=== PATIENT | male | born 1945 | race Caucasian/White ===

== ENCOUNTER 2017-04-01 17:06 | Inpatient (IN) | payer MEDICARE, OTHER ==
[~2017-04-01] VITALS: Ht 177.8 cm; Wt 83.9 kg
[2017-04-01] MEDS ORDERED: DIPHENOXYLATE/ATROPINE 2.5MG/0.025MG (LOMOTIL) TAB PO PRN (20:45)
[2017-04-01] MEDS ORDERED: FUROSEMIDE 20 MG (LASIX) TAB PO PRN (20:45)
[2017-04-01] MEDS ORDERED: PANTOPRAZOLE 20 MG TABLET (PROTONIX) PO ONE (21:00)
[2017-04-01] MEDS ORDERED: inSUlin DETERMIR 1 UNIT/0.01 ML (LEVEMIR) CHARGE PER UNIT SQ SCH (21:00)
[2017-04-01] MEDS: CARVEDILOL 12.5 MG (COREG) TABLET PO SCH (21:50)
[2017-04-01] MEDS: SIMvastatin 10 MG (ZOCOR) TAB PO SCH (21:50)
[2017-04-01] MEDS: GABAPENTIN 300 MG (NEURONTIN) CAP PO SCH (21:50)
[2017-04-01] MEDS: COLESTIPOL 1 GM (COLESTID) TAB PO SCH (21:52)
[2017-04-02 05:00] VITALS: BP 134/73
[2017-04-02] MEDS: CHLORTHALIDONE 25 MG (HYGROTON) TABLET PO SCH ×2 (05:47→17:05)
[2017-04-02 06:02] LABS: BASOPHILS % (AUTO) 0 % (0-10); EOSINOPHILS % (AUTO) 0 % (0-10); LYMPHOCYTES # (AUTO) 0.5 X 10^3 (1.0-4.0); LYMPHOCYTES % (AUTO) 8 % (12-44); MEAN CORPUSCULAR HEMOGLOBIN 29 PG (25-34); MEAN CORPUSCULAR HGB CONC 34 G/DL (32-36); MEAN CORPUSCULAR VOLUME 85 FL (80-99); MEAN PLATELET VOLUME 11.6 FL (7.4-10.4); MONOCYTES # (AUTO) 0.5 X 10^3 (0.0-1.0); MONOCYTES % (AUTO) 8 % (0-12); NEUTROPHILS # (AUTO) 5.2 X 10^3 (1.8-7.8); NEUTROPHILS % (AUTO) 84 % (42-75); PLATELET COUNT 188 10^3/uL (130-400); RED BLOOD COUNT 3.62 10^6/uL (4.35-5.85); RED CELL DISTRIBUTION WIDTH 14.5 % (10.0-14.5); WHITE BLOOD COUNT 6.2 10^3/uL (4.3-11.0)
[2017-04-02 06:20] LABS: ALBUMIN 3.6 GM/DL (3.2-4.5); BILIRUBIN,TOTAL 0.5 MG/DL (0.1-1.0); CALCIUM 10.2 MG/DL (8.5-10.1); CREATININE SERUM 2.42 MG/DL (0.60-1.30); POTASSIUM 4.3 MMOL/L (3.6-5.0); TOTAL PROTEIN 7.7 GM/DL (6.4-8.2)
[2017-04-02] MEDS ORDERED: inSUlin ASPART (NovoLOG) 1 UNIT/0.01 ML (CHARGE PER UNIT) SC SCH ×2 (07:00→12:00)
[2017-04-02] MEDS: amLODIPine 5 MG (NORVASC) TAB PO SCH (07:57)
[2017-04-02] MEDS: ASPIRIN E.C. 81 MG (ECOTRIN) TAB PO SCH (07:58)
[2017-04-02] MEDS: VITAMIN D3 1,000 UNITS (CHOLECALCIFEROL) TABLET PO SCH (07:58)
[2017-04-02] MEDS: CARVEDILOL 12.5 MG (COREG) TABLET PO SCH ×2 (07:58→20:16)
[2017-04-02] MEDS: COLESTIPOL 1 GM (COLESTID) TAB PO SCH (07:58)
[2017-04-02] MEDS: doxAzosin 4 MG (CARDURA) TAB PO SCH (08:20)
[2017-04-02] MEDS ORDERED: inSUlin (REGULAR) HUMAN 1 UNIT/0.01 ML (CHARGE PER UNIT) SC SCH (11:00)
--- NOTE | 2017-04-02 11:12 | Occupational Therapy Eval ---
OT Evaluation-General/PLF Medical Diagnosis Admission Date Apr 01, 2017 at 20:01 Medical Diagnosis: L3-4 Dec and fusion L5-S1 lami and benita foraminotamy/ diskectomy Onset Date: Mar 29, 2017 Therapy Diagnosis Therapy Diagnosis: Decreased ADL skills Height/Weight Height (Feet): 5 Height (Inches): 10.00 Weight (Pounds): 188 Weight (Ounces): 8.0 Precautions Precautions/Isolations: Fall Prevention, Standard Precautions Safety Interventions: None Weight Bear Status Weight Bearing Restriction: Weight Bearing/Tolerated Back precautions. No brace given to him from surgery. However, does have brace at home that he may have someone bring in for comfort. Referral Physician: Dr. pacheco Referral Reason: Activity Tolerance, Self Care, Evaluation/Treatment, Strengthening/ROM Medical History Pertinent Medical History: DM, GERD, HTN Additional Medical History Hyperlipidemia, Diabetic polyneuropathy, cancer, neuro stimulator placed 07-27-16 Current History Pt. states that he has had multiple surgeries and has learned how to compensate over the years. Had neuro stimulator placed in Jul this year. States that it has helped with the pain. Reviewed History: Yes Social History Home: Single Level Current Living Status: Children Entry Into Home: Stairs With Railing Steps Into Home: 3 Lives with son but son is on dialysis and can't help very much. ADL-Prior Level of Function ADL PLOF Comments Pt. was independent with basic self care needs. States that he cooked, cleaned , and did laundry. States that he can likely have someone assist with those things if needed. DME/Equipment: Tub/Shower DME/Equipment Comments Pt. has a cane and a walker. 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 Appearance Pt. is dressed and sitting up in chair. Agrees to work with OT. 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 This does limit full UE ROM. ADL-Treatment Functional [place] Measure 0=Not Assessed/NA 4=Minimal Assistance 1=Total Assistance 5=Supervision or Setup 2=Maximal Assistance 6=Modified [place] 3=Moderate Assistance 7=Complete IndependenceIRFPAI Quality Coding Scale 6 Independent with activity with or without an assistive device 5 Patient requires set up or clean up by helper. Patient completes activity by themselves 4 Supervision or touching assist (CGA). [place] provide cues , steadying assist 3 The helper provides less than half the effort to complete the activity 2 The helper provides more than half the effort to complete the activity 1 Dependent. The helper does all the effort to complete an activity 7 Patient refused to complete or attempt activity 9 The patient did not perform the activity before the current illness or injury 88 Not attempted due to Medical conditions or safety concerns Eating (FIM): 6 Eating (QC): 6 Grooming (FIM): 6 Bathing (FIM): 5 (SBA in shower.) Shower/Bathe Self (QC): 4 Upper Body Dressing (FIM): 5 Upper Body Dressing (QC): 4 Lower Body Dressing (FIM): 5 Lower Body Dressing (QC): 4 On/Off Footwear (QC): 4 Transfers (B, C, W/C) (FIM): 5 (SBA with walker.) Shower Transfer (FIM): 5 Other Treatments Pt. able to complete ADL transfers with SBA using walker. Able to doff clothing , don clothing, and shower with SBA for safety. Pt. states that he knows to take his time. No adaptive equipment needed. Pt. educated on back safety and back precautions. Education OT Patient Education: Correct positioning, Modified ADL techniques, Progress toward Goal/Update tx plan, Purpose of tx/functional activities, Reviewed precautions, Rehab process, Safety issues, Transfer techniques Teaching Recipient: Patient Teaching Methods: Demonstration, Discussion Response to Teaching: Verbalize Understanding, Return Demonstration OT Short Term Goals Short Term Goals 1=Demonstrate adherence to instructed precautions during ADL tasks. 2=Patient will verbalize/demonstrate understanding of assistive devices/ modifications for ADL. 3=Patient will improve strength/tolerance for activity to enable patient to perform ADL's. OT Travel Coordinator Goals Travel Coordinator Goals Time Frame: Apr 16, 2017 Eating (FIM): 6 Eating (QC): 6 Groomin Oral Hygiene (QC): 6 Bathing(FIM): 6 Shower/Bathe Self (QC): 6 Upper Body Dressing(FIM): 6 Upper Body Dressing (QC): 6 Lower Body Dressing(FIM): 6 Lower Body Dressing (QC): 6 On/Off Footwear (QC): 6 Toileting(FIM): 6 Toileting Hygiene (QC): 6 Transfers (B,C,W/C) (FIM): 6 Toilet/Commode Transfer(FIM): 6 Toilet/Commode Transfer (QC): 6 Shower Transfer(FIM): 6 Additional Goals: 1-Demonstrate ADL Tasks, 2-Verbalize Understanding, 3- ImproveStrength/Cristal 1=Demonstrate adherence to instructed precautions during ADL tasks. 2=Patient will verbalize/demonstrate understanding of assistive devices/ modifications for ADL. 3=Patient will improve strength/tolerance for activity to enable patient to perform ADL's. OT Education/Plan Problem List/Assessment Assessment: Decreased Activ Tolerance, Impaired I ADL's, Impaired Self-Care Skills Discharge Recommendations Plan/Recommendations: Continue POC Therapy D/C Recommendations: Home Independently Equpiment Recommendations-D/C: Extended Bath Bench Target Placement Home independently Patient/Family Goals Pt. states that he would like to be more flexible in his legs, and would like to have more endurance, walk further. Treatment Plan/Plan of Care Treatment,Training & Education: Yes Patient would benefit from OT for education, treatment and training to promote independence in ADL's, mobility, safety and/or upper extremity function for ADL' s. Plan of Care: ADL Retraining, Functional Mobility, UE Funct Exercise/Act Treatment Duration: Apr 16, 2017 Frequency: At least 5 of 7 days/Wk (IRF) Estimated Hrs Per Day: 1.5 hours per day Agreement: Yes Rehab Potential: Good Time/GCodes Start Time: 09:10 Stop Time: 11:10 Total Time Billed (hr/min): 90 Billed Treatment Time [id number] 1, EVM x 15minutes, ADL x 25minutes [id number] 1, ADL x 45minutes DEVAUGHN GUTIERREZ OT Apr 02, 2017 11:12
[2017-04-02] MEDS ORDERED: inSUlin ASPART (NovoLOG) 1 UNIT/0.01 ML (CHARGE PER UNIT) SC ONE ×2 (11:45→12:00)
--- NOTE | 2017-04-02 13:20 | Consultation-Hospitalist ---
HPI History of Present Illness: HPI/Chief Complaint CC: Medical management in rehab following lumbar spine surgery HPI: This is a 72-year-old white male of primary care provider in [place], Dr. Henry Endocrinology, and Dr Petit Nephrology who presents to the inpatient rehabilitation for severe debility requiring short stay prior to discharge home with son who works most of the time. Blood sugar was 491 prompting urgent consultation with me of which I initiated sliding scale see and we her in the mist of changing back over to Lantus his home medication since Levemir does not adequately treat his diabetes and getting back on her home dose of 60 units at night. He has not had a bowel movement since Tuesday but he does not want aggressive laxatives so Colace was ordered as he has agreed to take that. He is moving around very well with walker and denies any significant problems. I checked his last labs in the hospital creatinine is 1.8 today is 2.4 so we'll monitor that closely. 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) Alcohol Use: Denies Use Recreational Drug Use: No Smoking Status: Former Smoker Former Smoker, Quit: Jun 13, 1966 Type Used: Cigarettes Physical Abuse Screen: No Sexual Abuse: No Recent Foreign Travel: No Contact w/other who traveled: No Recent Hopitalizations: Yes (back surgery) Recent Infectious Disease Expo: No Immunizations Up To Date Date of Pneumonia Vaccine: Jun 13, 2015 Date of Influenza Vaccine: Mar 10, 2017 Seasonal Allergies Seasonal Allergies: No Surgeries Yes Orthopedic Respiratory Yes Sleep Apnea Currently Using CPAP: No Currently Using BIPAP: No Cardiovascular Yes High Cholesterol, Hypertension Neurological Yes Neuropathy Genitourinary Yes Renal Failure Gastrointestinal Yes Gastroesophageal Reflux, Chronic Constipation Musculoskeletal Yes Arthritis, Back Injury, Chronic Back Pain, Spasms Endocrine History of Endocrine Disorders: Yes Endocrine Disorders: Diabetes, Insulin dep HEENT History of HEENT Disorders: No Cancer Yes Psychosocial History of Psychiatric Problem: No Integumentary History of Skin or Integumenta: No Blood Transfusions History of Blood Disorders: No Family Medical History Family Hx: Patient reports no known family medical history. Review of Systems Constitutional: see HPI EENTM: no symptoms reported Respiratory: no symptoms reported Cardiovascular: no symptoms reported Gastrointestinal: constipation Genitourinary: no symptoms reported Musculoskeletal: back pain Skin: no symptoms reported Psychiatric/Neurological: No Symptoms Reported All Other Systems Reviewed Negative Unless Noted: Yes Physical Exam Physical Exam Vital Signs Vital Sign - Last 12Hours 04/02/17 05:00 Temp 97.4 Pulse 69 Resp 24 B/P (MAP) 134/73 Pulse Ox 94 O2 Delivery Room Air Capillary Refill : General Appearance: No Apparent Distress, WD/WN, Chronically ill, Other ( kyphosis noted) Eyes: Bilateral Eye Normal Inspection, Bilateral Eye PERRL HEENT: PERRL/EOMI, Normal ENT Inspection, Pharynx Normal Neck: Full Range of Motion, Normal Inspection, Non Tender, Supple, Carotid Bruit Respiratory: Chest Non Tender, Lungs Clear, Normal Breath Sounds, No Accessory Muscle Use, No Respiratory Distress Cardiovascular: Regular Rate, Rhythm, No Edema, No Gallop, No JVD, No Murmur, Normal Peripheral Pulses Gastrointestinal: Normal Bowel Sounds, No Organomegaly, No Pulsatile Mass, Non Tender, Soft Back: Normal Inspection, No CVA Tenderness, No Vertebral Tenderness Extremity: Normal Capillary Refill, Normal Inspection, Normal Range of Motion, Non Tender, No Calf Tenderness, No Pedal Edema Neurologic/Psychiatric: Alert, Oriented x3, No Motor/Sensory Deficits, Normal Mood/Affect Skin: Normal Color, Warm/Dry Lymphatic: No Adenopathy Results Results/Procedures Lab Laboratory Tests 04/02/17 05:43 Assessment/Plan Admission Diagnosis Assessment: Diabetes mellitus adequate control due to steroid injection and insufficient insulin so resuming home medication including Lantus and do not substitute Levemir since that is inadequate per patient Postop constipation agrees to Colace but nothing more Chronic renal failure managed by nephrology usual creatinine is 1.8-2.2 Hypertension Hyperlipidemia Lumbar stenosis Kyphosis chronic Assessment and Plan Plan: Sliding scale NovoLog see Home Lantus supply of 60 units at night Colace for constipation Monitor creatinine closely Clinical Quality Measures DVT/VTE Risk/Contraindication: Risk Factor Score Per Nursin RFS Level Per Nursing on Admit: 4+=Very High GARRICK MCKEON 21, 2017 13:20
[2017-04-02] MEDS ORDERED: HYDROcodone/APAP 10 MG/325 MG (LORTAB) TAB PO PRN (13:30)
[2017-04-02] MEDS ORDERED: DOCUSATE SODIUM 100 MG (COLACE) CAP PO SCH (13:30)
--- NOTE | 2017-04-02 13:40 | Physical Therapy Evaluation ---
PT Evaluation-General Medical Diagnosis Admission Date Apr 01, 2017 at 20:01 Medical Diagnosis: L3-4 Dec and fusion L5-S1 lami and benita foraminotamy/ diskectomy Onset Date: Mar 29, 2017 Therapy Diagnosis Therapy Diagnosis: impaired mobility, strength, endurance Height/Weight Height (Feet): 5 Height (Inches): 10.00 Weight (Pounds): 188 Weight (Ounces): 8.0 Precautions Precautions/Isolations: Fall Prevention, Standard Precautions Referral Physician: Dr. pacheco Reason for Referral: Evaluation/Treatment Medical History Pertinent Medical History: DM, GERD, HTN, Neuropathy Additional Medical History hyperlipidemia, chronic diarrhea, anemia, morbid obesity, NOELLE, chronic low back pain, spinal cord stimulator Reviewed History: Yes Social History Home: Single Level Current Living Status: Children Entry Into Home: Stairs With Railing PT Steps Into Home: 3 Patient states his son lives with him but he is not in the best of health. Prior/Core FIM Prior Level of Function Functional [place] Measure 0=Not Assessed/NA 4=Minimal Assistance 1=Total Assistance 5=Supervision or Setup 2=Maximal Assistance 6=Modified [place] 3=Moderate Assistance 7=Complete [place] Bed Mobility: 6 Transfers (B,C,W/C) (FIM): 6 Gait: 6 Patient used a cane and sometimes 2 canes prior to his surgery. PT Evaluation-Current Subjective Patient in recliner pre tx, agrees to PT, has pain of 9/10 in low back, nurse notified and pain meds given. Patient does not have a back brace to wear. Patient states he had bad pain in his legs before the surgery and it has gotten much better. Worse pain in the left leg. Pt/Family Goals "to walk without pain" Objective Patient Orientation: Person, Place, Situation ROM/Strength ROM Lower Extremities WNL Strenght Lower Extremities right lower extremity (hip flexion 3+/5, knee flexion 4/5, knee extension 4/5, dorsiflexion 4/5), left lower extremity (hip flexion 3+/5, knee flexion 4/5, knee extension 4/5, dorsiflexion 4/5) Integumentary/Posture Bowel Incontinence: No Neuromuscular (Tone, Coordination, Reflexes) WNL Sensory Hearing: Functional Sensation Right Lower Extremit: Intact Sensation Left Lower Extremity: Intact Sensation Lower Extremities Intact light touch sensation bilaterally, tested in L4-5 and S1 dermatomes. Patient has no complaints of numbness or tingling. Transfers Functional [place] Measure 0=Not Assessed/NA 4=Minimal Assistance 1=Total Assistance 5=Supervision or Setup 2=Maximal Assistance 6=Modified [place] 3=Moderate Assistance 7=Complete IndependenceIRFPAI Quality Coding Scale 6 Independent with activity with or without an assistive device 5 Patient requires set up or clean up by helper. Patient completes activity by themselves 4 Supervision or touching assist (CGA). [place] provide cues , steadying assist 3 The helper provides less than half the effort to complete the activity 2 The helper provides more than half the effort to complete the activity 1 Dependent. The helper does all the effort to complete an activity 7 Patient refused to complete or attempt activity 9 The patient did not perform the activity before the current illness or injury 88 Not attempted due to Medical conditions or safety concerns Transfers (B, C, W/C) (FIM): 5 Scootin Rollin Roll Left to Right (QC): 4 Supine to/from Sit: 5 Sit to/from Stand: 5 Sit to Lying (QC): 4 Lying to Sitting/Side of Bed(Q: 4 Sit to Stand (QC): 4 Patient performs bed mobility and transfers with SBA. Good safety, appropriate use of hand placement, does a log roll well. Gait Does the Patient Walk?: Yes Mode of Locomotion: Walk Anticipated Mode of Locomotion: Walk Gait (FIM): 5 Walk 10 feet (QC): 4 Walk 50 ft with 2 Turns(QC): 4 Walk 150 ft (QC): 4 Walking 10ft/uneven surface-QC: 4 Distance: 150'x3 Gait Level of Assist: 5 Gait Persons Needed: 1 Gait Assistive Device: FWW Comments/Gait Description Patient can ambulate 150' with SBA using a rolling walker (including 50' with at least 2 turns of 90 degrees and 10' over an uneven surface). He has slow, steady, but antalgic ambulation. He tends to slump forward pretty far. Wheelchair Training Does the Pt Use a Wheelchair?: No Stairs Stairs (FIM): 2 #of Steps: 4 Level of Assist: 5 1 Step (curb) (QC): 4 4 Steps (QC): 4 12 Steps (QC): 88 Patient can go up and down 4 steps using 2 handrails with SBA. Balance Sitting Static: Normal Sitting Dynamic: Normal Standing Static: Good Standing Dynamic: Good Treatment NuStep 15' level 5, bed mobility (log roll) training, transfer training, ambulation Assessment/Needs Patient has impaired mobility, strength, and endurance post lumbar surgery. He has significant pain and poor posture. Rehab Potential: Fair PT Short Term Goals Short Term Goals Time Frame: Apr 09, 2017 Transfers (B,C,W/C) (FIM): 6 Gait (FIM): 6 Gait Distance Comment: 300' Gait Assistive Device: FWW Stairs (FIM): 2 # of Steps: 8 Stairs Level of Assist: 5 PT Assisted Goals Assisted Goals PT Assisted Goals Time Frame: Apr 23, 2017 Transfers (B,C,W/C) (FIM): 6 Sit to Lying (QC): 6 Lying-Sitting on Side/Bed(QC): 6 Sit to Stand (QC): 6 Rollin Roll Left to Right (QC): 6 Car Transfer (QC): 6 Gait (FIM): 6 Distance: 300' Walk 10 feet (QC): 6 Walk 10ft-Uneven Surface(QC): 6 Walk 50ft with 2 Turns (QC): 6 Walk 150 ft (QC): 6 Gait Assistive Device: Cane Single Point Stairs (FIM): 5 # of Steps: 12 1 Step (curb) (QC): 4 4 Steps (QC): 4 12 Steps (QC): 4 Stairs Level Of Assist: 5 Picking up an Object (QC): 4 PT Plan Problem List Problem List: Activity Tolerance, Functional Strength, Safety, Balance, Gait, Transfer, Bed Mobility, ROM Treatment/Plan Treatment Plan: Continue Plan of Care Treatment Plan: Bed Mobility, Education, Functional Activity Cristal, Functional Strength, Group Therapy, Gait, Safety, Therapeutic Exercise, Transfers Treatment Duration: Apr 23, 2017 Frequency: At least 5 of 7 days/Wk (IRF) Estimated Hrs Per Day: 1.5 hours per day Patient and/or Family Agrees t: Yes Safety Risks/Education Patient Education: Gait Training, Transfer Techniques, Steps, Correct Positioning, Disease Process, Safety Issues Teaching Recipient: Patient Teaching Methods: Demonstration, Discussion Response to Teaching: Reinforcement Needed Discharge Recommendations Plan Patient will perform bed mobility and transfer training, balance and endurance training, functional strengthening, stair training, gait training, and education , to improve functional mobility and independence at home. Therapy D/C Recommendations: Home w/ Family Support Time/GCodes Time In: 1215 Time Out: 1345 Total Billed Treatment Time: 90 Total Billed Treatment 1 visit EVL 30' GT 30' EX 15' FA 15' DESIREE REZA PT Apr 02, 2017 13:40
[2017-04-02] MEDS: DOCUSATE SODIUM 100 MG (COLACE) CAP PO SCH ×2 (13:58→20:16)
[2017-04-02] MEDS: inSUlin ASPART (NovoLOG) 1 UNIT/0.01 ML (CHARGE PER UNIT) SC SCH ×2 (16:29→20:15)
[2017-04-02] MEDS ORDERED: CHLORTHALIDONE 25 MG (HYGROTON) TABLET PO SCH (17:00)
[2017-04-02 17:27] VITALS: BP 131/63
--- NOTE | 2017-04-02 18:04 | PM&R Post Admission Assessment ---
Post Admission Physician Asses The preadmission screen agrees with the post admission assessment that the patient is a good candidate for inpatient rehabilitation. The patient will have a comprehensive program of inpatient rehabilitation with a goal of maximizing level of functional independence prior to discharge home with [facility]. The patient will have PT/OT ninety minutes per day, each discipline , five days a week for 10 days for gait, strengthening, conditioning, balance, ADLs, any patient/family/caregiver training as necessary. Speech therapy to do cognitive assessment and treat as indicated. Rehabilitation nursing to assist with bowel, bladder, skin, wound care, medication administration, pain management. Musical Instrument Supervisor to assist with discharge planning, community reentry. SCD's for DVT prophylaxis. He appears to be well motivated to participate in three hours of therapy a day. He should be able to tolerate three hours of therapy a day from a medical and surgicalstandpoint. He should benefit from the three hours of therapy a day. He has a reasonable discharge plan, reasonable discharge rehabilitation goals and a supportive family. He has various comorbidities that need to be closely monitored with medications and treatments adjusted on a daily basis as needed. These include: POORLY CONTROLLED dm htn pOSTOPANEMIA] Barriers to discharge for this patient who had been independent prior to this are for him to be modified independent to supervision for ADLs and mobility skills prior to discharge home with , so as to lessen the burden of the caregivers.tHE PATIENT HAD BEEN mODIFIED iNDEPENDENT WITH A CANE PRIOR TO THIS Risks for this patient include: 1. Fall 2. Fracture 3. DVT 4. Pulmonary embolism 5. Wound infection 6. Skin breakdown 7. Contractures 8. Poorly controlled pain 9. Urinary retention 10. UTI 11. Respiratory infection 12. Aspiration 13 pOORLY CONTROLLED dm 14. pOORLY CONTROLLED htn 15. wORSENING cHRONIC kIDNEY d Estimated Length of Stay: 10]days Prognosis: Rehab prognosis appears good for goal of discharge home with [facility] modified independent to supervision for ADLs and mobility skills. YOBANY RIOJAS MD Apr 02, 2017 18:04
--- NOTE | 2017-04-02 19:10 | HISTORY AND PHYSICAL ---
DATE OF SERVICE: CHIEF COMPLAINT: Difficulty with walking. 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 The patient was assessed by spine surgery on an outpatient basis and the patient was admitted to outside hospital in [place], [place] for a lumbar laminectomy and fusion of L3-S1 and a L5-S1 discectomy for HNP associated with Lumbar spinal stenosis. The patient has had a neurostimulator placed in the past as well as other conservative treatments. It did not control his pain. He is now referred to inpatient rehabilitation unit for ongoing rehabilitation prior to discharge home alone. He lives in [place], [place]. Currently, he is min assist for dressing, modified independent for eating, set up for grooming, min assist for bathing and toileting. He is min assist for transfers, bed mobility and ambulation with a front wheel walker. He is utilizing hydrocodone/APAP for pain control. His blood sugar today was up to 491. He apparently has been a type 1 diabetic since a teenager and had been stable at home followed by endocrinology in [place]. He had a course of steroids while at outside hospital in [place] which apparently has decreased his control. Dr. Varghese has been consulted today on 04/02/2017. Appreciate, her consult and orders. PAST MEDICAL HISTORY: Type 1 diabetes mellitus and hypertension. PAST SURGICAL HISTORY: As per above. ALLERGIES: Penicillin. FAMILY HISTORY: Noncontributory. 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 REVIEW OF SYSTEMS: Ten point review of systems significant for constipation. He reports no BM for several days. He does have a history of chronic constipation, also back pain. MEDICATIONS: Hydrocodone/APAP 10 one tablet p.o. b.i.d. p.r.n. moderate pain, Lantus insulin 60 units subq bedtime. OxyIR 7.5 mg p.o. 4 hours p.r.n. severe pain. NovoLog insulin sliding scale insulin regimen C. Colace 200 mg p.o. b.i.d. Vitamin D3 2000 units p.o. daily. Amlodipine 10 mg p.o. daily. ASA 81 mg p.o. daily. Cardura 4 mg p.o. daily. Hydralazine 25 mg p.o. b.i.d. Coreg 25 mg p.o. b.i.d. Gabapentin 300 mg p.o. at bedtime. Simvastatin 10 mg p.o. at bedtime. Protonix 20 mg p.o. b.i.d. Flexeril 10 mg p.o. daily p.r.n. muscle spasm. PHYSICAL EXAMINATION: GENERAL: Significant for a male appearing stated age, alert and oriented, no acute distress. VITAL SIGNS: He is afebrile, pulse is 67, respirations 18, blood pressure 131/63, O2 sat 96% on room air. HEENT: Vision, speech hearing grossly intact. No oral lesions noted. NECK: Supple without mass. HEART: Regular rhythm. LUNGS: Clear. ABDOMEN: Soft, nontender. Bowel sounds present. EXTREMITIES: No leg edema. No calf tenderness. BACK: Incision site with a clean, dry dressing in place. MUSCULOSKELETAL: The patient has functional active range of motion of all four extremities. He has normal strength both upper extremities, strength of both lower extremities 3+, at the hip flexors 4/5, otherwise. NEUROLOGIC: Sensation is grossly intact to touch. Cognition grossly intact. IMPRESSION: 1. Ambulatory dysfunction secondary to lumbar spinal stenosis and HNP status post decompression,fusion and discectomy as per above done by Spine surgery, outside [place], [place]. 2. Chronic constipation exacerbated by postop constipation, meds adjusted today. 3. Kyphosis of the spine. 3. Poorly controlled diabetes mellitus type 1 at this time, medications adjusted by Dr. Varghese. 4. Hypertension, controlled with medication. 5. Mild postop anemia. 6. Chronic kidney disease related to hypertension and diabetes mellitus. PLAN: The patient will have a comprehensive program of inpatient rehabilitation, with goal of maximizing level of functional independence prior to discharge home with home health care. The patient will have PT, OT 90 minutes each discipline, five days a week for 10 days for gait strengthening and conditioning, balance, ADLs any patient family caregiver training necessary adaptive equipment and training necessary. Speech therapy to do cognitive assessment and treat as indicated. Rehabilitation nursing to assist with bowel, bladder skin care, medication administration and pain management. multimedia services manager to assist with discharge planning and community reentry. Follow up with Dr. Varghese as per her schedule. Monitor Accu-Cheks and adjust insulin regimen as appropriate, therapy with cardiac and fall precautions. ESTIMATED LENGTH OF STAY: 10 days. PROGNOSIS: Fair. Prognosis to good for goal of discharging home with home health care modified independent to supervision for ADLs and mobility skills. DIET: Carb consistent. CODE STATUS: Full code. Follow up with his spine surgeon and PCP upon discharge on an outpatient basis as well as his lunchroom operator and director of enterprise architecture ben Job ID: [id number] DocumentID: [id number] Dictated Date: 04/02/2017 18:16:14 Family Consultant Date: 04/02/2017 19:10:14 Dictated By: YOBANY RIOJAS MD MTDD
[2017-04-02] MEDS: LANTUS SOLOSTAR SQ SCH (20:15)
[2017-04-02] MEDS: GABAPENTIN 300 MG (NEURONTIN) CAP PO SCH (20:16)
[2017-04-02] MEDS: SIMvastatin 10 MG (ZOCOR) TAB PO SCH (20:16)
[2017-04-02] MEDS ORDERED: inSUlin DETERMIR 1 UNIT/0.01 ML (LEVEMIR) CHARGE PER UNIT SQ SCH (21:00)
[2017-04-03] MEDS: CHLORTHALIDONE 25 MG (HYGROTON) TABLET PO SCH ×2 (06:02→16:35)
[2017-04-03] MEDS: inSUlin ASPART (NovoLOG) 1 UNIT/0.01 ML (CHARGE PER UNIT) SC SCH ×4 (06:03→20:56)
[2017-04-03 06:09] VITALS: BP 113/54
[2017-04-03] MEDS: amLODIPine 5 MG (NORVASC) TAB PO SCH (08:54)
[2017-04-03] MEDS: VITAMIN D3 1,000 UNITS (CHOLECALCIFEROL) TABLET PO SCH (08:54)
[2017-04-03] MEDS: ASPIRIN E.C. 81 MG (ECOTRIN) TAB PO SCH (08:54)
[2017-04-03] MEDS: CARVEDILOL 12.5 MG (COREG) TABLET PO SCH ×2 (08:55→19:50)
[2017-04-03] MEDS: DOCUSATE SODIUM 100 MG (COLACE) CAP PO SCH ×2 (08:55→19:50)
[2017-04-03] MEDS: doxAzosin 4 MG (CARDURA) TAB PO SCH (08:55)
[2017-04-03] MEDS ORDERED: OMEP20CA12 PO (17:45)
[2017-04-03] MEDS ORDERED: CHOL20003 PO (17:45)
[2017-04-03] MEDS ORDERED: DIPH1TAB25 PO (17:45)
[2017-04-03] MEDS ORDERED: ACET325T49 PO (17:45)
[2017-04-03] MEDS ORDERED: LOVA10TA PO (17:45)
[2017-04-03] MEDS ORDERED: INSU100I14 SQ (17:45)
[2017-04-03] MEDS ORDERED: AMLO10TA2 PO (17:45)
[2017-04-03] MEDS ORDERED: ASPI-983 PO (17:45)
[2017-04-03] MEDS ORDERED: CARV25TA PO (17:45)
[2017-04-03] MEDS ORDERED: COLE1TAB PO (17:45)
[2017-04-03] MEDS ORDERED: GABA-488 PO (17:45)
[2017-04-03] MEDS ORDERED: INSU100I10 SQ (17:45)
[2017-04-03] MEDS ORDERED: DOXA2TAB PO (17:45)
[2017-04-03] MEDS ORDERED: FURO20TA4 PO (17:45)
[2017-04-03] MEDS ORDERED: CHLO25TA22 PO (17:45)
[2017-04-03] MEDS ORDERED: TRAM50TA2 PO (17:45)
[2017-04-03] MEDS ORDERED: OXYC15TA79 PO (18:19)
[2017-04-03] MEDS: SIMvastatin 10 MG (ZOCOR) TAB PO SCH (19:50)
[2017-04-03] MEDS: GABAPENTIN 300 MG (NEURONTIN) CAP PO SCH (19:50)
[2017-04-03] MEDS: LANTUS SOLOSTAR SQ SCH (19:51)
[2017-04-03 19:57] VITALS: BP 134/68
[2017-04-04 05:19] VITALS: BP 139/64
[2017-04-04] MEDS: inSUlin ASPART (NovoLOG) 1 UNIT/0.01 ML (CHARGE PER UNIT) SC SCH ×4 (06:56→20:44)
[2017-04-04] MEDS: CHLORTHALIDONE 25 MG (HYGROTON) TABLET PO SCH ×2 (06:56→16:27)
[2017-04-04] MEDS: amLODIPine 5 MG (NORVASC) TAB PO SCH (08:30)
[2017-04-04] MEDS: ASPIRIN E.C. 81 MG (ECOTRIN) TAB PO SCH (08:30)
[2017-04-04] MEDS: doxAzosin 4 MG (CARDURA) TAB PO SCH (08:31)
[2017-04-04] MEDS: VITAMIN D3 1,000 UNITS (CHOLECALCIFEROL) TABLET PO SCH (08:31)
[2017-04-04] MEDS: DOCUSATE SODIUM 100 MG (COLACE) CAP PO SCH ×2 (08:31→19:34)
[2017-04-04] MEDS: CARVEDILOL 12.5 MG (COREG) TABLET PO SCH ×2 (08:31→19:35)
[2017-04-04] MEDS ORDERED: CYCL10TA9 PO (10:43)
[2017-04-04] MEDS ORDERED: GABA-486 PO (10:43)
[2017-04-04] MEDS ORDERED: SODI650T PO (10:43)
[2017-04-04] MEDS ORDERED: HYDR-3820 PO (10:43)
--- NOTE | 2017-04-04 12:09 | Physical Therapy Daily Note ---
PT Daily Note-Current Subjective Patient is seated in his room upon PT entering. He reports that his back pain is a lot better since the surgery. He reports having some back pain around the incision of the surgery and some radiating nerve pain down the L LE. Pain Numeric Pain Scale: 5-Moderate Pain Location: Left Location Body Site: Back Comment: Radiating pain from back down L LE Appearance Patient appears in good health. Mental Status Patient Orientation: Normal For Age Transfers Functional [place] Measure 0=Not Assessed/NA 4=Minimal Assistance 1=Total Assistance 5=Supervision or Setup 2=Maximal Assistance 6=Modified [place] 3=Moderate Assistance 7=Complete IndependenceIRFPAI Quality Coding Scale 6 Independent with activity with or without an assistive device 5 Patient requires set up or clean up by helper. Patient completes activity by themselves 4 Supervision or touching assist (CGA). [place] provide cues , steadying assist 3 The helper provides less than half the effort to complete the activity 2 The helper provides more than half the effort to complete the activity 1 Dependent. The helper does all the effort to complete an activity 7 Patient refused to complete or attempt activity 9 The patient did not perform the activity before the current illness or injury 88 Not attempted due to Medical conditions or safety concerns Transfers (B, C, W/C) (FIM): 6 Scootin Rollin Roll Left to Right (QC): 5 Supine to/from Sit: 6 Sit to/from Stand: 6 Sit to Lying (QC): 5 Sit to Stand (QC): 5 Chair/Bdf-xf-[id number] Xfer(QC): 5 Bed to/from Chair: 6 Car Transfer (QC): 5 Patient can perform transfers modified independently. PT believes that transfers are performed in a safe manner that he can perform without supervision. Patient was able to toilet himself. Weight Bearing Right Lower Extremity: Right Weight Bearing/Tolerated Left Lower Extremity: Left Weight Bearing/Tolerated Gait Training Does the Patient Walk?: Yes Gait (FIM): 6 Distance: >300' Walk 10 feet (QC): 5 Walk 50 ft with 2 Turns(QC): 5 Walk 150 ft (QC): 5 Gait Level of Assist: 6 Gait Persons Needed: 1 Gait Assistive Device: FWW PT walks along side of patient, but patient ambulates in a safe enough manner that PT is there to assess progress. Stair Training Stair Training: Handrails/: 2 handrails Stairs (FIM): 5 #of Steps: 12 1 Step (curb) (QC): 4 4 Steps (QC): 4 12 Steps (QC): 4 Stairs: Pattern: Step to Level of Assist: 5 PT assesses patient ascending and descending the stairs. Patient received cues from the PT on correct step to stair training for more safety. Exercises Seated Therapy Exercises: Long arc quads (Nerve sliders. Patient instruction to lift head as leg is extended.), Kicking activity (Nerve tensioners. Patient remains in slouched position when extending leg.), Hamstring Curls (Hamstring Stretch 5 x 15" bilateral) Seated Reps: 10 NuStep Minutes: 15 (improve aerobic capacity, build muscular endurance though the LE) NuStep Workload: 5 Assessment Current Status: Good Progress Patient performs transfers and gait with a FWW modified independently. Patient is still receiving some cues for more safe techniques with ambulation, but from a PT standpoint, patient may be able to safely return to his home with family and community this week. PT Short Term Goals Short Term Goals Time Frame: Apr 09, 2017 Transfers (B,C,W/C) (FIM): 6 Gait (FIM): 6 Gait Distance Comment: 300' Gait Assistive Device: FWW Stairs (FIM): 2 # of Steps: 8 Stairs Level of Assist: 5 PT Usp Goals Usp Goals PT Manager Erp Goals Time Frame: Apr 23, 2017 Transfers (B,C,W/C) (FIM): 6 (met 04/04/17) Sit to Lying (QC): 6 Lying-Sitting on Side/Bed(QC): 6 Sit to Stand (QC): 6 Rollin (met 04/04/17) Roll Left to Right (QC): 6 Car Transfer (QC): 6 Gait (FIM): 6 (met 04/04/17) Distance: 300' Walk 10 feet (QC): 6 Walk 10ft-Uneven Surface(QC): 6 Walk 50ft with 2 Turns (QC): 6 Walk 150 ft (QC): 6 Gait Assistive Device: Cane Single Point Stairs (FIM): 5 (met 04/04/17) # of Steps: 12 (met 04/04/17) 1 Step (curb) (QC): 4 (met 04/04/17) 4 Steps (QC): 4 (met 04/04/17) 12 Steps (QC): 4 (met 04/04/17) Stairs Level Of Assist: 5 (met 04/04/17) Picking up an Object (QC): 4 PT Plan Problem List Problem List: Functional Strength, Safety, Balance, Gait Treatment/Plan Treatment Plan: Continue Plan of Care Treatment Plan: Bed Mobility, Education, Functional Activity Cristal, Functional Strength, Group Therapy, Gait, Safety, Therapeutic Exercise, Transfers Treatment Duration: Apr 23, 2017 Frequency: At least 5 of 7 days/Wk (IRF) Estimated Hrs Per Day: 1.5 hours per day Patient and/or Family Agrees t: Yes Discharge Recommendations Therapy D/C Recommendations: Home w/ Family Support, Physical Therapy Home Care Time/GCodes Time In: 1100 Time Out: 1200 Total Billed Treatment Time: 60 Total Billed Treatment 1 visit EX x 2 30 min GT 15 min FA 15 min JOHANN BHAKTA PT Apr 04, 2017 12:09
--- NOTE | 2017-04-04 13:50 | ST Cognitive Linguistic Eval ---
Speech Evaluation-General Medical Diagnosis L3-4 Dec and fusion L5-S1 lami and benita foraminotamy/diskectomy Onset Date: Mar 29, 2017 Therapy Diagnosis Therapy Diagnosis: Cognitive Linguistic Functions WNL Precautions Precautions/Isolations: Fall Prevention, Standard Precautions Referral Referring Physician: Dr. Car Morton Reason for Referral: Evaluation/Treatment Cognitive Evaluation Medical History Pertinent Medical History: DM, GERD, HTN, Neuropathy Reviewed History: Yes Social History Current Living Status: Children Speech PLF-Current Status Prior Level of Function The patient denied prior challenges with speech, language, or cognition. Subjective The patient was recently admitted to [facility] following a back procedure. The patient greeted the clinician appropriately and was agreeable to participation in the cognitive evaluation. Language Eval: Auditory Comprehends Simple Yes/No Ques: Functional Indent/Objects Multiple [place]: Functional Ident/Pics in Multiple [place]: Functional Follows 1-Step Commands: Functional Follows Complex Directions: Functional Follows General Conversations: Functional Language Eval: Verbal Language Completes Spontaneous Greeting: Functional Produces Auto, Serial Info: Functional Imitates Simple Words/Phrases: Functional Word Finding: Functional Requests Basic Needs: Functional States Basic Personal Info: Functional Expresses Complex Ideas: Functional Cognitive Patient Orientation The patient was independently oriented to month, year, day of week, and date. Objective Cognitive Domain Attention: WNL Memory: WNL Problem Solving: Functional Executive Functions: WNL Objective Impression The patient displayed cognitive linguistic skills within normal limits and appropriate for completion of ADL's. Communication/Social Cognition Comprehension: 6 Expression: 6 Social Interaction: 6 Problem Solvin Memory: 6 Speech Patient Assess Expression of Ideas/Wants: Expression (4) Understanding [place] Content: Understands (4) Brief Interview-Mental Status: Yes Repetition of Three Words: Three (3) Temporal Orientation: Year: Correct (3) Temporal Orientation: Month: Accurate within 5 days(2) Temporal Orientation: Day: Correct (1) Recall : Wear to say "Sock": Yes, no cue required (2) Recall : Color: Yes, no cue required (2) Recall : Bed: Yes, no cue required (2) Speech-Plan Treatment Plan Speech Therapy Treatment Plan: Discontinue ST (Evaluation, only.) Evaluation, only. Frequency: Modified Program (IRF) (Evaluation, only.) Estimated Hrs Per Day: Other (Evaluation, only.) Rehab Potential: Fair Safety Risks/Education Teaching Recipient: Patient Teaching Methods: Discussion Response to Teaching: Verbalize Understanding Time Speech Therapy Time In: 12:15 Speech Therapy Time Out: 12:30 Total Billed Time: 15 Billed Treatment Time 1, BARB DUNHAM Apr 04, 2017 13:50
--- NOTE | 2017-04-04 14:36 | Occupational Ther Daily Note ---
OT Current Status-Daily Note Subjective No pain reported. Appearance Pt. showered self last night with Mod I. Pt. is already dressed today. Mental Status/Objective Patient Orientation: Person, Place, Time Functional [place] Measure 0=Not Assessed/NA 4=Minimal Assistance 1=Total Assistance 5=Supervision or Setup 2=Maximal Assistance 6=Modified [place] 3=Moderate Assistance 7=Complete [place] ADL-Treatment Functional [place] Measure 0=Not Assessed/NA 4=Minimal Assistance 1=Total Assistance 5=Supervision or Setup 2=Maximal Assistance 6=Modified [place] 3=Moderate Assistance 7=Complete IndependenceIRFPAI Quality Coding Scale 6 Independent with activity with or without an assistive device 5 Patient requires set up or clean up by helper. Patient completes activity by themselves 4 Supervision or touching assist (CGA). [place] provide cues , steadying assist 3 The helper provides less than half the effort to complete the activity 2 The helper provides more than half the effort to complete the activity 1 Dependent. The helper does all the effort to complete an activity 7 Patient refused to complete or attempt activity 9 The patient did not perform the activity before the current illness or injury 88 Not attempted due to Medical conditions or safety concerns Transfers (B, C, W/C) (FIM): 6 (Pt. is able to fully transfer and ambulate with Mod I using walker.) Pt. is already up in chair and dressed when OT comes into room. OT explains to pt. back safety while performing laundry and kitchen tasks. Pt. states that he already practices good safety since he has "lived with this so long" but will practice them anyways. Pt. demonstrates ability to complete simple laundry and kitchen task using aitchbone breaker (uses bent cane at home) to retrieve laundry from dryer/washer, and cabinets. Pt. is educated about walker basket/tray, and shown pictures/information about them. States that this is a good idea and that he might get one. Pt. ambulates throughout gym with walker. Continually states that he is doing well, and that he has lived with this for so long. Pt. does not seem to understand need for OT, as he knows how to bathe/dress/ complete IADL tasks. Pt. ambulates to gym and completed 15 minutes on armbike at min resistance to increase overall strength and endurance. Pt. is educated that if he feels uncomfortable or feels that he needs to take a break, that he should take a break. Pt. verbalizes understanding. All needs met back in room. Education OT Patient Education: Correct positioning, Exercise program, Home exercise program, Modified ADL techniques, Progress toward Goal/Update tx plan, Purpose of tx/functional activities, Reviewed precautions, Rehab process, Transfer techniques, Use of adapted equipment Teaching Recipient: Patient Teaching Methods: Demonstration, Discussion Response to Teaching: Verbalize Understanding, Return Demonstration OT Short Term Goals Short Term Goals Transfers (B,C,W/C) (FIM): 6 1=Demonstrate adherence to instructed precautions during ADL tasks. 2=Patient will verbalize/demonstrate understanding of assistive devices/ modifications for ADL. 3=Patient will improve strength/tolerance for activity to enable patient to perform ADL's. OT Disaster Recovery Analyst Goals Detention Goals Time Frame: Apr 16, 2017 Eating (FIM): 6 Eating (QC): 6 Groomin Oral Hygiene (QC): 6 Bathing(FIM): 6 Shower/Bathe Self (QC): 6 Upper Body Dressing(FIM): 6 Upper Body Dressing (QC): 6 Lower Body Dressing(FIM): 6 Lower Body Dressing (QC): 6 On/Off Footwear (QC): 6 Toileting(FIM): 6 Toileting Hygiene (QC): 6 Transfers (B,C,W/C) (FIM): 6 Toilet/Commode Transfer(FIM): 6 Toilet/Commode Transfer (QC): 6 Shower Transfer(FIM): 6 Additional Goals: 1-Demonstrate ADL Tasks, 2-Verbalize Understanding, 3- ImproveStrength/Cristal 1=Demonstrate adherence to instructed precautions during ADL tasks. 2=Patient will verbalize/demonstrate understanding of assistive devices/ modifications for ADL. 3=Patient will improve strength/tolerance for activity to enable patient to perform ADL's. OT Education/Plan Problem List/Assessment Assessment: Decreased Activ Tolerance Discharge Recommendations Plan/Recommendations: Continue POC Therapy D/C Recommendations: Home Independently Equpiment Recommendations-D/C: Walker Bag or Basket Target Placement Home with support of son as needed. Treatment Plan/Plan of Care Treatment,Training & Education: Yes Patient would benefit from OT for education, treatment and training to promote independence in ADL's, mobility, safety and/or upper extremity function for ADL' s. Plan of Care: ADL Retraining, Functional Mobility, UE Funct Exercise/Act Treatment Duration: Apr 16, 2017 Frequency: At least 5 of 7 days/Wk (IRF) Estimated Hrs Per Day: 1.5 hours per day Agreement: Yes Rehab Potential: Good Time/GCodes Start Time: 10:00 Stop Time: 11:00 Total Time Billed (hr/min): 60 Billed Treatment Time 1, EX x 15minutes, ADL x 45minutes DEVAUGHN GUTIERREZ OT Apr 04, 2017 14:36
--- NOTE | 2017-04-04 14:49 | Therapy Group Daily Note ---
Therapy Daily Group Note Patient Education Topic Other List Below (posture, proper breathing, benefits of exercise) Exercises LE Seated Exercise, UE Exercise Other/Notes Other/Notes Pt was an active participant in OT/PT group. He introduced himself and shared the first thing he likes to do in the fall. He contributed to discussion/ education on posture and breathing, as well as the rehab process on ARU. He also did seated UE and LE exercises, modifying them as needed for his physical limitations. He was taken back to his room per w/c and transferred mod assist to recliner. Pt left up in recliner,lyon in hand, all needs met. Start Time: 13:00 Stop Time: 14:15 Total Billed Treatment Time: 75 Total Billed Treatment 1,GRP BENNY WONG INVOICING SPECIALIST Apr 04, 2017 14:49
[2017-04-04] MEDS ORDERED: SENNA W/DOCUSATE (SENOKOT S) TABLET PO PRN (17:15)
--- NOTE | 2017-04-04 17:19 | Progress Note-Hospitalist ---
Subjective HPI/CC On Admission Date Seen by Provider: Apr 04, 2017 Time Seen by Provider: 15:30 CC: Medical management in rehab following lumbar spine surgery HPI: This is a 72-year-old white male of primary care provider in [place], Dr. Henry Endocrinology, and Dr Petit Nephrology who presents to the inpatient rehabilitation for severe debility requiring short stay prior to discharge home with son who works most of the time. Blood sugar was 491 prompting urgent consultation with me of which I initiated sliding scale see and we her in the mist of changing back over to Lantus his home medication since Levemir does not adequately treat his diabetes and getting back on her home dose of 60 units at night. He has not had a bowel movement since Tuesday but he does not want aggressive laxatives so Colace was ordered as he has agreed to take that. He is moving around very well with walker and denies any significant problems. I checked his last labs in the hospital creatinine is 1.8 today is 2.4 so we'll monitor that closely. Subjective/Events-last exam Pt reports doing well. Only complaint is noBM for a few days. Colace not helping. Does not want to do an enema. Objective Exam Vital Signs Vital Sign - Last 12Hours 04/02/17 05:00 Temp 97.4 Pulse 69 Resp 24 B/P (MAP) 134/73 Pulse Ox 94 O2 Delivery Room Air Capillary Refill : General Appearance: No Apparent Distress, WD/WN Respiratory: Lungs Clear, No Respiratory Distress Cardiovascular: Regular Rate, Rhythm, No Murmur Gastrointestinal: Normal Bowel Sounds, Non Tender, Soft Neurologic/Psychiatric: Alert, Oriented x3 Assessment/Plan Assessment and Plan Assess & Plan/Chief Complaint s/p lumbar surgery Diagnosis/Problems Diagnosis/Problems (1) Insulin dependent diabetes mellitus Assessment & Plan: BS improving on Lantus 60 units SSI A (2) Essential (primary) hypertension Status: Chronic Assessment & Plan: Well controlled on amlodipine, coreg, chlorthalidone (3) Hyperlipidemia Status: Chronic Assessment & Plan: C ontinue simvastatin (4) Constipation Status: Acute Assessment & Plan: Continue colace added senna s and lactulose (5) CKD (chronic kidney disease) Status: Chronic Assessment & Plan: at baseline follows with nephrology as outpatient Qualifiers: Qualified Codes: N18.4 - Chronic kidney disease, stage 4 (severe) (6) Normocytic anemia Status: Chronic Assessment & Plan: Hgb 10.5 Trend,mild MIKE DONALDSON MD Apr 04, 2017 5:19 pm
--- NOTE | 2017-04-04 17:21 | PM & R (SOAP) Progress Note ---
Subjective Time Seen by Provider: 17:00 Subjective/Events-last exam Patient was seen in his room this AM Patient has made himself Modified Independent in the room with a walker.Accucheks much improved since admission Patient reports pain in low back with radiation down left leg but much improved since Lumbar spine surgery Review of Systems Musculoskeletal: back pain, leg pain Objective Exam Last Set of Vital Signs Vital Signs Date Time Temp Pulse Resp B/P (MAP) Pulse Ox O2 Delivery O2 Flow Rate FiO2 04/04/17 05:19 98.1 63 20 139/64 94 Room Air Capillary Refill : I&O Intake and Output 04/05/17 00:00 Intake Total 980 ml Balance 980 ml Intake Oral 980 ml # Voids 4 General: Alert, Oriented X3, Cooperative, No Acute Distress HEENT: Atraumatic, PERRLA, EOMI, Mucous Memb Moist/[place] Neck: Supple, No JVD Lungs: Clear to Auscultation Heart: Regular Rate Abdomen: Normal Bowel Sounds, Soft, No Tenderness Extremities: No Edema Skin: Other (incision covered with dressing with small amt of dried blood present) Neuro: Other (Mild weakness BLES left >rt) Psych/Mental Status: Mental Status NL Other physical findings + kyphosis Results Lab Laboratory Tests 04/02/17 05:43: White Blood Count 6.2, Red Blood Count 3.62L, Hemoglobin 10.5L, Hematocrit 31L, Mean Corpuscular Volume 85, Mean Corpuscular Hemoglobin 29, Mean Corpuscular Hemoglobin Concent 34, Red Cell Distribution Width 14.5, Platelet Count 188, Mean Platelet Volume 11.6H, Neutrophils (%) (Auto) 84H, Lymphocytes (%) (Auto) 8L, Monocytes (%) (Auto) 8, Eosinophils (%) (Auto) 0, Basophils (%) (Auto) 0, Neutrophils # (Auto) 5.2, Lymphocytes # (Auto) 0.5L, Monocytes # (Auto) 0.5, Eosinophils # (Auto) 0.0, Basophils # (Auto) 0.0, Sodium Level 135, Potassium Level 4.3, Chloride Level 102, Carbon Dioxide Level 21, Anion Gap 12, Blood Urea Nitrogen 37H, Creatinine 2.42H, Estimat Glomerular Filtration Rate 27, BUN/ Creatinine Ratio 15, Glucose Level 371H, Hemoglobin A1c 6.5H, Calcium Level 10.2H, Total Bilirubin 0.5, Aspartate Amino Transf (AST/SGOT) 16, Alanine Aminotransferase (ALT/SGPT) 12, Alkaline Phosphatase 58, Total Protein 7.7, Albumin 3.6 04/02/17 05:45: Glucometer 357H 04/02/17 11:33: Glucometer 491*H 04/02/17 13:45: Glucometer 346H 04/02/17 16:25: Glucometer 258H 04/02/17 20:12: Glucometer 281H 04/03/17 05:55: Glucometer 284H 04/03/17 11:01: Glucometer 378H 04/03/17 16:14: Glucometer 287H 04/03/17 20:43: Glucometer 220H 04/04/17 05:05: Glucometer 163H 04/04/17 10:58: Glucometer 147H Assessment/Plan Assessment S/P L5-S1 laminectomy and L5-S1 discectomy for Lumbar Spinal stenosis With herniated disc L5-S1 with associated Back pain and Radiculopathy left leg s/p L3 -S1 fusion Kyphosis Type 1 DM HTN Plan Continue PT/OT/Pain Management Team Conference 04-06-17 Adjust Insulin as needed for better control of DM YOBANY RIOJAS MD Apr 04, 2017 17:21
[2017-04-04 19:32] VITALS: BP 142/68
[2017-04-04] MEDS: SIMvastatin 10 MG (ZOCOR) TAB PO SCH (19:35)
[2017-04-04] MEDS: GABAPENTIN 300 MG (NEURONTIN) CAP PO SCH (19:35)
[2017-04-04] MEDS: LANTUS SOLOSTAR SQ SCH (19:36)
[2017-04-04] MEDS: LACTULOSE SYRUP 10GM/15ML (ENULOSE) 30ML UDC PO SCH (19:37)
[2017-04-05] MEDS: inSUlin ASPART (NovoLOG) 1 UNIT/0.01 ML (CHARGE PER UNIT) SC SCH ×4 (05:22→20:39)
[2017-04-05] MEDS: CHLORTHALIDONE 25 MG (HYGROTON) TABLET PO SCH ×2 (05:59→17:11)
[2017-04-05 06:43] VITALS: BP 126/61
[2017-04-05] MEDS: LACTULOSE SYRUP 10GM/15ML (ENULOSE) 30ML UDC PO SCH ×2 (07:34→20:30)
[2017-04-05] MEDS: doxAzosin 4 MG (CARDURA) TAB PO SCH (07:34)
[2017-04-05] MEDS: VITAMIN D3 1,000 UNITS (CHOLECALCIFEROL) TABLET PO SCH (07:34)
[2017-04-05] MEDS: ASPIRIN E.C. 81 MG (ECOTRIN) TAB PO SCH (07:35)
[2017-04-05] MEDS: CARVEDILOL 12.5 MG (COREG) TABLET PO SCH ×2 (07:35→20:30)
[2017-04-05] MEDS: amLODIPine 5 MG (NORVASC) TAB PO SCH (07:35)
[2017-04-05] MEDS: DOCUSATE SODIUM 100 MG (COLACE) CAP PO SCH ×2 (07:35→20:30)
--- NOTE | 2017-04-05 08:59 | Physical Therapy Daily Note ---
PT Daily Note-Current Subjective Patient reports that he is "pretty sore" on this date compared to yesterday. He states he received a pain pill only about 15 minutes before PT entered the room. Patient received a back brace from PT to help with pain and posture correction. Pain Numeric Pain Scale: 7 Location: Left Location Body Site: Back Pain Description: Ache Comment: Pain down L LE radiating from the back. Appearance Patient appears in good health. Mental Status Patient Orientation: Normal For Age Transfers Functional [place] Measure 0=Not Assessed/NA 4=Minimal Assistance 1=Total Assistance 5=Supervision or Setup 2=Maximal Assistance 6=Modified [place] 3=Moderate Assistance 7=Complete IndependenceIRFPAI Quality Coding Scale 6 Independent with activity with or without an assistive device 5 Patient requires set up or clean up by helper. Patient completes activity by themselves 4 Supervision or touching assist (CGA). [place] provide cues , steadying assist 3 The helper provides less than half the effort to complete the activity 2 The helper provides more than half the effort to complete the activity 1 Dependent. The helper does all the effort to complete an activity 7 Patient refused to complete or attempt activity 9 The patient did not perform the activity before the current illness or injury 88 Not attempted due to Medical conditions or safety concerns Transfers (B, C, W/C) (FIM): 6 Scootin Sit to/from Stand: 6 Sit to Stand (QC): 6 Car Transfer (QC): 6 Patient performs sit to stand transfers under his own power. Patient demonstrates the ability to toilet himself. Weight Bearing Right Lower Extremity: Right Weight Bearing/Tolerated Left Lower Extremity: Left Weight Bearing/Tolerated Gait Training Does the Patient Walk?: Yes Gait (FIM): 6 Distance: >300' Walk 10 feet (QC): 6 Walk 50 ft with 2 Turns(QC): 6 Walk 150 ft (QC): 6 Gait Level of Assist: 6 Gait Persons Needed: 1 Gait Assistive Device: FWW Patient is being instructed to walk with a more upright posture, but he is able to ambulate safely by himself. Wheelchair Training Does the Pt Use a Wheelchair?: No Exercises Seated Therapy Exercises: Hip flexion (Piriformis Stretch 5 x 15" bilateral), Hamstring Curls (Hamstring Stretch 5 x 15" bilateral) Standin way Ex=Flex, Abd, Ext (all directions bilateral), Step-ups (4" box bilateral) Standing Reps: 15 NuStep Minutes: 15 NuStep Workload: 2 Assessment Current Status: Good Progress Patient is dealing with typical soreness on a post operative back. PT will adapt and progress plan of care with the patient as pain tolerates. PT Short Term Goals Short Term Goals Time Frame: Apr 09, 2017 Transfers (B,C,W/C) (FIM): 6 Gait (FIM): 6 Gait Distance Comment: 300' Gait Assistive Device: FWW Stairs (FIM): 2 # of Steps: 8 Stairs Level of Assist: 5 PT Detention Goals Detention Goals PT Radio Script Writer Goals Time Frame: Apr 23, 2017 Transfers (B,C,W/C) (FIM): 6 (met 04/04/17) Sit to Lying (QC): 6 Lying-Sitting on Side/Bed(QC): 6 Sit to Stand (QC): 6 Rollin (met 04/04/17) Roll Left to Right (QC): 6 Car Transfer (QC): 6 Gait (FIM): 6 (met 04/04/17) Distance: 300' Walk 10 feet (QC): 6 Walk 10ft-Uneven Surface(QC): 6 Walk 50ft with 2 Turns (QC): 6 Walk 150 ft (QC): 6 Gait Assistive Device: Cane Single Point Stairs (FIM): 5 (met 04/04/17) # of Steps: 12 (met 04/04/17) 1 Step (curb) (QC): 4 (met 04/04/17) 4 Steps (QC): 4 (met 04/04/17) 12 Steps (QC): 4 (met 04/04/17) Stairs Level Of Assist: 5 (met 04/04/17) Picking up an Object (QC): 4 PT Plan Problem List Problem List: Activity Tolerance, Functional Strength, Safety, Gait Treatment/Plan Treatment Plan: Continue Plan of Care Treatment Plan: Bed Mobility, Education, Functional Activity Cristal, Functional Strength, Group Therapy, Gait, Safety, Therapeutic Exercise, Transfers Treatment Duration: Apr 23, 2017 Frequency: At least 5 of 7 days/Wk (IRF) Estimated Hrs Per Day: 1.5 hours per day Patient and/or Family Agrees t: Yes Time/GCodes Time In: 750 Time Out: 850 Total Billed Treatment Time: 60 Total Billed Treatment 1 visit EX x 4 60 min JOHANN BHAKTA PT Apr 05, 2017 08:59
--- NOTE | 2017-04-05 11:55 | Occupational Ther Daily Note ---
OT Current Status-Daily Note Subjective Pt. does not report pain level, but does state that he is "very sore" today. States that he has already had his pain medication. Has already showered and dressed on his own with Mod I. Agrees to work with OT. Appearance Pt. up in chair. States that as long as he takes his time and "takes it easy" he will be fine. Mental Status/Objective Patient Orientation: Person, Place, Time, Situation Functional [place] Measure 0=Not Assessed/NA 4=Minimal Assistance 1=Total Assistance 5=Supervision or Setup 2=Maximal Assistance 6=Modified [place] 3=Moderate Assistance 7=Complete [place] ADL-Treatment Functional [place] Measure 0=Not Assessed/NA 4=Minimal Assistance 1=Total Assistance 5=Supervision or Setup 2=Maximal Assistance 6=Modified [place] 3=Moderate Assistance 7=Complete IndependenceIRFPAI Quality Coding Scale 6 Independent with activity with or without an assistive device 5 Patient requires set up or clean up by helper. Patient completes activity by themselves 4 Supervision or touching assist (CGA). [place] provide cues , steadying assist 3 The helper provides less than half the effort to complete the activity 2 The helper provides more than half the effort to complete the activity 1 Dependent. The helper does all the effort to complete an activity 7 Patient refused to complete or attempt activity 9 The patient did not perform the activity before the current illness or injury 88 Not attempted due to Medical conditions or safety concerns Transfers (B, C, W/C) (FIM): 6 (Pt. completes all transfers with Mod I using walker.) Pt. ambulated to therapy gym. Tolerated 15 minutes on armbike at min resistance to increase overall endurance. Pt. has a back brace now and pillow behind back in chair. States that this helps. States that he feels he may have done too much yesterday, and that he just needs to go easy today. Took multiple rest breaks. Completed arm activities with arm arc, nut/bolt activity , to work on overall endurance while up. Pt. states, "I can really feel that." Ambulated back to room with increased time needed. All needs met in room. Education OT Patient Education: Correct positioning, Exercise program, Modified ADL techniques, Progress toward Goal/Update tx plan, Purpose of tx/functional activities, Reviewed precautions, Rehab process, Transfer techniques Teaching Recipient: Patient Teaching Methods: Demonstration, Discussion Response to Teaching: Verbalize Understanding, Return Demonstration OT Short Term Goals Short Term Goals Transfers (B,C,W/C) (FIM): 6 1=Demonstrate adherence to instructed precautions during ADL tasks. 2=Patient will verbalize/demonstrate understanding of assistive devices/ modifications for ADL. 3=Patient will improve strength/tolerance for activity to enable patient to perform ADL's. OT Replanting Machine Operator Goals Replanting Machine Operator Goals Time Frame: Apr 16, 2017 Eating (FIM): 6 Eating (QC): 6 Groomin Oral Hygiene (QC): 6 Bathing(FIM): 6 Shower/Bathe Self (QC): 6 Upper Body Dressing(FIM): 6 Upper Body Dressing (QC): 6 Lower Body Dressing(FIM): 6 Lower Body Dressing (QC): 6 On/Off Footwear (QC): 6 Toileting(FIM): 6 Toileting Hygiene (QC): 6 Transfers (B,C,W/C) (FIM): 6 Toilet/Commode Transfer(FIM): 6 Toilet/Commode Transfer (QC): 6 Shower Transfer(FIM): 6 Additional Goals: 1-Demonstrate ADL Tasks, 2-Verbalize Understanding, 3- ImproveStrength/Cristal 1=Demonstrate adherence to instructed precautions during ADL tasks. 2=Patient will verbalize/demonstrate understanding of assistive devices/ modifications for ADL. 3=Patient will improve strength/tolerance for activity to enable patient to perform ADL's. OT Education/Plan Problem List/Assessment Assessment: Decreased Activ Tolerance, Decreased UE Strength Discharge Recommendations Plan/Recommendations: Continue POC Therapy D/C Recommendations: Home Independently Treatment Plan/Plan of Care Treatment,Training & Education: Yes Patient would benefit from OT for education, treatment and training to promote independence in ADL's, mobility, safety and/or upper extremity function for ADL' s. Plan of Care: ADL Retraining, Functional Mobility, UE Funct Exercise/Act Treatment Duration: Apr 16, 2017 Frequency: At least 5 of 7 days/Wk (IRF) Estimated Hrs Per Day: 1.5 hours per day Agreement: Yes Rehab Potential: Good Time/GCodes Start Time: 10:15 Stop Time: 11:15 Total Time Billed (hr/min): 60 Billed Treatment Time 1, EX x 30minutes, FA x 30minutes DEVAUGHN GUTIERREZ OT Apr 05, 2017 11:55
--- NOTE | 2017-04-05 14:03 | PM & R (SOAP) Progress Note ---
Subjective Time Seen by Provider: 11:40 Subjective/Events-last exam Patient was seen in his room this AM. 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 Review of Systems Musculoskeletal: back pain, leg pain Objective Exam Last Set of Vital Signs Vital Signs Date Time Temp Pulse Resp B/P (MAP) Pulse Ox O2 Delivery O2 Flow Rate FiO2 04/05/17 06:43 99.0 67 16 126/61 96 Room Air Capillary Refill : I&O Intake and Output 04/06/17 00:00 Intake Total 800 ml Balance 800 ml Intake Oral 800 ml # Voids 3 General: Alert, Oriented X3, Cooperative, No Acute Distress HEENT: Atraumatic, PERRLA, EOMI, Mucous Memb Moist/[place] Neck: Supple, No JVD Lungs: Clear to Auscultation Heart: Regular Rate Abdomen: Normal Bowel Sounds, Soft, No Tenderness Extremities: No Edema Skin: Other (incision covered with dressing with small amt of dried blood present) Neuro: Other (Mild weakness BLES left >rt) Psych/Mental Status: Mental Status NL Results Lab Laboratory Tests 04/02/17 16:25: Glucometer 258H 04/02/17 20:12: Glucometer 281H 04/03/17 05:55: Glucometer 284H 04/03/17 11:01: Glucometer 378H 04/03/17 16:14: Glucometer 287H 04/03/17 20:43: Glucometer 220H 04/04/17 05:05: Glucometer 163H 04/04/17 10:58: Glucometer 147H 04/04/17 16:11: Glucometer 224H 04/04/17 20:14: Glucometer 235H 04/05/17 05:14: Glucometer 143H 04/05/17 10:49: Glucometer 136H Assessment/Plan Assessment S/P L5-S1 laminectomy and bilateral foraminotomy for nerve root compression as well as Let L5-S1 diskectomy and foraminotomy with removal of posterior instrumentation hardware from prior 2 lumbar spine surgeries L3-S1 fusion with Biomet pedicle srews and local bone graft and Bone Marrow aspirate using Jamshidi needle Kyphosis DM Insulin dependent-patient reports good control at home with HGBA1C in low sixes/ HTN CKD Plan Continue PT/OT/Pain Management Team Conference tomorrow 04-06-17 Adjust Insulin as needed for better control of DM Discussed case with Nursing staff YOBANY RIOJAS MD Apr 05, 2017 14:03
--- NOTE | 2017-04-05 14:08 | Physical Therapy Daily Note ---
PT Daily Note-Current Subjective Patient reports that he is as sore as he was this a.m. and questions if his pain medications are working. He states that he may want to change medications. Pain Numeric Pain Scale: 5-Moderate Pain Location: Left Location Body Site: Back Pain Description: Ache Comment: Pain radiates down L LE from the back. Appearance Patient appears alert and healthy. Mental Status Patient Orientation: Normal For Age Transfers Functional [place] Measure 0=Not Assessed/NA 4=Minimal Assistance 1=Total Assistance 5=Supervision or Setup 2=Maximal Assistance 6=Modified [place] 3=Moderate Assistance 7=Complete IndependenceIRFPAI Quality Coding Scale 6 Independent with activity with or without an assistive device 5 Patient requires set up or clean up by helper. Patient completes activity by themselves 4 Supervision or touching assist (CGA). [place] provide cues , steadying assist 3 The helper provides less than half the effort to complete the activity 2 The helper provides more than half the effort to complete the activity 1 Dependent. The helper does all the effort to complete an activity 7 Patient refused to complete or attempt activity 9 The patient did not perform the activity before the current illness or injury 88 Not attempted due to Medical conditions or safety concerns Transfers (B, C, W/C) (FIM): 6 Supine to/from Sit: 6 Sit to/from Stand: 6 Sit to Lying (QC): 6 Sit to Stand (QC): 6 Patient can perform all transfers in a safe manner. Patient toilets himself. Weight Bearing Right Lower Extremity: Right Weight Bearing/Tolerated Left Lower Extremity: Left Weight Bearing/Tolerated Gait Training Does the Patient Walk?: Yes Gait (FIM): 6 Distance: 300' Walk 10 feet (QC): 6 Walk 50 ft with 2 Turns(QC): 6 Walk 150 ft (QC): 6 Gait Level of Assist: 6 Gait Persons Needed: 1 Gait Assistive Device: FWW Patient ambulates in a safe manner. Patient is instructed to walk with more upright posture to improve gait pattern. Exercises Supine Ex: Lower trunk rotation (bilateral), Knee to chest (stretching 5 x 15" ; alt. march x 15 each) Supine Reps: 15 Assessment Current Status: Good Progress Patient still reports pain with activity, but ambulates well. PT will increase therapeutic exercise as tolerated. PT Short Term Goals Short Term Goals Time Frame: Apr 09, 2017 Transfers (B,C,W/C) (FIM): 6 Gait (FIM): 6 Gait Distance Comment: 300' Gait Assistive Device: FWW Stairs (FIM): 2 # of Steps: 8 Stairs Level of Assist: 5 PT Bench Chemist Goals Jail Goals PT Jail Goals Time Frame: Apr 23, 2017 Transfers (B,C,W/C) (FIM): 6 (met 04/04/17) Sit to Lying (QC): 6 Lying-Sitting on Side/Bed(QC): 6 Sit to Stand (QC): 6 Rollin (met 04/04/17) Roll Left to Right (QC): 6 Car Transfer (QC): 6 Gait (FIM): 6 (met 04/04/17) Distance: 300' Walk 10 feet (QC): 6 Walk 10ft-Uneven Surface(QC): 6 Walk 50ft with 2 Turns (QC): 6 Walk 150 ft (QC): 6 Gait Assistive Device: Cane Single Point Stairs (FIM): 5 (met 04/04/17) # of Steps: 12 (met 04/04/17) 1 Step (curb) (QC): 4 (met 04/04/17) 4 Steps (QC): 4 (met 04/04/17) 12 Steps (QC): 4 (met 04/04/17) Stairs Level Of Assist: 5 (met 04/04/17) Picking up an Object (QC): 4 PT Plan Problem List Problem List: Activity Tolerance, Functional Strength, Balance, Gait Treatment/Plan Treatment Plan: Continue Plan of Care Treatment Plan: Bed Mobility, Education, Functional Activity Cristal, Functional Strength, Group Therapy, Gait, Safety, Therapeutic Exercise, Transfers Treatment Duration: Apr 23, 2017 Frequency: At least 5 of 7 days/Wk (IRF) Estimated Hrs Per Day: 1.5 hours per day Patient and/or Family Agrees t: Yes Time/GCodes Time In: 1300 Time Out: 1330 Total Billed Treatment Time: 30 Total Billed Treatment 1 visit EX x 2 30 min JOHANN BHAKTA PT Apr 05, 2017 14:08
--- NOTE | 2017-04-05 14:11 | Individualized Plan of Care ---
Individualized Plan of Care Rehab Nursing IPOC Order Admission Date Apr 01, 2017 at 20:01 Current Orders Orders Cho 60g/M 1snack (16-2000 Jatinder) (04/01/17 Dinner) Speech Therapy Rehab Orders (04/01/17 18:15) Physical Therapy Rehab Orders (04/01/17 18:15) Occupational Therapy Rehab Ord (04/01/17 18:15) Rehab Nursing Orders-Ipoc (04/01/17 18:15) Consult Physician (04/01/17 18:15) Oracle Specialist-Inpt Rehab (04/01/17 18:15) Accucheck Achs ACHS (04/01/17 18:15) Cbc With Automated Diff (04/02/17 05:00) Comprehensive Metabolic Panel (04/02/17 05:00) Hemoglobin A1c (04/02/17 05:00) Oxycodone Immediate Rel Tablet (Oxyir Ta (04/01/17 20:45) Insulin Determir (Per Unit) (Levemir (Pe (04/01/17 21:00) Insulin Aspart (Novolog) (Novolog (Charg (04/02/17 07:00) Chlorthalidone Tablet (Hygroton Tablet) (04/02/17 07:00) Cholecalciferol Capsule/Tablet (Vitamin (04/02/17 09:00) Amlodipine Tablet (Norvasc Tablet) (04/02/17 09:00) Aspirin Enteric Coated Tablet (Ecotrin T (04/02/17 09:00) Carvedilol Tablet (Coreg Tablet) (04/01/17 21:00) Colestipol Tablet (Colestid Tablet) (04/01/17 21:00) Cyclobenzaprine Tablet (Flexeril Tablet) (04/01/17 20:45) Diphenoxylate/Atropine Tablet (Lomotil T (04/01/17 20:45) Doxazosin Tablet (Cardura Tablet) (04/02/17 09:00) Furosemide Tablet (Lasix Tablet) (04/01/17 20:45) Gabapentin Capsule/Tablet (Neurontin Cap (04/01/17 21:00) Simvastatin Tablet (Zocor Tablet) (04/01/17 21:00) Pantoprazole Tablet (Protonix Tablet) (04/01/17 21:00) Tramadol Tablet (Ultram Tablet) (04/01/17 20:45) Acetaminophen Tablet/Caplet (Tylenol T (04/01/17 20:45) Ambulate TID (04/01/17 21:20) Sequential Compression Device 08,20 (04/01/17 21:20) Dvt/Vte Risk - Notifiy Physici (04/01/17 21:20) Insulin Determir (Per Unit) (Levemir (Pe (04/02/17 21:00) Insulin (Regular) Human (Humulin R (Per (04/02/17 11:00) Pharmacy Consult/Message (04/02/17 10:12) Insulin Aspart (Novolog) (Novolog (Charg (04/02/17 11:45) Insulin Aspart (Novolog) (Novolog (Charg (04/02/17 16:00) Insulin Aspart (Novolog) (Novolog (Charg (04/02/17 12:00) Consult Physician (04/02/17 11:56) Nursing Communication (Patient (04/02/17 11:56) Docusate Sodium Capsule (Colace Capsule) (04/02/17 13:30) Docusate Sodium Capsule (Colace Capsule) (04/02/17 13:30) Hydrocodone/Apap 10/325 Tablet (Lortab 1 (04/02/17 13:30) Patient Visit (04/02/17 ) Pt Eval Low Complexity (04/02/17 ) Gait Training, Ea 15 Min (04/02/17 ) Functional Activities, Ea 15 (04/02/17 ) Exercise Therap, Ea 15 Min (04/02/17 ) Patient's Own Med(Rx Use Only) (Patient' (04/02/17 21:00) Pharmacy Consult/Message (04/02/17 17:02) Oxycodone Immediate Rel Tablet (Oxyir Ta (04/02/17 17:30) Sequential Compression Device 08,20 (04/02/17 17:54) Ambulate TID (04/02/17 17:54) Insulin Aspart (Novolog) (Novolog (Charg (04/03/17 11:00) Admission-Acute Rehab Unit (04/04/17 11:18) Patient Visit (04/04/17 ) Speech Sound Lang Comp (04/04/17 ) Patient Visit (04/04/17 ) Functional Activities, Ea 15 (04/04/17 ) Gait Training, Ea 15 Min (04/04/17 ) Exercise Therap, Ea 15 Min (04/04/17 ) Patient Visit (04/04/17 ) Therapeutic, Group (04/04/17 ) Senna S Tablet (Senokot S Tablet) (04/04/17 17:15) Lactulose Oral Solution (Enulose Oral So (04/04/17 21:00) Rehab Nursing Orders: Bladder Program, Bladder Scan, Bladder Training, Bowel Program, Bowel Training, Diseage Management, Edu in Press Rel Techn, Hydration Management, Nutrition Management, Pain Management, Wound Management Other Nursing Orders: Adjust meds for chronic constipation as needed /Monitor for urinary retenti Intensity of Therapy to be met Patient to be seen: Min.3h per day/5 of 7d PT IPOC Problem List: Activity Tolerance, Functional Strength, Safety, Gait Treatment Plan: Continue Plan of Care Bed Mobility, Education, Functional Activity Cristal, Functional Strength, Group Therapy, Gait, Safety, Therapeutic Exercise, Transfers Treatment Duration: Apr 23, 2017 Frequency: At least 5 of 7 days/Wk (IRF) Estimated Hrs Per Day: 1.5 hours per day OT IPOC Problems: Decreased Activ Tolerance, Decreased UE Strength OT Treatment, Training and Edu: Yes Plan of Care: ADL Retraining, Functional Mobility, UE Funct Exercise/Act Treatment Duration: Apr 16, 2017 Frequency: At least 5 of 7 days/Wk (IRF) Estimated Hrs Per Day: 1.[address] IPOC Speech Therapy Treatment Plan: Discontinue ST (Evaluation, only.) Treatment Duration: Apr 05, 2017 Frequency: Modified Program (IRF) (Evaluation, only.) Estimated Hrs Per Day: Other (Evaluation, only.) Oracle Specialist/Case Mgmt Oracle Specialist/Case Managemen: Discharge Planning, Patient/Family Counseling Physician IPOC Medical Issues being managed closely and that require the 24 hour availability of a physician:Insulin Dependent DM,HTN CKD,Postop anemia Kyphosis Medical Issues: Bowel/Bladder Function, DVT Prophylaxis, Falls Precautions, Fluid/Electrolyte/Nutrition Balance, Infection Protection, Pain Management, Wound Care, Other (List) Brief Synthesis of Preadmission Screen, Post-Admission Evaluation, and Therapy Evaluations:72 yo male who lives alone who has had progressive low back pain with radiation into left leg who had revision surgery as outlined in Progress note at [facility] with DR Elizabeth who had elevated Accucheks postop who is referredto IRU for ongoing therapies prior to discharge home with [facility] Has a daughter in [place] and had used cane prior to surgery Did have falls as well which most likely exacerbated his Pain Original surgery done in [place] 2010.Endo and Nephro in [place] follw his DM and CKD.PCP follows his HTN Medical Prognosis: good Anticipated Length of Stay: 04-09-17 Rehab Goals Modified Independent for adls and mobility skills with good control of DM Anticipated discharge destinat: Home with [facility] YOBANY RIOJAS MD Apr 05, 2017 14:11
--- NOTE | 2017-04-05 14:50 | Occupational Ther Daily Note ---
OT Current Status-Daily Note Subjective No pain reported. However, does report that he is sore in buttocks region. Appearance Pt. in room. Agrees to work with OT. Mental Status/Objective Functional [place] Measure 0=Not Assessed/NA 4=Minimal Assistance 1=Total Assistance 5=Supervision or Setup 2=Maximal Assistance 6=Modified [place] 3=Moderate Assistance 7=Complete [place] ADL-Treatment Functional [place] Measure 0=Not Assessed/NA 4=Minimal Assistance 1=Total Assistance 5=Supervision or Setup 2=Maximal Assistance 6=Modified [place] 3=Moderate Assistance 7=Complete IndependenceIRFPAI Quality Coding Scale 6 Independent with activity with or without an assistive device 5 Patient requires set up or clean up by helper. Patient completes activity by themselves 4 Supervision or touching assist (CGA). [place] provide cues , steadying assist 3 The helper provides less than half the effort to complete the activity 2 The helper provides more than half the effort to complete the activity 1 Dependent. The helper does all the effort to complete an activity 7 Patient refused to complete or attempt activity 9 The patient did not perform the activity before the current illness or injury 88 Not attempted due to Medical conditions or safety concerns Transfers (B, C, W/C) (FIM): 6 (Pt. ambulated to therapy gym with walker with Mod I.) Other Treatment Pt. demonstrates full ability to transfer with Mod I using walker. Ambulated to therapy gym and completed therapy peg task with bilateral UE reaching to increase overall endurance. Pt. states, "I just need to take it easy today." States, "I can feel this in my back." OT applies pillow behind back in chair. Pt. takes several rest breaks. After task, ambulated back to room with Mod I. All needs met in room. Education OT Patient Education: Correct positioning, Exercise program, Modified ADL techniques, Progress toward Goal/Update tx plan, Purpose of tx/functional activities, Reviewed precautions, Rehab process, Transfer techniques Teaching Recipient: Patient Teaching Methods: Demonstration, Discussion Response to Teaching: Verbalize Understanding, Return Demonstration OT Short Term Goals Short Term Goals Transfers (B,C,W/C) (FIM): 6 1=Demonstrate adherence to instructed precautions during ADL tasks. 2=Patient will verbalize/demonstrate understanding of assistive devices/ modifications for ADL. 3=Patient will improve strength/tolerance for activity to enable patient to perform ADL's. OT Bronze Chaser Goals Bronze Chaser Goals Time Frame: Apr 16, 2017 Eating (FIM): 6 Eating (QC): 6 Groomin Oral Hygiene (QC): 6 Bathing(FIM): 6 Shower/Bathe Self (QC): 6 Upper Body Dressing(FIM): 6 Upper Body Dressing (QC): 6 Lower Body Dressing(FIM): 6 Lower Body Dressing (QC): 6 On/Off Footwear (QC): 6 Toileting(FIM): 6 Toileting Hygiene (QC): 6 Transfers (B,C,W/C) (FIM): 6 Toilet/Commode Transfer(FIM): 6 Toilet/Commode Transfer (QC): 6 Shower Transfer(FIM): 6 Additional Goals: 1-Demonstrate ADL Tasks, 2-Verbalize Understanding, 3- ImproveStrength/Cristal 1=Demonstrate adherence to instructed precautions during ADL tasks. 2=Patient will verbalize/demonstrate understanding of assistive devices/ modifications for ADL. 3=Patient will improve strength/tolerance for activity to enable patient to perform ADL's. OT Education/Plan Problem List/Assessment Assessment: Decreased Activ Tolerance, Decreased UE Strength Discharge Recommendations Plan/Recommendations: Continue POC Therapy D/C Recommendations: Home w/ Family Support Treatment Plan/Plan of Care Treatment,Training & Education: Yes Patient would benefit from OT for education, treatment and training to promote independence in ADL's, mobility, safety and/or upper extremity function for ADL' s. Plan of Care: ADL Retraining, Functional Mobility, UE Funct Exercise/Act Treatment Duration: Apr 16, 2017 Frequency: At least 5 of 7 days/Wk (IRF) Estimated Hrs Per Day: 1.5 hours per day Agreement: Yes Rehab Potential: Good Time/GCodes Start Time: 13:30 Stop Time: 14:00 Total Time Billed (hr/min): 30 Billed Treatment Time 1, FA x 2 DEVAUGHN GUTIERREZ OT Apr 05, 2017 14:50
[2017-04-05] MEDS: CYCLOBENZAPRINE 10 MG (FLEXERIL) TAB PO PRN (15:20)
[2017-04-05 18:00] VITALS: BP 119/68
[2017-04-05] MEDS: GABAPENTIN 300 MG (NEURONTIN) CAP PO SCH (20:29)
[2017-04-05] MEDS: SIMvastatin 10 MG (ZOCOR) TAB PO SCH (20:29)
[2017-04-05] MEDS: LANTUS SOLOSTAR SQ SCH (20:34)
[2017-04-06] MEDS: inSUlin ASPART (NovoLOG) 1 UNIT/0.01 ML (CHARGE PER UNIT) SC SCH ×4 (05:48→19:52)
[2017-04-06 06:00] VITALS: BP 108/67
[2017-04-06] MEDS: CHLORTHALIDONE 25 MG (HYGROTON) TABLET PO SCH ×2 (06:13→16:51)
[2017-04-06] MEDS: ACETAMINOPHEN 325 MG TABLET/CAPLET (TYLENOL) PO PRN ×2 (07:51→18:24)
[2017-04-06] MEDS: doxAzosin 4 MG (CARDURA) TAB PO SCH (07:52)
[2017-04-06] MEDS: DOCUSATE SODIUM 100 MG (COLACE) CAP PO SCH ×2 (07:52→19:51)
[2017-04-06] MEDS: VITAMIN D3 1,000 UNITS (CHOLECALCIFEROL) TABLET PO SCH (07:52)
[2017-04-06] MEDS: amLODIPine 5 MG (NORVASC) TAB PO SCH (07:53)
[2017-04-06] MEDS: CARVEDILOL 12.5 MG (COREG) TABLET PO SCH ×2 (07:53→19:52)
[2017-04-06] MEDS: LACTULOSE SYRUP 10GM/15ML (ENULOSE) 30ML UDC PO SCH ×2 (07:53→19:52)
[2017-04-06] MEDS: ASPIRIN E.C. 81 MG (ECOTRIN) TAB PO SCH (07:53)
--- NOTE | 2017-04-06 08:00 | PM & R (SOAP) Progress Note ---
Subjective Time Seen by Provider: 07:20 Subjective/Events-last exam Patient was seen in his rrom this AM Patient Modified Independent in his room with extra time Patients asks about changing dressing Discussed with RN They will follow -up Objective Exam Last Set of Vital Signs Vital Signs Date Time Temp Pulse Resp B/P (MAP) Pulse Ox O2 Delivery O2 Flow Rate FiO2 04/06/17 06:00 99.5 72 22 108/67 96 Room Air Capillary Refill : I&O Intake and Output 04/07/17 00:00 Intake Total 200 ml Balance 200 ml Intake Oral 200 ml # Voids 3 General: Alert, Oriented X3, Cooperative, No Acute Distress HEENT: Atraumatic, PERRLA, EOMI, Mucous Memb Moist/[place] Neck: Supple, No JVD Lungs: Clear to Auscultation Heart: Regular Rate Abdomen: Normal Bowel Sounds, Soft, No Tenderness Extremities: No Edema Skin: Other (incision covered with dressing with small amt of dried blood present) Neuro: Other (Mild weakness BLES left >rt) Psych/Mental Status: Mental Status NL Results Lab Laboratory Tests 04/03/17 11:01: Glucometer 378H 04/03/17 16:14: Glucometer 287H 04/03/17 20:43: Glucometer 220H 04/04/17 05:05: Glucometer 163H 04/04/17 10:58: Glucometer 147H 04/04/17 16:11: Glucometer 224H 04/04/17 20:14: Glucometer 235H 04/05/17 05:14: Glucometer 143H 04/05/17 10:49: Glucometer 136H 04/05/17 16:35: Glucometer 177H 04/05/17 20:34: Glucometer 178H 04/06/17 05:43: Glucometer 65L 04/06/17 06:30: Glucometer 105 Assessment/Plan Assessment S/P L5-S1 laminectomy and bilateral foraminotomy for nerve root compression as well as Let L5-S1 diskectomy and foraminotomy with removal of posterior instrumentation hardware from prior 2 lumbar spine surgeries L3-S1 fusion with Biomet pedicle srews and local bone graft and Bone Marrow aspirate using Jamshidi needle Kyphosis DM Insulin dependent-patient reports good control at home with HGBA1C in low sixes/ HTN CKD Plan Continue PT/OT/Pain Management Team Conference later today-See report for full functional update and POC and ELOS Probable discharge soon but patient has limited family support at home as his Daughter lives out of state in [place] Adjust Insulin as needed for better control of DM Discussed case with Nursing staff YOBANY RIOJAS MD Apr 06, 2017 08:00
--- NOTE | 2017-04-06 11:05 | Physical Therapy Daily Note ---
PT Daily Note-Current Subjective Pt sitting in chair in Therapy Commons with OT upon arrival. Pt agrees to PT. Pain Numeric Pain Scale: 9 Location Body Site: Back Pain Description: Ache, Tightness Mental Status Patient Orientation: Person, Place, Time, Situation Attachments: Other-See Comments (Back Brace) Transfers Functional [place] Measure 0=Not Assessed/NA 4=Minimal Assistance 1=Total Assistance 5=Supervision or Setup 2=Maximal Assistance 6=Modified [place] 3=Moderate Assistance 7=Complete IndependenceIRFPAI Quality Coding Scale 6 Independent with activity with or without an assistive device 5 Patient requires set up or clean up by helper. Patient completes activity by themselves 4 Supervision or touching assist (CGA). [place] provide cues , steadying assist 3 The helper provides less than half the effort to complete the activity 2 The helper provides more than half the effort to complete the activity 1 Dependent. The helper does all the effort to complete an activity 7 Patient refused to complete or attempt activity 9 The patient did not perform the activity before the current illness or injury 88 Not attempted due to Medical conditions or safety concerns Scootin Sit to/from Stand: 6 Sit to Stand (QC): 6 Weight Bearing Right Lower Extremity: Right Weight Bearing/Tolerated Left Lower Extremity: Left Weight Bearing/Tolerated Gait Training Does the Patient Walk?: Yes Distance (FIM): 3=150 ft Distance: 350' Walk 10 feet (QC): 6 Walk 50 ft with 2 Turns(QC): 6 Walk 150 ft (QC): 6 Gait Level of Assist: 6 Gait Persons Needed: 1 Gait Assistive Device: FWW Pt walks with normalized gait and is steady, no LOB. Pt occasionally will let FWW get too far in front of pt but will self-correct. Wheelchair Training Does the Pt Use a Wheelchair?: No Exercises Seated Therapy Exercises: Ankle pumps, Long arc quads, Hip flexion, Kicking activity Seated Reps: 20 Treatments Pt completes Seated Ex in chair before transferring to standing using FWW. Pt ambulates in hallway using FWW before sitting in chair for quick rest. Pt stands again for another ambulation in hallway before returning to room to rest in recliner. Pt and PT discuss pt wanting to discharge home on Tuesday and if pt had any concerns or needed anything before he leaves. Pt has all needs met at end of tx. Assessment Current Status: Good Progress Pt has improved and is Mod I with all transfers and ambulation. Pt is aware of when he needs to rest both standing and sitting and is able to complete commons tasks he is given. PT Short Term Goals Short Term Goals Time Frame: Apr 09, 2017 Transfers (B,C,W/C) (FIM): 6 Gait (FIM): 6 Gait Distance Comment: 300' Gait Assistive Device: FWW Stairs (FIM): 2 # of Steps: 8 Stairs Level of Assist: 5 PT Mcfp Goals Mcfp Goals PT Orange Picker Goals Time Frame: Apr 23, 2017 Transfers (B,C,W/C) (FIM): 6 (met 04/04/17) Sit to Lying (QC): 6 Lying-Sitting on Side/Bed(QC): 6 Sit to Stand (QC): 6 Rollin (met 04/04/17) Roll Left to Right (QC): 6 Car Transfer (QC): 6 Gait (FIM): 6 (met 04/04/17) Distance: 300' Walk 10 feet (QC): 6 Walk 10ft-Uneven Surface(QC): 6 Walk 50ft with 2 Turns (QC): 6 Walk 150 ft (QC): 6 Gait Assistive Device: Cane Single Point Stairs (FIM): 5 (met 04/04/17) # of Steps: 12 (met 04/04/17) 1 Step (curb) (QC): 4 (met 04/04/17) 4 Steps (QC): 4 (met 04/04/17) 12 Steps (QC): 4 (met 04/04/17) Stairs Level Of Assist: 5 (met 04/04/17) Picking up an Object (QC): 4 PT Plan Problem List Problem List: Activity Tolerance Treatment/Plan Treatment Plan: Continue Plan of Care Treatment Plan: Bed Mobility, Education, Functional Activity Cristal, Functional Strength, Group Therapy, Gait, Safety, Therapeutic Exercise, Transfers Treatment Duration: Apr 23, 2017 Frequency: At least 5 of 7 days/Wk (IRF) Estimated Hrs Per Day: 1.5 hours per day Patient and/or Family Agrees t: Yes Safety Risks/Education Patient Education: Gait Training, Transfer Techniques, Reviewed Precautions, Correct Positioning, Safety Issues Teaching Recipient: Patient Teaching Methods: Discussion Response to Teaching: Verbalize Understanding Time/GCodes Time In: 935 Time Out: 1035 Total Billed Treatment Time: 60 Total Billed Treatment visit, GT x2 (30m), EX (20m) & FA (10m) GIBRAN CROWE EXTRUSION DIE COORDINATOR Apr 06, 2017 11:05
--- NOTE | 2017-04-06 11:25 | Occupational Ther Daily Note ---
OT Current Status-Daily Note Subjective No pain reported. Appearance Pt. up in chair. Has already bathed and dressed today. Mental Status/Objective Patient Orientation: Person, Place, Time, Situation Functional [place] Measure 0=Not Assessed/NA 4=Minimal Assistance 1=Total Assistance 5=Supervision or Setup 2=Maximal Assistance 6=Modified [place] 3=Moderate Assistance 7=Complete [place] ADL-Treatment Functional [place] Measure 0=Not Assessed/NA 4=Minimal Assistance 1=Total Assistance 5=Supervision or Setup 2=Maximal Assistance 6=Modified [place] 3=Moderate Assistance 7=Complete IndependenceIRFPAI Quality Coding Scale 6 Independent with activity with or without an assistive device 5 Patient requires set up or clean up by helper. Patient completes activity by themselves 4 Supervision or touching assist (CGA). [place] provide cues , steadying assist 3 The helper provides less than half the effort to complete the activity 2 The helper provides more than half the effort to complete the activity 1 Dependent. The helper does all the effort to complete an activity 7 Patient refused to complete or attempt activity 9 The patient did not perform the activity before the current illness or injury 88 Not attempted due to Medical conditions or safety concerns Other Treatment Pt. has already fully showered self and dressed self with Mod I. Ambulated to therapy gym with Mod I. Completed armbike x 15minutes to increase overall strength and endurance with daily tasks. Pt. also completed arm arc back and forth for increased endurance, as he states that he fatigues easily and he can "feel" this in his back. Pt. takes several rest breaks and also several walks with OT in which he ambulates around rehab unit with walker. Pt. states that he feels "about ready" to discharge home. States he would like to go home on Tuesday, as his son could take him that day. All needs met back in room. Pt. states that he feels he is getting stronger, and just needed these days to increase his strength after surgery before discharge home. Education OT Patient Education: Correct positioning, Exercise program, Home exercise program, Modified ADL techniques, Progress toward Goal/Update tx plan, Purpose of tx/functional activities, Reviewed precautions, Rehab process, Transfer techniques, Use of adapted equipment Teaching Recipient: Patient Teaching Methods: Demonstration, Discussion Response to Teaching: Verbalize Understanding, Return Demonstration OT Short Term Goals Short Term Goals Transfers (B,C,W/C) (FIM): 6 1=Demonstrate adherence to instructed precautions during ADL tasks. 2=Patient will verbalize/demonstrate understanding of assistive devices/ modifications for ADL. 3=Patient will improve strength/tolerance for activity to enable patient to perform ADL's. OT Campaign Marketing Manager Goals Campaign Marketing Manager Goals Time Frame: Apr 16, 2017 Eating (FIM): 6 Eating (QC): 6 Groomin Oral Hygiene (QC): 6 Bathing(FIM): 6 Shower/Bathe Self (QC): 6 Upper Body Dressing(FIM): 6 Upper Body Dressing (QC): 6 Lower Body Dressing(FIM): 6 Lower Body Dressing (QC): 6 On/Off Footwear (QC): 6 Toileting(FIM): 6 Toileting Hygiene (QC): 6 Transfers (B,C,W/C) (FIM): 6 Toilet/Commode Transfer(FIM): 6 Toilet/Commode Transfer (QC): 6 Shower Transfer(FIM): 6 Additional Goals: 1-Demonstrate ADL Tasks, 2-Verbalize Understanding, 3- ImproveStrength/Cristal 1=Demonstrate adherence to instructed precautions during ADL tasks. 2=Patient will verbalize/demonstrate understanding of assistive devices/ modifications for ADL. 3=Patient will improve strength/tolerance for activity to enable patient to perform ADL's. OT Education/Plan Problem List/Assessment Assessment: Decreased Activ Tolerance, Decreased UE Strength, Dependent Transfers, Impaired Bed Mobility, Impaired Funct Balance, Impaired I ADL's, Impaired Self-Care Skills, Restricted Funct UE ROM Discharge Recommendations Plan/Recommendations: Continue POC Therapy D/C Recommendations: Home Independently Treatment Plan/Plan of Care Treatment,Training & Education: Yes Patient would benefit from OT for education, treatment and training to promote independence in ADL's, mobility, safety and/or upper extremity function for ADL' s. Plan of Care: ADL Retraining, Functional Mobility, UE Funct Exercise/Act Treatment Duration: Apr 16, 2017 Frequency: At least 5 of 7 days/Wk (IRF) Estimated Hrs Per Day: 1.5 hours per day Agreement: Yes Rehab Potential: Good Time/GCodes Start Time: 08:30 Stop Time: 09:30 Total Time Billed (hr/min): 60 Billed Treatment Time 1, EX x 30minutes, FA x 30minutes DEVAUGHN GUTIERREZ OT Apr 06, 2017 11:25
--- NOTE | 2017-04-06 14:54 | Therapy Group Daily Note ---
Therapy Daily Group Note Patient Education Topic Home Safety, Other List Below Exercises LE Seated Exercise, UE Exercise Other/Notes Pt attended OT/PT group. Pt ambulated to/from group session using FWW for balance and wearing lumbar brace. Pt introduced self to group for socialization. Pt had appropriate participation in group discussion. Education was provided regarding home safety and potential hazards in the home. Safe transfers and techniques were demonstrated during group session to increase understanding of safe mobility. Pt participated in seated UE/LE exercises to increase strength for functional tasks. Pt returned to room after group session. Start Time: 13:00 Stop Time: 14:15 Total Billed Treatment Time: 75 Total Billed Treatment 1, GRP(75minutes) RAEGAN MCCULLOUGH OT Apr 06, 2017 14:54
--- NOTE | 2017-04-06 15:54 | Progress Note-Hospitalist ---
Subjective HPI/CC On Admission Date Seen by Provider: Apr 06, 2017 Time Seen by Provider: 15:15 CC: Medical management in rehab following lumbar spine surgery HPI: This is a 72-year-old white male of primary care provider in [place], Dr. Henry Endocrinology, and Dr Petit Nephrology who presents to the inpatient rehabilitation for severe debility requiring short stay prior to discharge home with son who works most of the time. Blood sugar was 491 prompting urgent consultation with me of which I initiated sliding scale see and we her in the mist of changing back over to Lantus his home medication since Levemir does not adequately treat his diabetes and getting back on her home dose of 60 units at night. He has not had a bowel movement since Tuesday but he does not want aggressive laxatives so Colace was ordered as he has agreed to take that. He is moving around very well with walker and denies any significant problems. I checked his last labs in the hospital creatinine is 1.8 today is 2.4 so we'll monitor that closely. Subjective/Events-last exam Pt reports doing well. Did have low blood sugar this AM but was asymptomatic. He reports he didn't each much for dinner last night and is eating better than he does at home. Objective Exam Vital Signs Vital Sign - Last 12Hours 04/02/ 05:00 Temp 97.4 Pulse 69 Resp 24 B/P (MAP) 134/73 Pulse Ox 94 O2 Delivery Room Air Capillary Refill : General Appearance: No Apparent Distress, WD/WN Respiratory: Lungs Clear, No Respiratory Distress Cardiovascular: No Murmur Neurologic/Psychiatric: Alert, Oriented x3, Normal Mood/Affect Assessment/Plan Assessment and Plan Assess & Plan/Chief Complaint s/p lumbar surgery Diagnosis/Problems Diagnosis/Problems (1) Insulin dependent diabetes mellitus Assessment & Plan: Hypoglycemic this AM though asymptomatic Discussed bedtime snack Discussed with RN who will give him options for healthy high protein snack at bedtime SSI A (2) Essential (primary) hypertension Status: Chronic Assessment & Plan: Well controlled on amlodipine, coreg, chlorthalidone May be able to DC chlorthalidone if remain in low 100s (3) Hyperlipidemia Status: Chronic Assessment & Plan: Continue simvastatin (4) Constipation Status: Acute Assessment & Plan: Continue colace added senna s and lactulose (5) CKD (chronic kidney disease) Status: Chronic Assessment & Plan: at baseline follows with nephrology as outpatient Qualifiers: Qualified Codes: N18.4 - Chronic kidney disease, stage 4 (severe) (6) Normocytic anemia Status: Chronic Assessment & Plan: Hgb 10.5 Trend,mild MIKE DONALDSON MD Apr 06, 2017 3:54 pm
[2017-04-06] MEDS ORDERED: INSU100I10 SQ (15:59)
[2017-04-06 18:00] VITALS: BP 125/71
[2017-04-06] MEDS: GABAPENTIN 300 MG (NEURONTIN) CAP PO SCH (19:51)
[2017-04-06] MEDS: SIMvastatin 10 MG (ZOCOR) TAB PO SCH (19:51)
[2017-04-06] MEDS: LANTUS SOLOSTAR SQ SCH (19:53)
[2017-04-07 05:05] VITALS: BP 128/65
[2017-04-07] MEDS: inSUlin ASPART (NovoLOG) 1 UNIT/0.01 ML (CHARGE PER UNIT) SC SCH ×4 (06:55→20:32)
[2017-04-07] MEDS: CHLORTHALIDONE 25 MG (HYGROTON) TABLET PO SCH ×2 (06:55→17:10)
[2017-04-07] MEDS: VITAMIN D3 1,000 UNITS (CHOLECALCIFEROL) TABLET PO SCH (09:18)
[2017-04-07] MEDS: ASPIRIN E.C. 81 MG (ECOTRIN) TAB PO SCH (09:18)
[2017-04-07] MEDS: LACTULOSE SYRUP 10GM/15ML (ENULOSE) 30ML UDC PO SCH ×2 (09:18→20:18)
[2017-04-07] MEDS: DOCUSATE SODIUM 100 MG (COLACE) CAP PO SCH ×2 (09:18→20:17)
[2017-04-07] MEDS: CARVEDILOL 12.5 MG (COREG) TABLET PO SCH ×2 (09:18→20:18)
[2017-04-07] MEDS: doxAzosin 4 MG (CARDURA) TAB PO SCH (09:18)
[2017-04-07] MEDS: amLODIPine 5 MG (NORVASC) TAB PO SCH (09:21)
[2017-04-07] MEDS: CYCLOBENZAPRINE 10 MG (FLEXERIL) TAB PO PRN ×2 (09:27→20:18)
--- NOTE | 2017-04-07 12:27 | Physical Therapy Daily Note ---
PT Daily Note-Current Subjective Pt sitting in recliner in room upon arrival. Pt agrees to PT. Pt is discharging Tuesday. Pain Numeric Pain Scale: 8 Location Body Site: Back Pain Description: Ache, Tightness Mental Status Patient Orientation: Person, Place, Time, Situation Attachments: Other-See Comments (Back Brace) Transfers Functional [place] Measure 0=Not Assessed/NA 4=Minimal Assistance 1=Total Assistance 5=Supervision or Setup 2=Maximal Assistance 6=Modified [place] 3=Moderate Assistance 7=Complete IndependenceIRFPAI Quality Coding Scale 6 Independent with activity with or without an assistive device 5 Patient requires set up or clean up by helper. Patient completes activity by themselves 4 Supervision or touching assist (CGA). [place] provide cues , steadying assist 3 The helper provides less than half the effort to complete the activity 2 The helper provides more than half the effort to complete the activity 1 Dependent. The helper does all the effort to complete an activity 7 Patient refused to complete or attempt activity 9 The patient did not perform the activity before the current illness or injury 88 Not attempted due to Medical conditions or safety concerns Scootin Sit to/from Stand: 6 Sit to Stand (QC): 6 Weight Bearing Right Lower Extremity: Right Weight Bearing/Tolerated Left Lower Extremity: Left Weight Bearing/Tolerated Gait Training Does the Patient Walk?: Yes Distance (FIM): 3=150 ft Distance: 350' Walk 10 feet (QC): 6 Walk 50 ft with 2 Turns(QC): 6 Walk 150 ft (QC): 6 Gait Level of Assist: 6 Gait Persons Needed: 1 Gait Assistive Device: FWW Pt walks with normalized gait and will self-correct if FWW gets too far in front of him. Pt takes rest breaks as needed to continue walking. Wheelchair Training Does the Pt Use a Wheelchair?: No Stair Training Stair Training: Handrails/: 1 handrail, uses cane #of Steps: 12 1 Step (curb) (QC): 5 4 Steps (QC): 5 12 Steps (QC): 5 Stairs: Pattern: Step to Level of Assist: 5 Exercises Seated Therapy Exercises: Ankle pumps, Long arc quads, Hip flexion, Kicking activity Seated Reps: 20 Treatments Pt transfers from recliner to standing using FWW ar Mod I. Pt ambulates in hallway using FWW at Mod I. Pt completes Seated Ex in chair in Therapy Gym before ambulating back to room to rest in recliner at end of tx with all needs met. Assessment Current Status: Good Progress Pt walks with normalized gait Mod I safely. PT Short Term Goals Short Term Goals Time Frame: Apr 09, 2017 Transfers (B,C,W/C) (FIM): 6 Gait (FIM): 6 Gait Distance Comment: 300' Gait Assistive Device: FWW Stairs (FIM): 2 # of Steps: 8 Stairs Level of Assist: 5 PT Residential Goals Residential Goals PT Agronomy Internship Goals Time Frame: Apr 23, 2017 Transfers (B,C,W/C) (FIM): 6 (met 04/04/17) Sit to Lying (QC): 6 Lying-Sitting on Side/Bed(QC): 6 Sit to Stand (QC): 6 Rollin (met 04/04/17) Roll Left to Right (QC): 6 Car Transfer (QC): 6 Gait (FIM): 6 (met 04/04/17) Distance: 300' Walk 10 feet (QC): 6 Walk 10ft-Uneven Surface(QC): 6 Walk 50ft with 2 Turns (QC): 6 Walk 150 ft (QC): 6 Gait Assistive Device: Cane Single Point Stairs (FIM): 5 (met 04/04/17) # of Steps: 12 (met 04/04/17) 1 Step (curb) (QC): 4 (met 04/04/17) 4 Steps (QC): 4 (met 04/04/17) 12 Steps (QC): 4 (met 04/04/17) Stairs Level Of Assist: 5 (met 04/04/17) Picking up an Object (QC): 4 PT Plan Problem List Problem List: Activity Tolerance, Gait Treatment/Plan Treatment Plan: Continue Plan of Care Treatment Plan: Bed Mobility, Education, Functional Activity Cristal, Functional Strength, Group Therapy, Gait, Safety, Therapeutic Exercise, Transfers Treatment Duration: Apr 23, 2017 Frequency: At least 5 of 7 days/Wk (IRF) Estimated Hrs Per Day: 1.5 hours per day Patient and/or Family Agrees t: Yes Safety Risks/Education Patient Education: Gait Training, Correct Positioning, Reviewed Don/Doff Brace , Safety Issues Teaching Recipient: Patient Teaching Methods: Discussion Response to Teaching: Verbalize Understanding Time/GCodes Time In: 1000 Time Out: 1045 Total Billed Treatment Time: 45 Total Billed Treatment visit, GT x2 (30m) & EX (15m) GIBRAN CROWE MASTER [place] Apr 07, 2017 12:27
[2017-04-07] MEDS: oxyCODONE/APAP 10/325MG (PERCOCET 10) TABLET PO PRN ×2 (13:52→21:01)
--- NOTE | 2017-04-07 16:29 | Occupational Ther Daily Note ---
OT Current Status-Daily Note Subjective No pain reported. Appearance Pt. up in room. Has already showered. Agrees to work with OT. Mental Status/Objective Patient Orientation: Person, Place, Time, Situation Functional [place] Measure 0=Not Assessed/NA 4=Minimal Assistance 1=Total Assistance 5=Supervision or Setup 2=Maximal Assistance 6=Modified [place] 3=Moderate Assistance 7=Complete [place] ADL-Treatment Functional [place] Measure 0=Not Assessed/NA 4=Minimal Assistance 1=Total Assistance 5=Supervision or Setup 2=Maximal Assistance 6=Modified [place] 3=Moderate Assistance 7=Complete IndependenceIRFPAI Quality Coding Scale 6 Independent with activity with or without an assistive device 5 Patient requires set up or clean up by helper. Patient completes activity by themselves 4 Supervision or touching assist (CGA). [place] provide cues , steadying assist 3 The helper provides less than half the effort to complete the activity 2 The helper provides more than half the effort to complete the activity 1 Dependent. The helper does all the effort to complete an activity 7 Patient refused to complete or attempt activity 9 The patient did not perform the activity before the current illness or injury 88 Not attempted due to Medical conditions or safety concerns Other Treatment Pt. has already showered and dressed self independently in room. Agrees to to ambulate to therapy gym with walker. Does this with Mod I. Completed 8 minutes on armbike to increase overall endurance and UE strength. Completed at min resistance. Pt. had questions regarding surgery. OT pulled up surgical report and read to pt. Explained to him procedure as far as area of surgical site, instrumentation, etc.... Pt. states that this makes him feel better, as he knows now not to get into too big of a chavira to get better. Ambulated back to room. All needs met. Education OT Patient Education: Correct positioning, Exercise program, Modified ADL techniques, Progress toward Goal/Update tx plan, Purpose of tx/functional activities, Reviewed precautions, Rehab process, Transfer techniques Teaching Recipient: Patient Teaching Methods: Demonstration, Discussion Response to Teaching: Verbalize Understanding, Return Demonstration OT Short Term Goals Short Term Goals Transfers (B,C,W/C) (FIM): 6 1=Demonstrate adherence to instructed precautions during ADL tasks. 2=Patient will verbalize/demonstrate understanding of assistive devices/ modifications for ADL. 3=Patient will improve strength/tolerance for activity to enable patient to perform ADL's. OT Fci Goals Fci Goals Time Frame: Apr 16, 2017 Eating (FIM): 6 Eating (QC): 6 Groomin Oral Hygiene (QC): 6 Bathing(FIM): 6 Shower/Bathe Self (QC): 6 Upper Body Dressing(FIM): 6 Upper Body Dressing (QC): 6 Lower Body Dressing(FIM): 6 Lower Body Dressing (QC): 6 On/Off Footwear (QC): 6 Toileting(FIM): 6 Toileting Hygiene (QC): 6 Transfers (B,C,W/C) (FIM): 6 Toilet/Commode Transfer(FIM): 6 Toilet/Commode Transfer (QC): 6 Shower Transfer(FIM): 6 Additional Goals: 1-Demonstrate ADL Tasks, 2-Verbalize Understanding, 3- ImproveStrength/Cristal 1=Demonstrate adherence to instructed precautions during ADL tasks. 2=Patient will verbalize/demonstrate understanding of assistive devices/ modifications for ADL. 3=Patient will improve strength/tolerance for activity to enable patient to perform ADL's. OT Education/Plan Problem List/Assessment Assessment: Decreased Activ Tolerance Discharge Recommendations Plan/Recommendations: Continue POC Therapy D/C Recommendations: Home w/ Family Support Treatment Plan/Plan of Care Treatment,Training & Education: Yes Patient would benefit from OT for education, treatment and training to promote independence in ADL's, mobility, safety and/or upper extremity function for ADL' s. Plan of Care: ADL Retraining, Functional Mobility, UE Funct Exercise/Act Treatment Duration: Apr 16, 2017 Frequency: At least 5 of 7 days/Wk (IRF) Estimated Hrs Per Day: 1.5 hours per day Agreement: Yes Rehab Potential: Good Time/GCodes Start Time: 11:30 Stop Time: 12:00 Total Time Billed (hr/min): 30 Billed Treatment Time 1, EX x 2 DEVAUGHN GUTIERREZ OT Apr 07, 2017 16:28
--- NOTE | 2017-04-07 16:32 | Occupational Ther Daily Note ---
OT Current Status-Daily Note Subjective No pain reported. Appearance Pt. up in chair. Agrees to work with OT. Mental Status/Objective Patient Orientation: Person, Place Functional [place] Measure 0=Not Assessed/NA 4=Minimal Assistance 1=Total Assistance 5=Supervision or Setup 2=Maximal Assistance 6=Modified [place] 3=Moderate Assistance 7=Complete [place] ADL-Treatment Functional [place] Measure 0=Not Assessed/NA 4=Minimal Assistance 1=Total Assistance 5=Supervision or Setup 2=Maximal Assistance 6=Modified [place] 3=Moderate Assistance 7=Complete IndependenceIRFPAI Quality Coding Scale 6 Independent with activity with or without an assistive device 5 Patient requires set up or clean up by helper. Patient completes activity by themselves 4 Supervision or touching assist (CGA). [place] provide cues , steadying assist 3 The helper provides less than half the effort to complete the activity 2 The helper provides more than half the effort to complete the activity 1 Dependent. The helper does all the effort to complete an activity 7 Patient refused to complete or attempt activity 9 The patient did not perform the activity before the current illness or injury 88 Not attempted due to Medical conditions or safety concerns Other Treatment Pt. ambulated with walker throughout hospital. Required several rest breaks. However, practiced getting on elevator using walker, going over thresholds, holding doors, and ambulating outside on concrete. Pt. states that the outside air feels good, and it has been awhile since he has been outside. After sufficient rest break, went back inside and to rehab gym. Completed 15 minutes on armbike at min resistance to increase overall strength and independence. Ambulated back to room with no needs. Education OT Patient Education: Correct positioning, Exercise program, Progress toward Goal/Update tx plan, Purpose of tx/functional activities, Reviewed precautions, Rehab process, Transfer techniques Teaching Recipient: Patient Teaching Methods: Demonstration, Discussion Response to Teaching: Verbalize Understanding, Return Demonstration OT Short Term Goals Short Term Goals Transfers (B,C,W/C) (FIM): 6 1=Demonstrate adherence to instructed precautions during ADL tasks. 2=Patient will verbalize/demonstrate understanding of assistive devices/ modifications for ADL. 3=Patient will improve strength/tolerance for activity to enable patient to perform ADL's. OT Traffic Assistant Goals Traffic Assistant Goals Time Frame: Apr 16, 2017 Eating (FIM): 6 Eating (QC): 6 Groomin Oral Hygiene (QC): 6 Bathing(FIM): 6 Shower/Bathe Self (QC): 6 Upper Body Dressing(FIM): 6 Upper Body Dressing (QC): 6 Lower Body Dressing(FIM): 6 Lower Body Dressing (QC): 6 On/Off Footwear (QC): 6 Toileting(FIM): 6 Toileting Hygiene (QC): 6 Transfers (B,C,W/C) (FIM): 6 Toilet/Commode Transfer(FIM): 6 Toilet/Commode Transfer (QC): 6 Shower Transfer(FIM): 6 Additional Goals: 1-Demonstrate ADL Tasks, 2-Verbalize Understanding, 3- ImproveStrength/Cristal 1=Demonstrate adherence to instructed precautions during ADL tasks. 2=Patient will verbalize/demonstrate understanding of assistive devices/ modifications for ADL. 3=Patient will improve strength/tolerance for activity to enable patient to perform ADL's. OT Education/Plan Problem List/Assessment Assessment: Decreased Activ Tolerance Discharge Recommendations Plan/Recommendations: Continue POC Therapy D/C Recommendations: Home w/ Family Support Treatment Plan/Plan of Care Treatment,Training & Education: Yes Patient would benefit from OT for education, treatment and training to promote independence in ADL's, mobility, safety and/or upper extremity function for ADL' s. Plan of Care: ADL Retraining, Functional Mobility, UE Funct Exercise/Act Treatment Duration: Apr 16, 2017 Frequency: At least 5 of 7 days/Wk (IRF) Estimated Hrs Per Day: 1.5 hours per day Agreement: Yes Rehab Potential: Good Time/GCodes Start Time: 13:00 Stop Time: 14:00 Total Time Billed (hr/min): 60 Billed Treatment Time 1, FA x 45minutes, EX x 15minutes DEVAUGHN GUTIERREZ OT Apr 07, 2017 16:31
[2017-04-07 17:11] VITALS: BP 118/63
--- NOTE | 2017-04-07 17:41 | Physical Therapy Daily Note ---
PT Daily Note-Current Subjective Pt sitting in recliner upon arrival. Pt agrees to PT. Pain Numeric Pain Scale: 8 Location Body Site: Back Pain Description: Ache, Tightness Mental Status Patient Orientation: Person, Place, Time, Situation Attachments: Other-See Comments (Back Brace) Transfers Functional [place] Measure 0=Not Assessed/NA 4=Minimal Assistance 1=Total Assistance 5=Supervision or Setup 2=Maximal Assistance 6=Modified [place] 3=Moderate Assistance 7=Complete IndependenceIRFPAI Quality Coding Scale 6 Independent with activity with or without an assistive device 5 Patient requires set up or clean up by helper. Patient completes activity by themselves 4 Supervision or touching assist (CGA). [place] provide cues , steadying assist 3 The helper provides less than half the effort to complete the activity 2 The helper provides more than half the effort to complete the activity 1 Dependent. The helper does all the effort to complete an activity 7 Patient refused to complete or attempt activity 9 The patient did not perform the activity before the current illness or injury 88 Not attempted due to Medical conditions or safety concerns Scootin Sit to/from Stand: 6 Sit to Stand (QC): 6 Weight Bearing Right Lower Extremity: Right Weight Bearing/Tolerated Left Lower Extremity: Left Weight Bearing/Tolerated Gait Training Does the Patient Walk?: Yes Distance (FIM): 3=150 ft Distance: 250' Walk 10 feet (QC): 6 Walk 50 ft with 2 Turns(QC): 6 Walk 150 ft (QC): 6 Gait Level of Assist: 6 Gait Persons Needed: 1 Gait Assistive Device: FWW Pt walks with normalized gait. Wheelchair Training Does the Pt Use a Wheelchair?: No Exercises NuStep Minutes: 13 NuStep Workload: 6 Treatments Pt transfers from recliner to standing using FWW at Mod I. Pt ambulates in hallway using FWW at Mod I. Pt completes 13m on NuStep at Workload 6 before transferring to standing and ambulating back to room to rest in recliner at end of tx. Pt has all needs met. Assessment Current Status: Good Progress Pt continues to demonstrate safe and independent transfers and ambulation. PT Short Term Goals Short Term Goals Time Frame: Apr 09, 2017 Transfers (B,C,W/C) (FIM): 6 Gait (FIM): 6 Gait Distance Comment: 300' Gait Assistive Device: FWW Stairs (FIM): 2 # of Steps: 8 Stairs Level of Assist: 5 PT Correction Goals Supervisor Contact And Service Clerks Goals PT Correction Goals Time Frame: Apr 23, 2017 Transfers (B,C,W/C) (FIM): 6 (met 04/04/17) Sit to Lying (QC): 6 Lying-Sitting on Side/Bed(QC): 6 Sit to Stand (QC): 6 Rollin (met 04/04/17) Roll Left to Right (QC): 6 Car Transfer (QC): 6 Gait (FIM): 6 (met 04/04/17) Distance: 300' Walk 10 feet (QC): 6 Walk 10ft-Uneven Surface(QC): 6 Walk 50ft with 2 Turns (QC): 6 Walk 150 ft (QC): 6 Gait Assistive Device: Cane Single Point Stairs (FIM): 5 (met 04/04/17) # of Steps: 12 (met 04/04/17) 1 Step (curb) (QC): 4 (met 04/04/17) 4 Steps (QC): 4 (met 04/04/17) 12 Steps (QC): 4 (met 04/04/17) Stairs Level Of Assist: 5 (met 04/04/17) Picking up an Object (QC): 4 PT Plan Problem List Problem List: Activity Tolerance Treatment/Plan Treatment Plan: Continue Plan of Care Treatment Plan: Bed Mobility, Education, Functional Activity Cristal, Functional Strength, Group Therapy, Gait, Safety, Therapeutic Exercise, Transfers Treatment Duration: Apr 23, 2017 Frequency: At least 5 of 7 days/Wk (IRF) Estimated Hrs Per Day: 1.5 hours per day Patient and/or Family Agrees t: Yes Safety Risks/Education Patient Education: Gait Training, Correct Positioning, Safety Issues Teaching Recipient: Patient Teaching Methods: Discussion Response to Teaching: Verbalize Understanding Time/GCodes Time In: 1400 Time Out: 1445 Total Billed Treatment Time: 45 Total Billed Treatment visit, GT x2 (30m) & EX (15m) GIBRAN CROWE WAIST FITTER Apr 07, 2017 17:41
--- NOTE | 2017-04-07 20:05 | PM & R (SOAP) Progress Note ---
Subjective Time Seen by Provider: 19:30 Subjective/Events-last exam Patient was seen in his room this evening Patient Modified Independent for transfers Patient requests wilfrido in pain med as having poor pain controlearlier today Doing better with generic percocet.Patient indicates that he will have his son to help him at home and discharge is planned for Tuesday04-09-17 Objective Exam Last Set of Vital Signs Vital Signs Date Time Temp Pulse Resp B/P (MAP) Pulse Ox O2 Delivery O2 Flow Rate FiO2 04/07/17 17:11 99.4 64 16 118/63 94 Room Air Capillary Refill : I&O Intake and Output 04/08/17 00:00 Intake Total 2050 ml Balance 2050 ml Intake Oral 2050 ml # Voids 9 # Bowel Movements 1 General: Alert, Oriented X3, Cooperative, No Acute Distress HEENT: Atraumatic, PERRLA, EOMI, Mucous Memb Moist/[place] Neck: Supple, No JVD Lungs: Clear to Auscultation Heart: Regular Rate Abdomen: Normal Bowel Sounds, Soft, No Tenderness Extremities: No Edema Skin: Other (incision covered with dressing with small amt of dried blood present) Neuro: Other (Mild weakness BLES left >rt) Psych/Mental Status: Mental Status NL Results Lab Laboratory Tests 04/04/17 20:14: Glucometer 235H 04/05/17 05:14: Glucometer 143H 04/05/17 10:49: Glucometer 136H 04/05/17 16:35: Glucometer 177H 04/05/17 20:34: Glucometer 178H 04/06/17 05:43: Glucometer 65L 04/06/17 06:30: Glucometer 105 04/06/17 10:45: Glucometer 92 04/06/17 16:57: Glucometer 167H 04/06/17 19:46: Glucometer 135H 04/07/17 04:56: Glucometer 161H 04/07/17 11:43: Glucometer 123H 04/07/17 17:06: Glucometer 145H Assessment/Plan Assessment S/P L5-S1 laminectomy and bilateral foraminotomy for nerve root compression as well as Let L5-S1 diskectomy and foraminotomy with removal of posterior instrumentation hardware from prior 2 lumbar spine surgeries L3-S1 fusion with Biomet pedicle srews and local bone graft and Bone Marrow aspirate using Jamshidi needle Kyphosis DM Insulin dependent-patient reports good control at home with HGBA1C in low sixes/ HTN CKD Plan Continue PT/OT/Pain Management Team Conference hed yesterday-See report for full functional update and POC and ELOS Adjust Insulin as needed for better control of DM Discussed case with Nursing staff Discharge set foe Tuesday04-09-17 to home with [facility] and his son YOBANY RIOJAS MD Apr 07, 2017 20:05
[2017-04-07] MEDS: LANTUS SOLOSTAR SQ SCH (20:19)
[2017-04-07] MEDS: GABAPENTIN 300 MG (NEURONTIN) CAP PO SCH (20:32)
[2017-04-07] MEDS: SIMvastatin 10 MG (ZOCOR) TAB PO SCH (20:32)
[2017-04-08 05:00] VITALS: BP 119/61
[2017-04-08] MEDS: inSUlin ASPART (NovoLOG) 1 UNIT/0.01 ML (CHARGE PER UNIT) SC SCH ×4 (05:46→20:21)
[2017-04-08] MEDS: oxyCODONE/APAP 10/325MG (PERCOCET 10) TABLET PO PRN ×3 (06:47→20:29)
[2017-04-08] MEDS: CHLORTHALIDONE 25 MG (HYGROTON) TABLET PO SCH ×2 (06:47→16:46)
[2017-04-08] MEDS: ASPIRIN E.C. 81 MG (ECOTRIN) TAB PO SCH (08:24)
[2017-04-08] MEDS: LACTULOSE SYRUP 10GM/15ML (ENULOSE) 30ML UDC PO SCH ×2 (08:24→20:20)
[2017-04-08] MEDS: CARVEDILOL 12.5 MG (COREG) TABLET PO SCH ×2 (08:24→20:20)
[2017-04-08] MEDS: VITAMIN D3 1,000 UNITS (CHOLECALCIFEROL) TABLET PO SCH (08:24)
[2017-04-08] MEDS: doxAzosin 4 MG (CARDURA) TAB PO SCH (08:24)
[2017-04-08] MEDS: amLODIPine 5 MG (NORVASC) TAB PO SCH (08:24)
[2017-04-08] MEDS: DOCUSATE SODIUM 100 MG (COLACE) CAP PO SCH ×2 (08:25→20:20)
--- NOTE | 2017-04-08 09:00 | PM & R (SOAP) Progress Note ---
Subjective Time Seen by Provider: 07:50 Subjective/Events-last exam Patient was seen in his room this AM Pain control much better with current regimen Patient Modified Independent in room with extra time Patients son will assist him at home along with HHC with discharge planning for tomorrow Objective Exam Last Set of Vital Signs Vital Signs Date Time Temp Pulse Resp B/P (MAP) Pulse Ox O2 Delivery O2 Flow Rate FiO2 04/08/17 05:00 98.9 66 20 119/61 94 Room Air Capillary Refill : I&O Intake and Output 04/09/17 00:00 Intake Total 250 ml Balance 250 ml Intake Oral 250 ml # Voids 4 General: Alert, Oriented X3, Cooperative, No Acute Distress HEENT: Atraumatic, PERRLA, EOMI, Mucous Memb Moist/[place] Neck: Supple, No JVD Lungs: Clear to Auscultation Heart: Regular Rate Abdomen: Normal Bowel Sounds, Soft, No Tenderness Extremities: No Edema Skin: Other (incision covered with dressing with small amt of dried blood present) Neuro: Other (Mild weakness BLES left >rt) Psych/Mental Status: Mental Status NL Results Lab Laboratory Tests 04/05/17 10:49: Glucometer 136H 04/05/17 16:35: Glucometer 177H 04/05/17 20:34: Glucometer 178H 04/06/17 05:43: Glucometer 65L 04/06/17 06:30: Glucometer 105 04/06/17 10:45: Glucometer 92 04/06/17 16:57: Glucometer 167H 04/06/17 19:46: Glucometer 135H 04/07/17 04:56: Glucometer 161H 04/07/17 11:43: Glucometer 123H 04/07/17 17:06: Glucometer 145H 04/07/17 20:12: Glucometer 172H 04/08/17 05:43: Glucometer 123H Assessment/Plan Assessment S/P L5-S1 laminectomy and bilateral foraminotomy for nerve root compression as well as Let L5-S1 diskectomy and foraminotomy with removal of posterior instrumentation hardware from prior 2 lumbar spine surgeries L3-S1 fusion with Biomet pedicle srews and local bone graft and Bone Marrow aspirate using Jamshidi needle Kyphosis DM Insulin dependent-patient reports good control at home with HGBA1C in low sixes/ HTN CKD Plan Continue PT/OT/Pain Management Team Conference held 04-06-17-See report for full functional update and POC and ELOS Adjust Insulin as needed for better control of DM Discussed case with Nursing staff Discharge remains set for tomorrow Tuesday04-09-17 to home with [facility] and his son See orders. YOBANY RIOJAS MD Apr 08, 2017 09:00
--- NOTE | 2017-04-08 12:10 | Physical Therapy Daily Note ---
PT Daily Note-Current Subjective Pain in back and left leg "sciatica" at 8/10. States he feels comfortable being up ad jim Pain Numeric Pain Scale: 8 Location: Left Location Body Site: Thigh Pain Description: Ache Mental Status Patient Orientation: Normal For Age Attachments: Other-See Comments (back brace) needed min to mod assist to mary alice brace Transfers Functional [place] Measure 0=Not Assessed/NA 4=Minimal Assistance 1=Total Assistance 5=Supervision or Setup 2=Maximal Assistance 6=Modified [place] 3=Moderate Assistance 7=Complete IndependenceIRFPAI Quality Coding Scale 6 Independent with activity with or without an assistive device 5 Patient requires set up or clean up by helper. Patient completes activity by themselves 4 Supervision or touching assist (CGA). [place] provide cues , steadying assist 3 The helper provides less than half the effort to complete the activity 2 The helper provides more than half the effort to complete the activity 1 Dependent. The helper does all the effort to complete an activity 7 Patient refused to complete or attempt activity 9 The patient did not perform the activity before the current illness or injury 88 Not attempted due to Medical conditions or safety concerns Transfers (B, C, W/C) (FIM): 6 Scootin Rollin Roll Left to Right (QC): 6 Supine to/from Sit: 6 Sit to/from Stand: 6 Sit to Lying (QC): 6 Sit to Stand (QC): 6 Weight Bearing Right Lower Extremity: Right Weight Bearing/Tolerated Left Lower Extremity: Left Weight Bearing/Tolerated Gait Training Does the Patient Walk?: Yes Gait (FIM): 6 Distance (FIM): 3=150 ft (200x2) Walk 10 feet (QC): 6 Walk 50 ft with 2 Turns(QC): 6 Walk 150 ft (QC): 6 Walking 10ft/uneven surface-QC: 6 Gait Level of Assist: 6 Gait Persons Needed: 0 Gait Assistive Device: FWW very flexed and kyphotic, heavy wt bearing on FWW Stair Training Stair Training: Handrails/: 2 handrails Stairs (FIM): 6 #of Steps: 12 1 Step (curb) (QC): 6 4 Steps (QC): 6 12 Steps (QC): 6 Stairs: Pattern: Reciprocal Exercises Supine Ex: Ankle pumps, Quad Set, Rolling, Glut sets, Heel Slides, Short Arc Quads, Scooting, Hip abd/add Supine Reps: 15 NuStep Minutes: 10 NuStep Workload: 5 Assessment Current Status: Excellent Progress PT Short Term Goals Short Term Goals Time Frame: Apr 09, 2017 Transfers (B,C,W/C) (FIM): 6 Gait (FIM): 6 Gait Distance Comment: 300' Gait Assistive Device: FWW Stairs (FIM): 2 # of Steps: 8 Stairs Level of Assist: 5 PT Emergency Services Director Goals Intermediate Goals PT Intermediate Goals Time Frame: Apr 23, 2017 Transfers (B,C,W/C) (FIM): 6 (met 04/04/17) Sit to Lying (QC): 6 Lying-Sitting on Side/Bed(QC): 6 Sit to Stand (QC): 6 Rollin (met 04/04/17) Roll Left to Right (QC): 6 Car Transfer (QC): 6 Gait (FIM): 6 (met 04/04/17) Distance: 300' Walk 10 feet (QC): 6 Walk 10ft-Uneven Surface(QC): 6 Walk 50ft with 2 Turns (QC): 6 Walk 150 ft (QC): 6 Gait Assistive Device: Cane Single Point Stairs (FIM): 5 (met 04/04/17) # of Steps: 12 (met 04/04/17) 1 Step (curb) (QC): 4 (met 04/04/17) 4 Steps (QC): 4 (met 04/04/17) 12 Steps (QC): 4 (met 04/04/17) Stairs Level Of Assist: 5 (met 04/04/17) Picking up an Object (QC): 4 PT Plan Treatment/Plan Treatment Plan: Continue Plan of Care Treatment Plan: Bed Mobility, Education, Functional Activity Cristal, Functional Strength, Group Therapy, Gait, Safety, Therapeutic Exercise, Transfers Treatment Duration: Apr 23, 2017 Frequency: At least 5 of 7 days/Wk (IRF) Estimated Hrs Per Day: 1.5 hours per day Patient and/or Family Agrees t: Yes Safety Risks/Education Patient Education: Gait Training, Transfer Techniques, Steps, Issued Written HEP, Correct Positioning, Reviewed Don/Doff Brace, Safety Issues Teaching Recipient: Patient Teaching Methods: Demonstration, Discussion Response to Teaching: Verbalize Understanding, Return Demonstration, Reinforcement Needed Time/GCodes Time In: 1000 Time Out: 1100 Total Billed Treatment Time: 60 Total Billed Treatment 1,FA30m,EX15m,GT15m G Codes Necessary: BENNY Van MINIATURE MODEL MAKER Apr 08, 2017 12:10
--- NOTE | 2017-04-08 12:47 | Occupational Ther Daily Note ---
OT Current Status-Daily Note Subjective Pt sitting in chair, agrees to treatment. Pt reports 8.5/10 back pain. Mental Status/Objective Functional [place] Measure 0=Not Assessed/NA 4=Minimal Assistance 1=Total Assistance 5=Supervision or Setup 2=Maximal Assistance 6=Modified [place] 3=Moderate Assistance 7=Complete [place] ADL-Treatment Pt has already bathed, dressed, and groomed this morning. Pt states he completed all of these tasks without assistance. Functional [place] Measure 0=Not Assessed/NA 4=Minimal Assistance 1=Total Assistance 5=Supervision or Setup 2=Maximal Assistance 6=Modified [place] 3=Moderate Assistance 7=Complete IndependenceIRFPAI Quality Coding Scale 6 Independent with activity with or without an assistive device 5 Patient requires set up or clean up by helper. Patient completes activity by themselves 4 Supervision or touching assist (CGA). [place] provide cues , steadying assist 3 The helper provides less than half the effort to complete the activity 2 The helper provides more than half the effort to complete the activity 1 Dependent. The helper does all the effort to complete an activity 7 Patient refused to complete or attempt activity 9 The patient did not perform the activity before the current illness or injury 88 Not attempted due to Medical conditions or safety concerns Eating (FIM): 7 (Pt reports managing containers, cutting food, and managing containers without assistance.) Eating (QC): 6 Grooming (FIM): 7 (Pt reports completing all grooming tasks without assistance this morning) Oral Hygiene (QC): 6 Bathing (FIM): 6 (Pt reports bathing self this morning without assistance) Shower/Bathe Self (QC): 6 Upper Body (FIM): 6 (Pt reports dressing self without assistance this morning) Upper Body Dressing (QC): 6 Lower Body Dressing (FIM): 6 (Pt reports dressing self without assistance) Lower Body Dressing (QC): 6 On/Off Footwear (QC): 6 Toileting (FIM): 6 (Pt states he is getting up to restroom without assistance) Toileting Hygiene (QC): 6 Toilet/Commode Transfer (FIM): 6 (Pt reports getting up to restroom without assistance) Toilet Transfer (QC): 6 Shower Transfer(FIM): 6 (Pt reports transferring to shower without assistance this morning.) Other Treatment Pt sit to stand with modified independence. Gait to therapy gym with FWW, no LOB noted. Pt completed arm bike x15 minutes to increase overall strength and activity tolerance needed for functional task completion. Pt completed task with minimal resistance and slow pace. Two brief rest breaks taken during task. Arm arc activity completed with bilateral UE to increase endurance. Pt requires occasional rest breaks during activity, but tolerates well. Pt completed tabletop peg activity with bilateral UE to promote UE activity tolerance, strength, and coordination. Pt ambulated in hallway with FWW, takes occasional standing rest breaks. No LOB noted. Pt in room, sitting in chair with needs met after session. OT Short Term Goals Short Term Goals Transfers (B,C,W/C) (FIM): 6 1=Demonstrate adherence to instructed precautions during ADL tasks. 2=Patient will verbalize/demonstrate understanding of assistive devices/ modifications for ADL. 3=Patient will improve strength/tolerance for activity to enable patient to perform ADL's. OT Nitric Acid Plant Operator Goals Nitric Acid Plant Operator Goals Time Frame: Apr 16, 2017 Eating (FIM): 6 (met 04/08/17) Eating (QC): 6 (6-MET) Groomin (met 04/08/17) Oral Hygiene (QC): 6 (6-MET) Bathing(FIM): 6 (met 04/08/17) Shower/Bathe Self (QC): 6 (6-MET) Upper Body Dressing(FIM): 6 (met 04/08/17) Upper Body Dressing (QC): 6 (6-MET) Lower Body Dressing(FIM): 6 (met 04/08/17) Lower Body Dressing (QC): 6 (6-MET) On/Off Footwear (QC): 6 (6-MET) Toileting(FIM): 6 (met 04/08/17) Toileting Hygiene (QC): 6 (6-MET) Transfers (B,C,W/C) (FIM): 6 Toilet/Commode Transfer(FIM): 6 (met 04/08/17) Toilet/Commode Transfer (QC): 6 (6-MET) Shower Transfer(FIM): 6 (met 04/08/17) Additional Goals: 1-Demonstrate ADL Tasks, 2-Verbalize Understanding, 3- ImproveStrength/Cristal 1=Demonstrate adherence to instructed precautions during ADL tasks. 2=Patient will verbalize/demonstrate understanding of assistive devices/ modifications for ADL. 3=Patient will improve strength/tolerance for activity to enable patient to perform ADL's. OT Education/Plan Discharge Recommendations Plan/Recommendations: Continue POC Treatment Plan/Plan of Care Patient would benefit from OT for education, treatment and training to promote independence in ADL's, mobility, safety and/or upper extremity function for ADL' s. Plan of Care: ADL Retraining, Functional Mobility, UE Funct Exercise/Act Treatment Duration: Apr 16, 2017 Frequency: At least 5 of 7 days/Wk (IRF) Estimated Hrs Per Day: 1.5 hours per day Agreement: Yes Rehab Potential: Good Time/GCodes Start Time: 09:00 Stop Time: 10:00 Total Time Billed (hr/min): 60 Billed Treatment Time 1, visit, EXx2(30minutes), FAx2(30minutes) RAEGAN MCCULLOUGH OT Apr 08, 2017 12:47
--- NOTE | 2017-04-08 14:41 | Occupational Ther Daily Note ---
OT Current Status-Daily Note Subjective Pt sitting in chair, agrees to treatment. Pt reports 8/10 back pain. Mental Status/Objective Functional [place] Measure 0=Not Assessed/NA 4=Minimal Assistance 1=Total Assistance 5=Supervision or Setup 2=Maximal Assistance 6=Modified [place] 3=Moderate Assistance 7=Complete [place] ADL-Treatment Functional [place] Measure 0=Not Assessed/NA 4=Minimal Assistance 1=Total Assistance 5=Supervision or Setup 2=Maximal Assistance 6=Modified [place] 3=Moderate Assistance 7=Complete IndependenceIRFPAI Quality Coding Scale 6 Independent with activity with or without an assistive device 5 Patient requires set up or clean up by helper. Patient completes activity by themselves 4 Supervision or touching assist (CGA). [place] provide cues , steadying assist 3 The helper provides less than half the effort to complete the activity 2 The helper provides more than half the effort to complete the activity 1 Dependent. The helper does all the effort to complete an activity 7 Patient refused to complete or attempt activity 9 The patient did not perform the activity before the current illness or injury 88 Not attempted due to Medical conditions or safety concerns Other Treatment Sit to stand with modified independence. Pt donned lumbar brace without assistance. Gait to therapy gym with modified independence. Pt completed fine motor task with nuts and bolts to increase coordination and UE activity tolerance. Pt completed putty activity with bilateral hands to increase strength and manipulation skills. Pt able to remove small beads from putty with increased time. Pt ambulated through hallway with FWW, no LOB noted. PT takes occasional standing rest breaks to correct posture and rest. Pt returned to room , sitting in chair with needs met after session. Plan is for pt to d/c home tomorrow. Pt has no questions or concerns regarding ADLs or home safety. OT Short Term Goals Short Term Goals Transfers (B,C,W/C) (FIM): 6 1=Demonstrate adherence to instructed precautions during ADL tasks. 2=Patient will verbalize/demonstrate understanding of assistive devices/ modifications for ADL. 3=Patient will improve strength/tolerance for activity to enable patient to perform ADL's. OT Snf Goals Snf Goals Time Frame: Apr 16, 2017 Eating (FIM): 6 (met 04/08/17) Eating (QC): 6 (6-MET) Groomin (met 04/08/17) Oral Hygiene (QC): 6 (6-MET) Bathing(FIM): 6 (met 04/08/17) Shower/Bathe Self (QC): 6 (6-MET) Upper Body Dressing(FIM): 6 (met 04/08/17) Upper Body Dressing (QC): 6 (6-MET) Lower Body Dressing(FIM): 6 (met 04/08/17) Lower Body Dressing (QC): 6 (6-MET) On/Off Footwear (QC): 6 (6-MET) Toileting(FIM): 6 (met 04/08/17) Toileting Hygiene (QC): 6 (6-MET) Transfers (B,C,W/C) (FIM): 6 Toilet/Commode Transfer(FIM): 6 (met 04/08/17) Toilet/Commode Transfer (QC): 6 (6-MET) Shower Transfer(FIM): 6 (met 04/08/17) Additional Goals: 1-Demonstrate ADL Tasks, 2-Verbalize Understanding, 3- ImproveStrength/Cristal 1=Demonstrate adherence to instructed precautions during ADL tasks. 2=Patient will verbalize/demonstrate understanding of assistive devices/ modifications for ADL. 3=Patient will improve strength/tolerance for activity to enable patient to perform ADL's. OT Education/Plan Discharge Recommendations Plan/Recommendations: Continue POC Treatment Plan/Plan of Care Patient would benefit from OT for education, treatment and training to promote independence in ADL's, mobility, safety and/or upper extremity function for ADL' s. Plan of Care: ADL Retraining, Functional Mobility, UE Funct Exercise/Act Treatment Duration: Apr 16, 2017 Frequency: At least 5 of 7 days/Wk (IRF) Estimated Hrs Per Day: 1.5 hours per day Agreement: Yes Rehab Potential: Good Time/GCodes Start Time: 13:00 Stop Time: 13:30 Total Time Billed (hr/min): 30 Billed Treatment Time 1 visit, FAx2(30minutes) RAEGAN MCCULLOUGH OT Apr 08, 2017 14:41
--- NOTE | 2017-04-08 14:43 | Physical Therapy Daily Note ---
PT Daily Note-Current Subjective Expresses many times that he has had great care here and is very pleased with his care. Pain Numeric Pain Scale: 8 Location: Left Location Body Site: Thigh Pain Description: Throbbing Mental Status Patient Orientation: Normal For Age Transfers Functional [place] Measure 0=Not Assessed/NA 4=Minimal Assistance 1=Total Assistance 5=Supervision or Setup 2=Maximal Assistance 6=Modified [place] 3=Moderate Assistance 7=Complete IndependenceIRFPAI Quality Coding Scale 6 Independent with activity with or without an assistive device 5 Patient requires set up or clean up by helper. Patient completes activity by themselves 4 Supervision or touching assist (CGA). [place] provide cues , steadying assist 3 The helper provides less than half the effort to complete the activity 2 The helper provides more than half the effort to complete the activity 1 Dependent. The helper does all the effort to complete an activity 7 Patient refused to complete or attempt activity 9 The patient did not perform the activity before the current illness or injury 88 Not attempted due to Medical conditions or safety concerns all Mod I Weight Bearing Right Lower Extremity: Right Weight Bearing/Tolerated Left Lower Extremity: Left Weight Bearing/Tolerated Gait Training Gait Assistive Device: FWW up ad jim no LOB Exercises Seated Therapy Exercises: Ankle pumps, Sit to stand, Long arc quads, Hip flexion Seated Reps: 12 Standing: Hip Abduction, Hamstring curls, Heel/toe raises, Marching, Mini squats, Sit to Stand Standing Reps: 15 Treatments donns brace indep Assessment Current Status: Good Progress PT Short Term Goals Short Term Goals Time Frame: Apr 09, 2017 Transfers (B,C,W/C) (FIM): 6 Gait (FIM): 6 Gait Distance Comment: 300' Gait Assistive Device: FWW Stairs (FIM): 2 # of Steps: 8 Stairs Level of Assist: 5 PT Senior Living Goals Auctioneer Tobacco Goals PT Senior Living Goals Time Frame: Apr 23, 2017 Transfers (B,C,W/C) (FIM): 6 (met 04/04/17) Sit to Lying (QC): 6 Lying-Sitting on Side/Bed(QC): 6 Sit to Stand (QC): 6 Rollin Roll Left to Right (QC): 6 Car Transfer (QC): 6 Gait (FIM): 6 (met 04/04/17) Distance: 300' Walk 10 feet (QC): 6 Walk 10ft-Uneven Surface(QC): 6 Walk 50ft with 2 Turns (QC): 6 Walk 150 ft (QC): 6 Gait Assistive Device: Cane Single Point Stairs (FIM): 5 (met 04/04/17) # of Steps: 12 (met 04/04/17) 1 Step (curb) (QC): 4 (met 04/04/17) 4 Steps (QC): 4 (met 04/04/17) 12 Steps (QC): 4 (met 04/04/17) Stairs Level Of Assist: 5 (met 04/04/17) Picking up an Object (QC): 4 PT Plan Treatment/Plan Treatment Plan: Continue Plan of Care Treatment Plan: Bed Mobility, Education, Functional Activity Cristal, Functional Strength, Group Therapy, Gait, Safety, Therapeutic Exercise, Transfers Treatment Duration: Apr 23, 2017 Frequency: At least 5 of 7 days/Wk (IRF) Estimated Hrs Per Day: 1.5 hours per day Patient and/or Family Agrees t: Yes Safety Risks/Education Patient Education: Gait Training, Issued Written HEP, Correct Positioning, Reviewed Don/Doff Brace, Safety Issues Teaching Recipient: Patient Teaching Methods: Demonstration, Discussion Response to Teaching: Verbalize Understanding, Return Demonstration, Reinforcement Needed Time/GCodes Time In: 1400 Time Out: 1430 Total Billed Treatment Time: 30 Total Billed Treatment 1,EX30m G Codes Necessary: BENNY Van FILTERS ASSEMBLER Apr 08, 2017 14:43
[2017-04-08 18:02] VITALS: BP 117/59
[2017-04-08] MEDS: GABAPENTIN 300 MG (NEURONTIN) CAP PO SCH (20:20)
[2017-04-08] MEDS: SIMvastatin 10 MG (ZOCOR) TAB PO SCH (20:20)
[2017-04-08] MEDS: LANTUS SOLOSTAR SQ SCH (20:21)
[2017-04-09 04:56] VITALS: BP 127/60
[2017-04-09] MEDS: inSUlin ASPART (NovoLOG) 1 UNIT/0.01 ML (CHARGE PER UNIT) SC SCH (06:07)
[2017-04-09] MEDS: CHLORTHALIDONE 25 MG (HYGROTON) TABLET PO SCH (06:07)
[2017-04-09] MEDS: oxyCODONE/APAP 10/325MG (PERCOCET 10) TABLET PO PRN (06:49)
[2017-04-09] MEDS: CARVEDILOL 12.5 MG (COREG) TABLET PO SCH (08:09)
[2017-04-09] MEDS: ASPIRIN E.C. 81 MG (ECOTRIN) TAB PO SCH (08:09)
[2017-04-09] MEDS: amLODIPine 5 MG (NORVASC) TAB PO SCH (08:09)
[2017-04-09] MEDS: LACTULOSE SYRUP 10GM/15ML (ENULOSE) 30ML UDC PO SCH (08:09)
[2017-04-09] MEDS: DOCUSATE SODIUM 100 MG (COLACE) CAP PO SCH (08:09)
[2017-04-09] MEDS: VITAMIN D3 1,000 UNITS (CHOLECALCIFEROL) TABLET PO SCH (08:09)
[2017-04-09] MEDS: doxAzosin 4 MG (CARDURA) TAB PO SCH (08:09)
[2017-04-09 12:50] VITALS: BP 127/60
--- NOTE | 2017-04-11 10:33 | Therapy Team Discharge Summary ---
Therapy Discharge Summary Discharge Recommendations Date of Discharge Apr 09, 2017 at 18:19 Therapy D/C Recommendations: Home w/ Family Support Physical Therapy This patient has been seen by skilled PT post back surgery for functional strength and mobility training to progress him to return home as he was before at a mod indep level. Upon admit, he was SBA with gait and transfers and min assist up/down 4 steps. At discharge, he was mod indep with gait, transfers and 12 steps. He has made excellent progress and is ready to discharge home. Pt has met all PT goals set at evaluation. Will DC PT at this time. Occupational Therapy Decreased Activ Tolerance PT Longterm Goals Longterm Goals PT Tank Truck Operator Goals Time Frame: Apr 23, 2017 Transfers (B,C,W/C) (FIM): 6 (met 04/04/17) Roll Left to Right (QC): 6 (met) Sit to Lying (QC): 6 (met) Lying-Sitting on Side/Bed(QC): 6 (met) Sit to Stand (QC): 6 (met) Car Transfer (QC): 6 Gait (FIM): 6 (met 04/04/17) Distance: 300' Walk 10 feet (QC): 6 (met) Walk 10ft-Uneven Surface(QC): 6 (met) Walk 50ft with 2 Turns (QC): 6 (mt) Walk 150 ft (QC): 6 (met) Gait Assistive Device: Cane Single Point Stairs (FIM): 5 (met 04/04/17) # of Steps: 12 (met 04/04/17) 1 Step (curb) (QC): 4 (met 04/04/17) 4 Steps (QC): 4 (met 04/04/17) 12 Steps (QC): 4 (met 04/04/17) Stairs Level Of Assist: 5 (met 04/04/17) Picking up an Object (QC): 4 OT Tank Truck Operator Goals Longterm Goals Time Frame: Apr 16, 2017 Eating (FIM): 6 (met 04/08/17) Eating (QC): 6 (6-MET) Oral Hygiene (QC): 6 (6-MET) Grooming(FIM): 6 (met 04/08/17) Bathing(FIM): 6 (met 04/08/17) Shower/Bathe Self (QC): 6 (6-MET) Upper Body Dressing(FIM): 6 (met 04/08/17) Upper Body Dressing (QC): 6 (6-MET) Lower Body Dressing(FIM): 6 (met 04/08/17) Lower Body Dressing (QC): 6 (6-MET) On/Off Footwear (QC): 6 (6-MET) Toileting(FIM): 6 (met 04/08/17) Toileting Hygiene (QC): 6 (6-MET) Transfers (B,C,W/C) (FIM): 6 Toilet/Commode Transfer(FIM): 6 (met 04/08/17) Toilet/Commode Transfer (QC): 6 (6-MET) Shower Transfer(FIM): 6 (met 04/08/17) Additional Goals: 1-Demonstrate ADL Tasks, 2-Verbalize Understanding, 3- ImproveStrength/Cristal 1=Demonstrate adherence to instructed precautions during ADL tasks. 2=Patient will verbalize/demonstrate understanding of assistive devices/ modifications for ADL. 3=Patient will improve strength/tolerance for activity to enable patient to perform ADL's. THOMAS SINGLETON PT Apr 11, 2017 10:33
--- NOTE | 2017-04-11 11:46 | Therapy Team Discharge Summary ---
Therapy Discharge Summary Discharge Recommendations Date of Discharge Apr 09, 2017 at 18:19 Therapy D/C Recommendations: Home w/ Family Support Occupational Therapy Pt. has been seen by occupational therapy to increase overall independence with daily skills. Pt. has met all goals. Pt. is able to bathe/dress with Mod I using walker and shower seat. Pt. would benefit from walker basket. Pt. to discharge home with son assist as needed. Otherwise, no further OT required at this time. No further equipment needs as well. Decreased Activ Tolerance PT Fdc Goals Derrick Operator Goals PT Fdc Goals Time Frame: Apr 23, 2017 Transfers (B,C,W/C) (FIM): 6 (met 04/04/17) Roll Left to Right (QC): 6 (met) Sit to Lying (QC): 6 (met) Lying-Sitting on Side/Bed(QC): 6 (met) Sit to Stand (QC): 6 (met) Car Transfer (QC): 6 Gait (FIM): 6 (met 04/04/17) Distance: 300' Walk 10 feet (QC): 6 (met) Walk 10ft-Uneven Surface(QC): 6 (met) Walk 50ft with 2 Turns (QC): 6 (mt) Walk 150 ft (QC): 6 (met) Gait Assistive Device: Cane Single Point Stairs (FIM): 5 (met 04/04/17) # of Steps: 12 (met 04/04/17) 1 Step (curb) (QC): 4 (met 04/04/17) 4 Steps (QC): 4 (met 04/04/17) 12 Steps (QC): 4 (met 04/04/17) Stairs Level Of Assist: 5 (met 04/04/17) Picking up an Object (QC): 4 OT Fdc Goals Derrick Operator Goals Time Frame: Apr 16, 2017 Eating (FIM): 6 (met 04/08/17) Eating (QC): 6 (6-MET) Oral Hygiene (QC): 6 (6-MET) Grooming(FIM): 6 (met 04/08/17) Bathing(FIM): 6 (met 04/08/17) Shower/Bathe Self (QC): 6 (6-MET) Upper Body Dressing(FIM): 6 (met 04/08/17) Upper Body Dressing (QC): 6 (6-MET) Lower Body Dressing(FIM): 6 (met 04/08/17) Lower Body Dressing (QC): 6 (6-MET) On/Off Footwear (QC): 6 (6-MET) Toileting(FIM): 6 (met 04/08/17) Toileting Hygiene (QC): 6 (6-MET) Transfers (B,C,W/C) (FIM): 6 Toilet/Commode Transfer(FIM): 6 (met 04/08/17) Toilet/Commode Transfer (QC): 6 (6-MET) Shower Transfer(FIM): 6 (met 04/08/17) Additional Goals: 1-Demonstrate ADL Tasks, 2-Verbalize Understanding, 3- ImproveStrength/Cristal 1=Demonstrate adherence to instructed precautions during ADL tasks. 2=Patient will verbalize/demonstrate understanding of assistive devices/ modifications for ADL. 3=Patient will improve strength/tolerance for activity to enable patient to perform ADL's. DEVAUGHN GUTIERREZ OT Apr 11, 2017 11:46
== END 2017-04-09 18:19 | disposition home or self-care (01) | DRG 561 ==
PROVIDERS: ADMIT Physical Medicine & Rehabilitation; ATTEND Physical Medicine & Rehabilitation
DX: Z47.89 Encounter for other orthopedic aftercare (principal); Z98.1 Arthrodesis status; M40.209 Unspecified kyphosis, site unspecified; E10.65 Type 1 diabetes mellitus with hyperglycemia; E10.22 Type 1 diabetes mellitus with diabetic chronic kidney disease; I12.9 Hypertensive chronic kidney disease with stage 1 through stage 4 chronic kidney disease, or unspecified chronic kidney disease; N18.9 Chronic kidney disease, unspecified; G47.30 Sleep apnea, unspecified; E78.5 Hyperlipidemia, unspecified; K21.9 Gastro-esophageal reflux disease without esophagitis; K59.00 Constipation, unspecified; D64.9 Anemia, unspecified; Z79.4 Long term (current) use of insulin
CPT/HCPCS: 36415; 80053; 82962; 83036; 85025

== ENCOUNTER 2018-01-11 15:00 | Inpatient (IN) | payer MEDICARE, OTHER ==
[~2018-01-11] VITALS: Ht 165.1 cm; Wt 90.7 kg
[~2018-01-11 15:00] MED LIST: ACET325T49 PO; AMLO10TA2 PO; ASPI-983 PO; CARV25TA PO; CHLO25TA22 PO; CHOL20003 PO; COLE1TAB PO; CYCL10TA9 PO; DIPH1TAB25 PO; DOXA2TAB PO; FURO20TA4 PO; GABA-486 PO; GABA-488 PO; HYDR-3820 PO; INSU100I10 SQ; INSU100I14 SQ; LOVA10TA PO; OMEP20CA12 PO; OXYC15TA79 PO; SODI650T PO; TRAM50TA2 PO
[2018-01-11] MEDS ORDERED: NS IV 1000 ML 1,000 ML IV SCH ×2 (15:37→19:52)
[2018-01-11] MEDS ORDERED: ACETAMINOPHEN 500 MG TAB (TYLENOL) PO PRN (15:45)
[2018-01-11] MEDS ORDERED: ONDANSETRON 4 MG/2 ML (SDV) Z0FRAN IVP PRN (15:45)
--- NOTE | 2018-01-11 17:11 | ED Addendum ---
Addendum Physician Addendum Progress 17:09 Patient had lumbar spine surgery per Dr Alcantara on Tuesday and was planning on arriving at [facility] but has suffered acute delirium with acute on chronic renal failure of creat 2.5 and required placement of catheter so he was admitted to 4th floor and workup will ensue and placed on gentle IVF. General Stated Complaint: ACUTE RENAL FAILURE DELERIUM History of Present Illness Date Seen by Provider: Jan 12, 2018 Time Seen by Provider: 10:00 Physical Exam Vital Signs Capillary Refill : Height, Weight, BMI Height: 5'10.00" Weight: 185lbs. 0.0oz. 83.861175xl; 27.1 BMI Method: General Appearance: No Apparent Distress, WD/WN, Chronically ill Respiratory: Lungs Clear, Normal Breath Sounds Cardiovascular: Regular Rate, Rhythm, No Edema Neurologic/Psychiatric: Disoriented Constitutional: other (not seen) Progress/Results/Core Measures Results/Orders My Orders Orders - GARRICK MCKEON DO Admission Order(Inpt,Obs,Sdc) (01/11/18 15:37) Iv/Invasive Line Insertion .on IV start (01/11/18 15:37) General/Regular (01/11/18 Dinner) Activity (01/11/18 ) Catheter(Urinary) Insert & Ass 03,15 (01/11/18 15:37) Cbc With Automated Diff (01/12/18 06:00) Comprehensive Metabolic Panel (01/12/18 06:00) Ns Iv 1000 Ml (Sodium Chloride 0.9%) (01/11/18 15:37) Sequential Compression Device 08,20 (01/11/18 15:37) Intake & Output 06,14,22 (01/11/18 15:37) Mat Initiate Protocol (01/11/18 15:37) Vital Signs: Every 4 Hours (Or (01/11/18 15:37) Cbc With Automated Diff (01/11/18 15:37) Comprehensive Metabolic Panel (01/11/18 15:37) Telemetry (01/11/18 15:37) Consult Cardiology (01/11/18 15:37) Vte Contraindication (01/11/18 15:37) Urinalysis (01/11/18 15:37) Haloperidol Injection (Haldol Injectio (01/11/18 18:00) Blood Culture (01/11/18 15:37) Arterial Blood Gas (01/11/18 15:37) Troponin I (01/11/18 15:37) BNP (01/11/18 15:37) Ekg Tracing (01/11/18 15:37) Fentanyl Injection (Sublimaze Injection (01/11/18 15:45) Acetaminophen Tablet (Tylenol Tablet) (01/11/18 15:45) Ondansetron Injection (Zofran Injectio (01/11/18 15:45) Docusate Sodium Capsule (Colace Capsule) (01/11/18 21:00) Polyethylene Glycol Powder Pkt (Miralax (01/11/18 21:00) Chest 1 View, Ap/Pa Only (01/11/18 15:37) Ct Head Wo (01/11/18 15:37) Code/Resuscitation (01/11/18 15:37) Initiate Admission Nursing Pro .admission (01/11/18 15:37) Telemetry Nursing Assessment ( (01/11/18 15:37) Lactic Acid Analyzer (01/11/18 15:37) Departure Impression Impression: Primary Impression: Acute delirium Decision to Admit/Discharge Decision to Admit/Dismiss Date: Jan 12, 2018 Disposition/Decision to Admit: 10:00 Departure Referrals: IGLESIA ZEPEDA DO (PCP/Family) Primary Care Physician GARRICK MCKEON DO Jan 11, 2018 17:11
[2018-01-11 17:15] VITALS: BP 158/73
[2018-01-11 17:49] LABS: BILIRUBIN,URINE NEGATIVE (NEGATIVE); CLARITY,URINE CLEAR; COLOR,URINE YELLOW; GLUCOSE, URINE (UA) NEGATIVE (NEGATIVE); KETONES,URINE NEGATIVE (NEGATIVE); LEUKOCYTE ESTERASE ,URINE NEGATIVE (NEGATIVE); NITRITE,URINE NEGATIVE (NEGATIVE); PH,URINE 5 (5-9); PROTEIN,URINE 3+ (NEGATIVE); UROBILINOGEN,URINE NORMAL (NORMAL)
[2018-01-11 17:55] LABS: BACTERIA,URINE TRACE /HPF
[2018-01-11] MEDS: fentaNYL INJECTION 100 MCG/2 ML AMP IVP PRN (18:11)
[2018-01-11] MEDS: HALOPERIDOL 5 MG/ML (HALDOL) AMP IM SCH (18:12)
--- NOTE | 2018-01-11 19:10 | Diagnostic Imaging Report ---
INDICATION: Uncooperative and combative. Confusion. EXAMINATION: Chest, 01/11/2018. COMPARISONS: None. FINDINGS: The heart is enlarged. The pulmonary vasculature appears congested. There are increased markings throughout both lungs consistent with edema. Bibasilar medial infiltrates seen in both lungs with peripheral infiltrate at the left lung base also possible. An adjacent small effusion is suspected. There is a hyperdensity overlying the thoracic spine, likely overlying the patient or due to a stimulator device, correlate clinically. IMPRESSION: 1. Pulmonary edema. 2. Scattered infiltrates and left effusion as described. Dictated by: Dictated on workstation # [id number]
[2018-01-11 19:21] VITALS: BP 158/73
[2018-01-11] MEDS ORDERED: RT-ALBUTEROL SULF 2.5 MG/3 ML PRE-MIX VIAL INH PRN (19:30)
[2018-01-11] MEDS ORDERED: LORazepam INJ 2 MG/ML (ATIVAN) VIAL ONE (19:38)
[2018-01-11] MEDS ORDERED: LORazepam INJ 2 MG/ML (ATIVAN) VIAL IVP ONE (19:45)
[2018-01-11] MEDS ORDERED: HALOPERIDOL 5 MG/ML (HALDOL) AMP IM ONE (19:45)
[2018-01-11] MEDS ORDERED: 1/2 NS IV SOLUTION 1,000 ML IV PRN (19:52)
[2018-01-11 20:00] VITALS: BP 164/74
[2018-01-11] MEDS ORDERED: LORazepam 1 MG (ATIVAN) TAB PO PRN (20:00)
[2018-01-11] MEDS ORDERED: LORazepam INJ 2 MG/ML (ATIVAN) VIAL IM/IV PRN (20:00)
[2018-01-11] MEDS ORDERED: LORazepam INJ 2 MG/ML (ATIVAN) VIAL IV PRN (20:00)
[2018-01-11] MEDS ORDERED: D5 1/2 NS 1000 ML IV SOLUTION 1,000 ML IV PRN (20:00)
[2018-01-11 20:25] LABS: ABG OXYGEN SATURATION 93 % (94-100); ABG PCO2 39 MMHG (35-45); ABG PO2 66 MMHG (79-93); ABG TCO2 20.7 MMOL/L (21.0-31.0)
[2018-01-11 20:28] LABS: ABG PH 7.33 (7.37-7.43); ALLENS TEST POSITIVE; INSPIRED O2 ROOM AIR; VENTILATOR NO
[2018-01-11 20:29] LABS: PATIENT TEMP 100.8
[2018-01-11 20:35] LABS: BASOPHILS % (AUTO) 0 % (0-10); EOSINOPHILS % (AUTO) 0 % (0-10); HEMATOCRIT 29 % (40-54); HEMOGLOBIN 9.7 G/DL (13.3-17.7); LYMPHOCYTES % (AUTO) 9 % (12-44); MEAN CORPUSCULAR HEMOGLOBIN 33 PG (25-34); MEAN CORPUSCULAR HGB CONC 34 G/DL (32-36); MEAN CORPUSCULAR VOLUME 98 FL (80-99); MEAN PLATELET VOLUME 11.3 FL (7.4-10.4); MONOCYTES # (AUTO) 1.1 X 10^3 (0.0-1.0); MONOCYTES % (AUTO) 10 % (0-12); NEUTROPHILS # (AUTO) 9.2 X 10^3 (1.8-7.8); NEUTROPHILS % (AUTO) 81 % (42-75); PLATELET COUNT 146 10^3/uL (130-400); RED BLOOD COUNT 2.94 10^6/uL (4.35-5.85); RED CELL DISTRIBUTION WIDTH 12.9 % (10.0-14.5); WHITE BLOOD COUNT 11.3 10^3/uL (4.3-11.0)
[2018-01-11 20:57] LABS: BUN/CREATININE RATIO 22; CARBON DIOXIDE 19 MMOL/L (21-32); CHLORIDE 112 MMOL/L (98-107); CREATININE SERUM 2.03 MG/DL (0.60-1.30); GFR ESTIMATED 33; POTASSIUM 3.8 MMOL/L (3.6-5.0); SODIUM 139 MMOL/L (135-145)
[2018-01-11 20:58] LABS: ALANINE AMINOTRANSFERASE 13 U/L (0-55); ALBUMIN 3.4 GM/DL (3.2-4.5); ALKALINE PHOSPHATASE 47 U/L (40-136); BILIRUBIN,TOTAL 0.7 MG/DL (0.1-1.0); CALCIUM 8.5 MG/DL (8.5-10.1); TOTAL PROTEIN 5.9 GM/DL (6.4-8.2)
[2018-01-11 21:01] LABS: GLUCOSE 58 MG/DL (70-105)
--- NOTE | 2018-01-11 21:01 | Diagnostic Imaging Report ---
EXAMINATION: CT of the brain without contrast dated 01/11/2018. TECHNIQUE: Multiple contiguous axial images were obtained through the brain without the use of intravenous contrast. INDICATION: Confusion, acute renal failure. FINDINGS: Axial imaging of the brain demonstrates no evidence for acute hemorrhage or infarct. There is no evidence for mass, mass effect, or midline shift. No hydrocephalus is seen. Diffuse atrophy noted. Examination is somewhat limited due to positioning of the patient. The osseous structures are intact with no acute abnormality appreciated. The mastoid air cells appear clear. Visualized sinuses demonstrate chronic findings with a retention polyp or cyst in the left maxillary sinus. Remaining sinuses are grossly unremarkable. IMPRESSION: Chronic change no acute abnormality. Dictated by: Dictated on workstation # [id number]
[2018-01-11] MEDS ORDERED: DEXTROSE 50% 50 ML (IMS) SYR ONE ×2 (21:02→21:03)
[2018-01-11] MEDS ORDERED: D5 NS 1000 ML IV SOLUTION 1,000 ML IV ONE (21:17)
[2018-01-11] MEDS: POLYETHYLENE GLYCOL 17 GM (MIRALAX) PACK PO SCH (21:22)
[2018-01-11] MEDS: inSUlin ASPART (NovoLOG) 1 UNIT/0.01 ML (CHARGE PER UNIT) SC SCH (21:22)
[2018-01-11] MEDS: DOCUSATE SODIUM 100 MG (COLACE) CAP PO SCH (21:22)
[2018-01-11] MEDS ORDERED: D5 NS 1000 ML IV SOLUTION 1,000 ML IV SCH (21:30)
[2018-01-11] MEDS ORDERED: DEXTROSE 50% 50 ML (IMS) SYR IV ONE (22:15)
[2018-01-11 23:52] VITALS: BP 150/67
[2018-01-12] MEDS: HALOPERIDOL 5 MG/ML (HALDOL) AMP IM SCH ×4 (00:53→18:15)
--- OUTSIDE RECORDS SUMMARY | 2018-01-12 01:08 | XMS REPORT ---
Author Author MARIZOL ROWELL Organization [facility] Address [address] [place] [address] Care Team Providers Care Stitcher Special Machine Name Role Phone LELIA MARIZOL Unavailable PROBLEMS Unknown Problems ALLERGIES Substance Reaction Event Type Date Status Penicillin V Potassium Unknown Drug Allergy Jan, Active ENCOUNTERS Encounter Location Date Diagnosis [facility] [address] [facility] [id number], [place] [id number] Jan, Encounter for dental examination Z01.20 IMMUNIZATIONS No Known Immunizations SOCIAL HISTORY Never Assessed REASON FOR VISIT prophy/barbara PLAN OF CARE Activity Details Follow Up First Available Reason:Restorative VITAL SIGNS Heart Rate 68 bpm 2017-02-08 Blood pressure systolic 119 mmHg 2017-02-08 Blood pressure diastolic 68 mmHg 2017-02-08 MEDICATIONS Medication Instructions Dosage Frequency Start Date End Date Duration Status NovoLog Active Lantus Active RESULTS No Results PROCEDURES Procedure Date Ordered Result Body Site COMP ORAL EVALUATION - NEW/EST PT Feb 08, 2017 INTRAORL-PERIAPICAL 1 FILM [id number] Feb 08, 2017 TOPICAL FLUORIDE VARNISH Feb 08, 2017 PROPHYLAXIS - ADULT Feb 08, 2017 INTRAORL-PERIAPICAL EA ADD FILM Feb 08, 2017 INTRAORL-PERIAPICAL EA ADD FILM Feb 08, 2017 PANORAMIC FILM SEE ALSO CODE [id number] Feb 08, 2017 BITEWINGS - FOUR FILMS Feb 08, 2017 INSTRUCTIONS MEDICATIONS ADMINISTERED No Known Medications MEDICAL (GENERAL) HISTORY Type Description Date Medical History High Blood pressure Medical History Diabetes type II Medical History 3/4/5/ fused/ stimulaotor in place Medical History Stage 3 kidney diease-pt reports stable Surgical History Back Surgery 2010 Hospitalization History Hospitalization for surgery only
[2018-01-12 03:57] VITALS: BP 163/74
[2018-01-12 05:10] LABS: BASOPHILS % (AUTO) 0 % (0-10); EOSINOPHILS # (AUTO) 0.1 10^3/uL (0.0-0.3); EOSINOPHILS % (AUTO) 1 % (0-10); HEMATOCRIT 29 % (40-54); HEMOGLOBIN 9.7 G/DL (13.3-17.7); LYMPHOCYTES # (AUTO) 1.1 X 10^3 (1.0-4.0); LYMPHOCYTES % (AUTO) 12 % (12-44); MEAN CORPUSCULAR HEMOGLOBIN 32 PG (25-34); MEAN CORPUSCULAR HGB CONC 33 G/DL (32-36); MEAN CORPUSCULAR VOLUME 98 FL (80-99); MEAN PLATELET VOLUME 10.8 FL (7.4-10.4); MONOCYTES % (AUTO) 11 % (0-12); NEUTROPHILS # (AUTO) 7.4 X 10^3 (1.8-7.8); NEUTROPHILS % (AUTO) 77 % (42-75); PLATELET COUNT 128 10^3/uL (130-400); RED CELL DISTRIBUTION WIDTH 13.1 % (10.0-14.5); WHITE BLOOD COUNT 9.7 10^3/uL (4.3-11.0)
[2018-01-12 05:36] LABS: ALBUMIN 3.2 GM/DL (3.2-4.5); BILIRUBIN,TOTAL 0.8 MG/DL (0.1-1.0); CALCIUM 8.7 MG/DL (8.5-10.1); CREATININE SERUM 1.92 MG/DL (0.60-1.30); POTASSIUM 3.7 MMOL/L (3.6-5.0); TOTAL PROTEIN 5.8 GM/DL (6.4-8.2)
[2018-01-12] MEDS: inSUlin ASPART (NovoLOG) 1 UNIT/0.01 ML (CHARGE PER UNIT) SC SCH ×4 (06:01→21:55)
[2018-01-12 07:47] VITALS: BP 189/86
[2018-01-12] MEDS: fentaNYL INJECTION 100 MCG/2 ML AMP IVP PRN (08:02)
[2018-01-12] MEDS: POLYETHYLENE GLYCOL 17 GM (MIRALAX) PACK PO SCH ×2 (08:03→21:53)
[2018-01-12] MEDS: DOCUSATE SODIUM 100 MG (COLACE) CAP PO SCH ×2 (08:03→21:52)
[2018-01-12] MEDS ORDERED: SENNA W/DOCUSATE (SENOKOT S) TABLET PO NR (08:45)
[2018-01-12] MEDS ORDERED: oxyCODONE/APAP 10/325MG (PERCOCET 10) TABLET PO PRN (08:45)
--- NOTE | 2018-01-12 08:47 | History & Physical-Hospitalist ---
History of Present Illness HPI/Chief Complaint CC: Delirium HPI: This is a 72-year-old white male of Dr. Ceron's in [place] who lives in [place], [place] who is known to me from [facility] when I was consulted on Tuesday following an uncomplicated lumbar spine surgery by Dr. Alcantara. He had done well after surgery but yesterday had urinary retention requiring Bernstein catheter insertion with 500 mL output along with significant confusion that required transfer to acute care [facility] to fully evaluate and rule out sepsis. He was originally planning on going to [facility] inpatient rehabilitation today but due to the severity of his delirium and the need for further testing he was felt in need of higher level care status transferred to room 405 the [facility] on my service to fully evaluate. Workup ensued revealing no evidence of sepsis and creatinine of 2.0 improved from baseline at 2.4 of which he sees [place] [facility]. There was a question whether or not he was a heavy alcohol drinker but I reviewed my note revealing no heavy regular use of alcohol that he was placed on alcohol withdrawal protocol just in case and was given a banana bag. At this current time patient is not the most cooperative that we did initiate a medication is requested of Percocet of 10 mg and taking 2 at a time every 4 hours which is the only thing that is helping with the pain. He is willing to cooperate and go to inpatient rehabilitation tomorrow although he told chest x-ray medical coding technician to come back later and physical therapy to come back later. [facility] rehabilitation equal opportunity director did speak with him and he is in agreement for transfer to inpatient rehabilitation tomorrow. No BM for the past 2 days so we will maintain bowel regimen in the meantime. His confusion has improved immensely he is now oriented 3 although frustrated due to the pain. Source: patient, RN/MD Exam Limitations: clinical condition Date Seen 01/12/18 Time Seen by Provider: 08:30 Attending Physician Celi Mckeon DO PCP Esau Ceron DO Referring Physician Date of Admission Jan 11, 2018 at 17:12 Home Medications & Allergies Home Medications Reviewed patient Home Medication Reconciliation performed by pharmacy medication reconciliations medical coding technician and/or nursing. Patients Allergies have been reviewed. 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) Alcohol Use: Denies Use Recreational Drug Use: No Smoking Status: Former Smoker Former Smoker, Quit: Jun 13, 1966 Type Used: Cigarettes Physical Abuse Screen: No Sexual Abuse: No Recent Foreign Travel: No (UNKNOWN ) Recent Hopitalizations: Yes (back surgery) Immunizations Up To Date Date of Pneumonia Vaccine: Jun 13, 2015 Date of Influenza Vaccine: Mar 10, 2017 Seasonal Allergies Seasonal Allergies: No Past Medical History Surgeries: Orthopedic Respiratory: Sleep Apnea Currently Using CPAP: No Currently Using BIPAP: No Cardiac: High Cholesterol, Hypertension Neurological: Neuropathy Genitourinary: Prostate Problems, Renal Failure Gastrointestinal: Gastroesophageal Reflux, Chronic Constipation Musculoskeletal: Arthritis, Back Injury, Chronic Back Pain, Spasms Endocrine: Diabetes, Insulin dep History of Blood Disorders: No Family History Patient reports no known family medical history. Diabetes Review of Systems Constitutional: see HPI, weakness EENTM: no symptoms reported Respiratory: no symptoms reported Cardiovascular: no symptoms reported Gastrointestinal: constipation Genitourinary: decreased output, frequency Musculoskeletal: back pain Skin: no symptoms reported Psychiatric/Neurological: No Symptoms Reported All Other Systems Reviewed Negative Unless Noted: Yes Physical Exam Physical Exam Vital Signs Vital Signs - First Documented 01/11/18 17:15 Temp 100.6 Pulse 80 Resp 18 B/P (MAP) 158/73 (101) Pulse Ox 96 O2 Delivery Room Air Capillary Refill : Height, Weight, BMI Height: 5'5.00" Weight: 200lbs. 0.0oz. [id number]; 33.3 BMI Method: General Appearance: No Apparent Distress, WD/WN, Chronically ill Eyes: Bilateral Eye Normal Inspection, Bilateral Eye PERRL HEENT: PERRL/EOMI, TMs Normal, Normal ENT Inspection, Pharynx Normal Neck: Full Range of Motion, Normal Inspection, Non Tender, Supple, Carotid Bruit Respiratory: Chest Non Tender, Lungs Clear, Normal Breath Sounds, No Accessory Muscle Use, No Respiratory Distress Cardiovascular: Regular Rate, Rhythm, No Edema, No Gallop, No JVD, No Murmur, Normal Peripheral Pulses Gastrointestinal: Normal Bowel Sounds, No Organomegaly, No Pulsatile Mass, Non Tender, Soft Back: Normal Inspection, No CVA Tenderness, No Vertebral Tenderness Extremity: Normal Capillary Refill, Normal Inspection, Normal Range of Motion, Non Tender, No Calf Tenderness, No Pedal Edema Neurologic/Psychiatric: Alert, Oriented x3, No Motor/Sensory Deficits, Normal Mood/Affect, Other (confusion has resolved) Skin: Normal Color, Warm/Dry Lymphatic: No Adenopathy Results Results/Procedures Labs Laboratory Tests 01/11/18 20:25 01/12/18 05:02 Patient resulted labs reviewed. Assessment/Plan Admission Diagnosis Delirium severe Acute on CRF Plan: HLIVF after Banana Bag completed Percocet pain meds BM regimen Maintain bernstein catheter Urinary retention meds in meantime Admission Status: Inpatient Order (span 2 midnights) Reason for Inpatient Admission: Severe delirium will require over 2 midnight to clear due to acute on chronic renal failure Diagnosis/Problems Diagnosis/Problems (1) Acute delirium Status: Resolved (2) Renal failure (ARF), acute on chronic Status: Acute Qualifiers: Chronic kidney disease stage: stage 4 (severe) (3) Fusion of lumbar spine Status: Acute Assessment & Plan: POD # 3 (4) CKD (chronic kidney disease) Status: Chronic Qualifiers: Chronic kidney disease stage: stage 4 (severe) Qualified Codes: N18.4 - Chronic kidney disease, stage 4 (severe) (5) Essential (primary) hypertension Status: Chronic (6) Normocytic anemia Status: Chronic (7) Hyperlipidemia Status: Chronic (8) Insulin dependent diabetes mellitus Status: Chronic (9) Constipation Status: Acute Qualifiers: Constipation type: drug induced constipation Qualified Codes: K59.03 - Drug induced constipation Clinical Quality Measures DVT/VTE Risk/Contraindication: Risk Factor Score Per Nursin RFS Level Per Nursing on Admit: 4+=Very High Contraindications-Pharm: Other *list below* Other: recent spine surgery CELI MCKEON DO Jan 12, 2018 08:47
[2018-01-12] MEDS ORDERED: THIAMINE INJECTION 100 MG, FOLIC ACID INJECTION 1 MG, VITAMIN MULTI INJECTION 10 ML, MA... IV SCH ×5 (09:00)
[2018-01-12] MEDS: SENNA W/DOCUSATE (SENOKOT S) TABLET PO SCH ×2 (09:13→21:52)
--- NOTE | 2018-01-12 09:13 | Consultation-Cardiology ---
HPI-Cardiology Cardiology Consultation: Date of Consultation 01/12/18 Date of Admission Attending Physician Celi Varghese DO Admitting Physician Esau Ceron DO Consulting Physician Ning CORTEZ MD HPI: Time Seen by Provider: 15:00 Chief Complaint: Altered mental status This is a 72-year-old gentleman who recently had hip surgery however altered mental status and acute renal failure was noted. He was transferred to [facility] for further management. He has history of hypertension. The patient denies any significant chest pain or shortness of breath. Review of Systems-Cardiology Review of Systems Constitutional: As described under HPI; No As described under HPI, No no symptoms reported, No chills, No fever, No lightheadedness Eyes: No As described under HPI, No no symptoms reported, No blindness, No blurred vision, No contact lenses, No drainage, No decreased acuity, No foreign body sensation, No pain, No vision change Ears/Nose/Throat: No As described under HPI, No no symptoms reported, No chronic hearing loss, No ear discharge, No ear pain, No nasal drainage, No ulcerations Respiratory: No no symptoms reported; As described under HPI; No As described under HPI, No cough, No orthopnea, No shortness of breath, No SOB with excertion Cardiovascular: No no symptoms reported; As described under HPI; No As described under HPI, No chest pain, No edema, No irregular heart rate, No lightheadedness, No palpitations Gastrointestinal: No no symptoms reported, No As described under HPI, No abdomen distended, No abdominal pain, No blood streaked bowels, No constipation , No diarrhea, No nausea, No vomiting, No stool coloration changes Genitourinary: No As described under HPI, No burning, No dysuria, No discharge , No frequency, No flank pain, No hematuria, No urgency Musculoskeletal: No no symptoms reported, No As describe under HPI, No back pain, No gout, No joint pain, No joint swelling, No muscle pain, No muscle stiffness, No neck pain, No other Skin: No no symptoms reported, No As described under HPI, No change in color, No change in hair/nails, No dryness, No lesions, No lumps, No rash, No other, No skin related problems, No ulcerations, No rash on exposed areas, No ulcerations on exposed areas Psychiatric/Neurological: No anxiety, No depression, No seizure, No focal weakness, No syncope Hematologic: No bleeding abnormalities BMT-Ebphsk-Wfsuld Hx Patient Social History Alcohol Use: Denies Use Recreational Drug Use: No Smoking Status: Former Smoker Type Used: Cigarettes Recent Foreign Travel: No (UNKNOWN ) Physical Abuse Screen: No Sexual Abuse: No Immunizations Up To Date Date of Pneumonia Vaccine: Jun 13, 2015 Date of Influenza Vaccine: Mar 10, 2017 Past Medical History PMH As described under Assessment. Family Medical History Family History: Patient reports no known family medical history. Allergies and Home Medications Allergies Coded Allergies: Penicillins (Verified Allergy, Unknown, 01/11/18) Home Medications Acetaminophen 325 Mg Tablet, 650 MG PO DAILY PRN for PAIN-MILD, (Reported) TAKES 2 (325 MG) TABLETS Allopurinol 300 Mg Tablet, 300 MG PO DAILY, (Reported) Amlodipine Besylate 10 Mg Tablet, 10 MG PO HS, (Reported) Aspirin 81 Mg Tablet.dr, 81 MG PO DAILY, (Reported) Calcitriol 0.25 Mcg Capsule, 0.25 MCG PO Q48H, (Reported) Carvedilol 25 Mg Tablet, 25 MG PO BID, (Reported) Chlorthalidone 25 Mg Tablet, 25 MG PO HS, (Reported) Cholecalciferol (Vitamin D3) 2,000 Unit Capsule, 2,000 UNIT PO DAILY, (Reported) Colestipol HCl 1 Gm Tablet, 2 GM PO BID PRN for DIARRHEA, (Reported) TAKES 2 (1 GM) TABLETS Diclofenac Sodium 100 Gm Gel..gram., TOP QID PRN for JOINT PAIN, (Reported) Diphenoxylate HCl/Atropine 1 Each Tablet, 1 TAB PO BID PRN for DIARRHEA, ( Reported) Doxazosin Mesylate 2 Mg Tablet, 2 MG PO BID, (Reported) Epinephrine 0.3 Mg/0.3 Ml Auto.injct, 0.3 MG INJ UD PRN for BEE STINGS, ( Reported) Finasteride 5 Mg Tablet, 5 MG PO DAILY, (Reported) Furosemide 20 Mg Tablet, 20 MG PO DAILY, (Reported) Gabapentin 300 Mg Capsule, 300 MG PO HS, (Reported) TAKES ALONG WITH 100MG CAPSULE FOR A TOTAL DOSE OF 400MG Gabapentin 100 Mg Capsule, 100 MG PO HS, (Reported) TAKES ALONG WITH 300MG CAPSULES FOR A TOTAL DOSE OF 400MG Glucagon,Human Recombinant 1 Mg/Kit Soln, INJ UD PRN for BS, (Reported) Hydrocodone/Acetaminophen 1 Each Tablet, 1 TAB PO BID PRN for PAIN-MODERATE, ( Reported) Insulin Aspart 300 Units/3 Ml Solution, 5-15 UNITS SC AC, (Reported) Insulin Degludec 200 Unit/1 Ml Insuln.pen, 54 UNITS SC HS, (Reported) Lisinopril 10 Mg Tablet, 10 MG PO DAILY, (Reported) Lovastatin 10 Mg Tablet, 10 MG PO HS, (Reported) Omeprazole 20 Mg Capsule.dr, 20 MG PO BID PRN for HEARTBURN, (Reported) Tamsulosin HCl 0.4 Mg Cap.er.24h, 0.4 MG PO 1730, (Reported) Tizanidine HCl 4 Mg Tablet, 4 MG PO TID PRN for MUSCLE SPASMS, (Reported) Tramadol HCl 50 Mg Tablet, 100 MG PO Q6H PRN for PAIN-MODERATE, (Reported) Patient Home Medication List Home Medication List Reviewed: Yes Physical Exam-Cardiology Physical Exam Vital Signs/I&O 01/12/18 01/12/18 01/12/18 01/12/18 11:49 14:45 15:28 19:11 Temp 98.5 97.5 98.2 Pulse 69 75 88 Resp 18 20 18 B/P (MAP) 159/70 (99) 140/63 (88) 115/56 (75) Pulse Ox 95 96 97 97 O2 Delivery Room Air Room Air Room Air Room Air 01/12/18 00:00 Intake Total 0 ml Output Total 675 ml Balance -675 ml Capillary Refill : Constitutional: appears stated age, AAO x 3; No apparent distress; well- developed, well-nourished HEENT: PERRL; No normal ENT inspection, No TMs normal, No pharynx normal, No scleral icterus (R), No scleral icterus (L), No pale conjunctivae (R), No pale conjunctivae (L), No photophobia, No TM abnormal (R), No TM abnormal (L), No pharyngeal erythema, No tonsillar exudate, No other, No discharge, No EOMI; hearing is well preserved; No hard of hearing; oral hygience is good; No ulceration, No xanthelasmas are seen Neck: No non-tender, No full range of motion, No supple, No normal inspection, No carotid bruit, No limited range of motion, No lymphadenopathy (R), No lymphadenopathy (L), No tender lateral, No tender midline, No thyromegaly, No other; carotid pulses are 2 + bilaterally; No with good upstrokes Respiratory: No accessory muscle use, No respiratory distress, No chest tender , No chest expansion is symmetric; chest is bilaterally symmetric; No lungs clear to percussion; lungs clear to auscultation; No crackles, No rhonchi, No rales, No stridor, No wheezing, No pleural rub, No other Cardiovascular: regular rate-rhythm; No irregularly irregular, No extra beats, No parasternal heave is noted, No JVD, No edema, No bradycardia, No tachycardia , No point of maximal impulse, No cardiac thrills are palpable; S1 and S2; No gallop/S3, No gallop/S4, No diastolic murmur, No systolic murmur, No friction rub, No click, No other Gastrointestinal: No tender, No soft, No round, No distended, No pulsatile mass , No organomegaly, No guarding, No rebound, No tenderness, No hernia, No mass, No audible bowel sounds, No abnormal bowel sounds, No abdominal bruits, No spleenomegaly, No other Rectal: deferred Extremities: No normal range of motion, No non-tender, No normal inspection, No pedal edema, No calf tenderness, No normal capillary refill, No pelvis stable , No calf tenderness, No inflammation, No pedal edema, No slow capillary refill , No swelling, No other, No abrasion, No clubbing, No cyanosis, No ecchymosis, No laceration, No no lower extremity edema bilateral, No significant edema, No tenderness, No wound Neurologic/Psychiatric: no motor/sensory deficits, alert, normal mood/affect, oriented x 3, power is 5/5 both on sides Skin: No normal color, No warm/dry, No cyanosis, No cool, No diaphoresis, No damp, No ecchymosis, No jaundice, No mottled, No pallor, No rash, No tattoos/ piercings, No ulcerations, No rash on exposed areas, No ulcerations on exposed areas, No other Data Review Labs Laboratory Tests 01/11/18 23:12: Glucometer 108 01/12/18 00:30: Glucometer 90 01/12/18 00:58: Glucometer 97 01/12/18 05:02: White Blood Count 9.7, Red Blood Count 3.00L, Hemoglobin 9.7L, Hematocrit 29L, Mean Corpuscular Volume 98, Mean Corpuscular Hemoglobin 32, Mean Corpuscular Hemoglobin Concent 33, Red Cell Distribution Width 13.1, Platelet Count 128L, Mean Platelet Volume 10.8H, Neutrophils (%) (Auto) 77H, Lymphocytes (%) (Auto) 12, Monocytes (%) (Auto) 11, Eosinophils (%) (Auto) 1, Basophils (%) (Auto) 0, Neutrophils # (Auto) 7.4, Lymphocytes # (Auto) 1.1, Monocytes # (Auto) 1.0, Eosinophils # (Auto) 0.1, Basophils # (Auto) 0.0, Sodium Level 140, Potassium Level 3.7, Chloride Level 112H, Carbon Dioxide Level 19L, Anion Gap 9, Blood Urea Nitrogen 39H, Creatinine 1.92H, Estimat Glomerular Filtration Rate 35, BUN/ Creatinine Ratio 20, Glucose Level 62L, Calcium Level 8.7, Total Bilirubin 0.8, Aspartate Amino Transf (AST/SGOT) 14, Alanine Aminotransferase (ALT/SGPT) 9, Alkaline Phosphatase 47, Troponin I < 0.30, B-Type Natriuretic Peptide 59.7, Total Protein 5.8L, Albumin 3.2 01/12/18 05:08: Glucometer 67L 01/12/18 06:40: Glucometer 87 01/12/18 10:31: Glucometer 88 01/12/18 15:33: Glucometer 201H Microbiology 01/11/18 Blood Culture - Preliminary, Resulted No growth ECG Impression ECG Initial ECG Rhythm: Normal Sinus Initial ECG Impression: Nonspecific Changes A/P-Cardiology Assessment/Admission Diagnosis Post hip surgery, Altered mental status, Acute renal failure, Hypertension. Plan Post hip surgery, no active issues. Altered mental status, likely secondary to pain medications. Much better during my examination. Acute renal failure, defer to Dr. Varghese. Hypertension. Continue antihypertensive therapy. Echocardiogram shows normal LV function with no wall motion abnormalities. No valvular heart disease. Thank you for your consultation. Please call me if you have any questions. Alva Cortez MD, FACP, FACC, FSCAI, FHRS, CCDS Interventional Cardiology Cardiac Electrophysiology Vascular Medicine and Endovascular Interventions Clinical Quality Measures DVT/VTE Risk/Contraindication: Risk Factor Score Per Nursin RFS Level Per Nursing on Admit: 4+=Very High Contraindications-Pharm: Other *list below* Other: recent spine surgery Ning CORTEZ MD Jan 12, 2018 09:13
[2018-01-12] MEDS: RT-ALBUTEROL SULF 2.5 MG/3 ML PRE-MIX VIAL INH SCH ×4 (09:17→18:51)
--- NOTE | 2018-01-12 09:43 | Physical Therapy Progress Note ---
Therapy Progress Note Chart reviewed and evaluation attempted. Patient refused due to pain. Nurse states he has already had pain meds. Will try again later this morning. DESIREE REZA PT Jan 12, 2018 09:43
--- NOTE | 2018-01-12 09:56 | Diagnostic Imaging Report ---
INDICATION: Pulmonary infiltrate followup. Portable chest 9:39 a.m. Heart size and pulmonary vascularity are within normal limits. Right lung is clear. There is some patchy infiltrate in left lung base which appears improved from the previous day. IMPRESSION: Improving left basilar infiltrate. Dictated by: Dictated on workstation # [id number]
[2018-01-12] MEDS ORDERED: GABA-486 PO (10:20)
[2018-01-12] MEDS ORDERED: FINA5TAB6 PO (10:20)
[2018-01-12] MEDS ORDERED: INSU100I14 SC (10:20)
[2018-01-12] MEDS ORDERED: LISI10TA2 PO (10:20)
[2018-01-12] MEDS ORDERED: DOXA2TAB2 PO (10:20)
[2018-01-12] MEDS ORDERED: ALLO300T2 PO (10:20)
[2018-01-12] MEDS ORDERED: TAMS0.4C2 PO (10:20)
[2018-01-12] MEDS ORDERED: CALC0.253 PO (10:20)
[2018-01-12] MEDS ORDERED: TIZA4TAB3 PO (10:20)
[2018-01-12] MEDS ORDERED: INSU200I4 SC (10:20)
[2018-01-12] MEDS ORDERED: DICL100G31 TOP (10:34)
[2018-01-12] MEDS ORDERED: EPIN0.3P18 INJ (10:34)
[2018-01-12] MEDS ORDERED: GLUC1KIT INJ (10:34)
[2018-01-12] MEDS ORDERED: PANTOPRAZOLE 20 MG TABLET (PROTONIX) PO PRN (11:06)
[2018-01-12 11:49] VITALS: BP 159/70
[2018-01-12] MEDS: BETHANECHOL 25 MG (URECHOLINE) TAB PO SCH ×3 (12:15→21:52)
--- NOTE | 2018-01-12 13:10 | Physical Therapy Evaluation ---
PT Evaluation-General Medical Diagnosis Admission Date Jan 11, 2018 at 17:12 Medical Diagnosis: lumbar spine surgery Onset Date: Jan 11, 2018 Therapy Diagnosis Therapy Diagnosis: impaired mobility, endurance Height/Weight Height (Feet): 5 Height (Inches): 5.00 Weight (Pounds): 200 Weight (Ounces): 0.0 Precautions Precautions/Isolations: Fall Prevention, Standard Precautions, Pressure Ulcer Referral Physician: Celi Varghsee DO Reason for Referral: Evaluation/Treatment Medical History Pertinent Medical History: DM, GERD, HTN, Neuropathy Additional Medical History Past Medical History Surgeries: Orthopedic Respiratory: Sleep Apnea Currently Using CPAP: No Currently Using BIPAP: No Cardiac: High Cholesterol, Hypertension Neurological: Neuropathy Genitourinary: Prostate Problems, Renal Failure Gastrointestinal: Gastroesophageal Reflux, Chronic Constipation Musculoskeletal: Arthritis, Back Injury, Chronic Back Pain, Spasms Endocrine: Diabetes, Insulin dep History of Blood Disorders: No Reviewed History: Yes Social History Home: Single Level Current Living Status: Other Family Entry Into Home: Stairs With Railing PT Steps Into Home: 3 Prior/Core FIM Prior Level of Function Functional Baxter Measure 0=Not Assessed/NA 4=Minimal Assistance 1=Total Assistance 5=Supervision or Setup 2=Maximal Assistance 6=Modified Baxter 3=Moderate Assistance 7=Complete Baxter Bed Mobility: 7 Transfers (B,C,W/C) (FIM): 7 Gait: 7 PT Evaluation-Current Subjective Patient in bed pre tx, agrees to PT, has 10/10 pain in low back. Patient is supposed to transfer to rehab tomorrow. Pt/Family Goals to be independent at home Objective Patient Orientation: Person, Place, Situation Attachments: IV TLSO ROM/Strength ROM Lower Extremities WNL Strength Lower Extremities 4+/5 gross bilateral lower extremities Neuromuscular (Tone, Coordination, Reflexes) NT Sensory Vision: Functional Hearing: Functional Sensation Right Lower Extremit: Intact Sensation Left Lower Extremity: Intact Sensation Lower Extremities Patient states he does have occasional numbness and tingling in his legs, worse on the left side Transfers Functional Baxter Measure 0=Not Assessed/NA 4=Minimal Assistance 1=Total Assistance 5=Supervision or Setup 2=Maximal Assistance 6=Modified Baxter 3=Moderate Assistance 7=Complete Baxter Transfers (B, C, W/C) (FIM): 4 Scootin Rollin Supine to/from Sit: 4 Sit to/from Stand: 4 bed t/f WC(FIM only if WC use): 4 Patient needs min assist for supine to sit, CGA for transfers. Gait Mode of Locomotion: Walk Anticipated Mode of Locomotion: Walk Gait (FIM): 4 Distance: 300' Gait Level of Assist: 4 Gait Persons Needed: 1 Gait Assistive Device: FWW Comments/Gait Description Patient ambulated 300' with a rolling walker with CGA. Slow,antalgic ambulation. Balance Sitting Static: Normal Sitting Dynamic: Normal Standing Static: Good Standing Dynamic: Good Treatment Patient in recliner post tx with nurse call, phone, tray, all needs met. Assessment/Needs Patient has impaired mobility, endurance post lumbar spine surgery Rehab Potential: Fair PT Short Term Goals Short Term Goals Time Frame: Jan 19, 2018 Transfers (B,C,W/C) (FIM): 5 Gait (FIM): 5 Gait Distance Comment: 300' Gait Level of Assist: 5 Gait Assistive Device: FWW PT Plan Problem List Problem List: Activity Tolerance, Functional Strength, Safety, Balance, Gait, Transfer, Bed Mobility, ROM Treatment/Plan Treatment Plan: Continue Plan of Care Treatment Plan: Bed Mobility, Education, Functional Activity Cristal, Functional Strength, Gait, Safety, Therapeutic Exercise, Transfers Treatment Duration: Jan 19, 2018 Frequency: 6 times per week Estimated Hrs Per Day: .25 hour per day (15-30') Patient and/or Family Agrees t: Yes Safety Risks/Education Patient Education: Gait Training, Transfer Techniques, Correct Positioning, Reviewed Don/Doff Brace, Safety Issues Teaching Recipient: Patient Teaching Methods: Demonstration, Discussion Response to Teaching: Reinforcement Needed Discharge Recommendations Plan Patient will perform bed mobility and transfer training, balance and endurance training, functional strengthening, stair training, gait training, and education , to improve functional mobility and independence at home. Therapy D/C Recommendations: Home w/ Family Support Time/GCodes Time In: 1140 Time Out: 1200 Total Billed Treatment Time: 20 Total Billed Treatment 1 visit JAMAAL 20' DESIREE REZA PT Jan 12, 2018 13:10
[2018-01-12] MEDS: oxyCODONE/APAP 10/325MG (PERCOCET 10) TABLET PO PRN ×2 (13:16→22:05)
[2018-01-12] MEDS ORDERED: PATIENT MAY USE OWN MED,SINGLE MED PO SCH (14:00)
--- NOTE | 2018-01-12 14:43 | Occupational Therapy Eval ---
OT Evaluation-General/PLF Medical Diagnosis Admission Date Jan 11, 2018 at 17:12 Medical Diagnosis: lumbar spine surgery Onset Date: Jan 11, 2018 Therapy Diagnosis Therapy Diagnosis: decr self care, weakness, decr funct mob, decr act tolerance Height/Weight Height (Feet): 5 Height (Inches): 5.00 Weight (Pounds): 200 Weight (Ounces): 0.0 Precautions Precautions/Isolations: Fall Prevention, Standard Precautions, Pressure Ulcer Safety Interventions: Bed Exit Alarm, Reorient-Attempt, Reorient-PRN Weight Bear Status TLSO on when up Referral Physician: Celi Varghese DO Medical History Pertinent Medical History: Arthritis, DM, GERD, HTN, Neuropathy, Renal Insufficiency Additional Medical History Sleep apnea. Prostate problems. Chronic constipation. Multiple back surgeries. Chronic back pain, spasms. Current History Lumbar surgery on 01-09-18. Admitted to acute are with acute renal failure delirium and urinary retention Reviewed History: Yes Social History Home: Single Level Current Living Status: Other Family Entry Into Home: Stairs With Railing Steps Into Home: 3 ADL-Prior Level of Function ADL PLOF Comments Pt reported that he has been able to manage his basic self care needs and tasks around the home. 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 Pt reported back pain but did not rate or describe it. Appearance Alert, cooperative Mental Status/Objective Patient Orientation: Person, Place, Time, Situation Current Glasses/Contacts: Yes Hearing Aids: No Dentures/Partials: No Upper Extremity ROM Grossly WFL bilat Upper Extremity Strength Grossly 4/5 bilat ADL-Treatment ADL-Current Pt reported that he has been able to feed himself without difficulty. He is concerned about not having had a BM since surgery. Transfers with PT were CGA and he walked 300' with FWW Functional [place] Measure 0=Not Assessed/NA 4=Minimal Assistance 1=Total Assistance 5=Supervision or Setup 2=Maximal Assistance 6=Modified [place] 3=Moderate Assistance 7=Complete IndependenceIRFPAI Quality Coding Scale 6 Independent with activity with or without an assistive device 5 Patient requires set up or clean up by helper. Patient completes activity by themselves 4 Supervision or touching assist (CGA). [place] provide cues , steadying assist 3 The helper provides less than half the effort to complete the activity 2 The helper provides more than half the effort to complete the activity 1 Dependent. The helper does all the effort to complete an activity 7 Patient refused to complete or attempt activity 9 The patient did not perform the activity before the current illness or injury 88 Not attempted due to Medical conditions or safety concerns Education OT Patient Education: Purpose of tx/functional activities, Rehab process Teaching Recipient: Patient Teaching Methods: Discussion Response to Teaching: Verbalize Understanding OT Butter Maker Goals Skilled Nursing Goals Time Frame: Jan 19, 2018 Eating (FIM): 7 Grooming(FIM): 6 Bathing(FIM): 6 Upper Body Dressing(FIM): 6 Lower Body Dressing(FIM): 6 Toileting(FIM): 6 Toilet/Commode Transfer(FIM): 6 Shower Transfer(FIM): 5 Additional Goals: 1-Demonstrate ADL Tasks, 2-Verbalize Understanding, 3- ImproveStrength/Cristal 1=Demonstrate adherence to instructed precautions during ADL tasks. 2=Patient will verbalize/demonstrate understanding of assistive devices/ modifications for ADL. 3=Patient will improve strength/tolerance for activity to enable patient to perform ADL's. OT Education/Plan Problem List/Assessment Assessment: Decreased Activ Tolerance, Decreased UE Strength, Dependent Transfers, Impaired Self-Care Skills Pt would benefit from skilled OT to increase his independence in basic self care to allow him to safely return home after back surgery Discharge Recommendations Plan/Recommendations: Continue POC Treatment Plan/Plan of Care Treatment,Training & Education: Yes Patient would benefit from OT for education, treatment and training to promote independence in ADL's, mobility, safety and/or upper extremity function for ADL' s. Plan of Care: ADL Retraining, Functional Mobility, UE Funct Exercise/Act, UE Neuromus Re-Ed/Coord Treatment Duration: Jan 19, 2018 Frequency: 5 times per week Estimated Hrs Per Day: .5 hour per day Agreement: Yes Rehab Potential: Fair Time/GCodes Start Time: 11:45 Stop Time: 12:00 Total Time Billed (hr/min): 15 Billed Treatment Time visit, evaluation moderate intensity 15 minutes SEAN GRANADOS OT Jan 12, 2018 14:43
[2018-01-12 15:28] VITALS: BP 140/63
[2018-01-12] MEDS ORDERED: TAMSULOSIN 0.4 MG (FLOMAX) CAP PO SCH (18:00)
[2018-01-12 19:11] VITALS: BP 115/56
[2018-01-12] MEDS ORDERED: SIMvastatin 10 MG (ZOCOR) TAB PO SCH (21:00)
[2018-01-12] MEDS ORDERED: amLODIPine 10 MG (NORVASC) TAB PO SCH (21:00)
[2018-01-12] MEDS: CARVEDILOL 12.5 MG (COREG) TABLET PO SCH (21:53)
[2018-01-13] VITALS: BP 121/59
[2018-01-13] MEDS: HALOPERIDOL 5 MG/ML (HALDOL) AMP IM SCH ×2 (00:58→07:03)
[2018-01-13 04:00] VITALS: BP 116/42
[2018-01-13] MEDS: oxyCODONE/APAP 10/325MG (PERCOCET 10) TABLET PO PRN ×2 (04:28→08:33)
[2018-01-13 05:43] LABS: BASOPHILS % (AUTO) 0 % (0-10); EOSINOPHILS # (AUTO) 0.2 10^3/uL (0.0-0.3); EOSINOPHILS % (AUTO) 3 % (0-10); HEMATOCRIT 28 % (40-54); HEMOGLOBIN 9.6 G/DL (13.3-17.7); LYMPHOCYTES # (AUTO) 1.4 X 10^3 (1.0-4.0); LYMPHOCYTES % (AUTO) 20 % (12-44); MEAN CORPUSCULAR HEMOGLOBIN 33 PG (25-34); MEAN CORPUSCULAR HGB CONC 34 G/DL (32-36); MEAN CORPUSCULAR VOLUME 97 FL (80-99); MEAN PLATELET VOLUME 11.3 FL (7.4-10.4); MONOCYTES # (AUTO) 0.7 X 10^3 (0.0-1.0); MONOCYTES % (AUTO) 10 % (0-12); NEUTROPHILS # (AUTO) 4.8 X 10^3 (1.8-7.8); NEUTROPHILS % (AUTO) 67 % (42-75); PLATELET COUNT 145 10^3/uL (130-400); RED BLOOD COUNT 2.89 10^6/uL (4.35-5.85); RED CELL DISTRIBUTION WIDTH 12.5 % (10.0-14.5); WHITE BLOOD COUNT 7.1 10^3/uL (4.3-11.0)
[2018-01-13 06:01] LABS: ALBUMIN 3.1 GM/DL (3.2-4.5); BILIRUBIN,TOTAL 0.7 MG/DL (0.1-1.0); CALCIUM 8.6 MG/DL (8.5-10.1); CREATININE SERUM 1.84 MG/DL (0.60-1.30); POTASSIUM 4.1 MMOL/L (3.6-5.0); TOTAL PROTEIN 5.7 GM/DL (6.4-8.2)
[2018-01-13] MEDS: inSUlin ASPART (NovoLOG) 1 UNIT/0.01 ML (CHARGE PER UNIT) SC SCH (06:36)
[2018-01-13] MEDS: BETHANECHOL 25 MG (URECHOLINE) TAB PO SCH (07:03)
[2018-01-13] MEDS: RT-ALBUTEROL SULF 2.5 MG/3 ML PRE-MIX VIAL INH SCH (07:42)
[2018-01-13 08:00] VITALS: BP 109/55
[2018-01-13] MEDS: CARVEDILOL 12.5 MG (COREG) TABLET PO SCH (08:33)
[2018-01-13] MEDS: POLYETHYLENE GLYCOL 17 GM (MIRALAX) PACK PO SCH (08:36)
[2018-01-13] MEDS: DOCUSATE SODIUM 100 MG (COLACE) CAP PO SCH (08:36)
[2018-01-13] MEDS: SENNA W/DOCUSATE (SENOKOT S) TABLET PO SCH (08:36)
[2018-01-13] MEDS ORDERED: FUROSEMIDE 20 MG (LASIX) TAB PO SCH (09:00)
[2018-01-13] MEDS ORDERED: CALCITRIOL 0.25 MCG (ROCALTROL) CAPSULE PO SCH (09:00)
[2018-01-13] MEDS ORDERED: lisINopril 10 MG (PRINIVIL) TABLET PO SCH (09:00)
[2018-01-13] MEDS ORDERED: ALLOPURINOL 300 MG (ZYLOPRIM) TAB PO SCH (09:00)
[2018-01-13] MEDS ORDERED: ASPIRIN E.C. 81 MG (ECOTRIN) TAB PO SCH (09:00)
[2018-01-13] MEDS ORDERED: FINASTERIDE (PROSCAR) 5 MG TAB PO SCH (09:00)
--- NOTE | 2018-01-13 10:47 | Discharge Summary-Hospitalist ---
Diagnosis/Chief Complaint Date of Admission Jan 11, 2018 at 17:12 Date of Discharge Discharge Date: Jan 13, 2018 Admission Diagnosis Delirium severe Acute on CRF Plan: HLIVF after Banana Bag completed Percocet pain meds BM regimen Maintain bernstein catheter Urinary retention meds in meantime Discharge Diagnosis (1) Acute delirium Status: Resolved (2) Renal failure (ARF), acute on chronic Status: Acute (3) Fusion of lumbar spine Status: Acute Assessment & Plan: POD # 3 (4) CKD (chronic kidney disease) Status: Chronic (5) Essential (primary) hypertension Status: Chronic (6) Normocytic anemia Status: Chronic (7) Hyperlipidemia Status: Chronic (8) Insulin dependent diabetes mellitus Status: Chronic (9) Constipation Status: Acute Discharge Summary Discharge Physical Exam Allergies: Coded Allergies: Penicillins (Verified Allergy, Unknown, 01/11/18) Vitals & I&Os Vital Signs Date Time Temp Pulse Resp B/P (MAP) Pulse Ox O2 Delivery O2 Flow Rate FiO2 01/13/18 10:52 01/13/18 08:00 98.2 67 16 95 Room Air General Appearance: Alert, Oriented X3, Cooperative Respiratory: Clear to Auscultation, Normal Air Movement Neuro: Normal Gait, Normal Speech, Strength at 5/5 X4 Ext Psych/Mental Status: Mental Status NL, Mood NL Hospital Course Hospital course: Patient had a very short but complex hospital course. He was directly admitted from [facility] [place] from [place] for acute delirium and acute on chronic renal insufficiency. He was ruled out for sepsis and alcohol withdraw and patient was given Haldol and Ativan as needed for agitation. Labs were monitored closely after IV fluid resuscitation and creatinine returned back to baseline actually improved at 1.9. Pain was controlled with Percocet and delirium resolved quickly. Labs (last 24 hrs) Laboratory Tests 01/13/18 05:15: White Blood Count 7.1, Red Blood Count 2.89L, Hemoglobin 9.6L, Hematocrit 28L, Mean Corpuscular Volume 97, Mean Corpuscular Hemoglobin 33, Mean Corpuscular Hemoglobin Concent 34, Red Cell Distribution Width 12.5, Platelet Count 145, Mean Platelet Volume 11.3H, Neutrophils (%) (Auto) 67, Lymphocytes (%) (Auto) 20 , Monocytes (%) (Auto) 10, Eosinophils (%) (Auto) 3, Basophils (%) (Auto) 0, Neutrophils # (Auto) 4.8, Lymphocytes # (Auto) 1.4, Monocytes # (Auto) 0.7, Eosinophils # (Auto) 0.2, Basophils # (Auto) 0.0, Sodium Level 139, Potassium Level 4.1, Chloride Level 110H, Carbon Dioxide Level 21, Anion Gap 8, Blood Urea Nitrogen 29H, Creatinine 1.84H, Estimat Glomerular Filtration Rate 36, BUN/ Creatinine Ratio 16, Glucose Level 135H, Calcium Level 8.6, Total Bilirubin 0.7 , Aspartate Amino Transf (AST/SGOT) 17, Alanine Aminotransferase (ALT/SGPT) 12, Alkaline Phosphatase 48, Total Protein 5.7L, Albumin 3.1L 01/13/18 05:16: Glucometer 132H 01/13/18 11:01: Glucometer 95 Microbiology 01/11/18 Blood Culture - Preliminary, Resulted No growth Patient resulted labs reviewed. Pending Labs Discussion & Recommendations Discharge Planning: <30 minutes discharge planning Discharge Home Medications: Active Scripts Active Reported Diclofenac Sodium 100 Gm Gel..gram. TOP QID PRN Epinephrine 0.3 Mg/0.3 Ml Auto.injct 0.3 Mg INJ UD PRN Glucagon Emergency Kit (Glucagon,Human Recombinant) 1 Mg/Kit Soln INJ UD PRN Tamsulosin HCl 0.4 Mg Cap.er.24h 0.4 Mg PO 1730 Gabapentin 100 Mg Capsule 100 Mg PO HS TAKES ALONG WITH 300MG CAPSULES FOR A TOTAL DOSE OF 400MG Doxazosin Mesylate 2 Mg Tablet 2 Mg PO BID Allopurinol 300 Mg Tablet 300 Mg PO DAILY Calcitriol 0.25 Mcg Capsule 0.25 Mcg PO Q48H Lisinopril 10 Mg Tablet 10 Mg PO DAILY Tizanidine HCl 4 Mg Tablet 4 Mg PO TID PRN Tresiba Flextouch U-200 (Insulin Degludec) 200 Unit/1 Ml Insuln.pen 54 Units SC HS Novolog Flexpen (Insulin Aspart) 300 Units/3 Ml Solution 5-15 Units SC AC Finasteride 5 Mg Tablet 5 Mg PO DAILY Hydrocodon-Acetaminophn 10-325 (Hydrocodone/Acetaminophen) 1 Each Tablet 1 Tab PO BID PRN Acetaminophen 325 Mg Tablet 650 Mg PO DAILY PRN TAKES 2 (325 MG) TABLETS Lovastatin 10 Mg Tablet 10 Mg PO HS Furosemide 20 Mg Tablet 20 Mg PO DAILY Colestipol HCl 1 Gm Tablet 2 Gm PO BID PRN TAKES 2 (1 GM) TABLETS Vitamin D3 (Cholecalciferol (Vitamin D3)) 2,000 Unit Capsule 2,000 Unit PO DAILY Carvedilol 25 Mg Tablet 25 Mg PO BID Aspirin EC (Aspirin) 81 Mg Tablet.dr 81 Mg PO DAILY Tramadol HCl 50 Mg Tablet 100 Mg PO Q6H PRN Omeprazole 20 Mg Capsule.dr 20 Mg PO BID PRN Gabapentin 300 Mg Capsule 300 Mg PO HS TAKES ALONG WITH 100MG CAPSULE FOR A TOTAL DOSE OF 400MG Diphenoxylate-Atrop 2.5-0.025 (Diphenoxylate HCl/Atropine) 1 Each Tablet 1 Tab PO BID PRN Amlodipine Besylate 10 Mg Tablet 10 Mg PO HS Chlorthalidone 25 Mg Tablet 25 Mg PO HS Instructions to patient/family Please see electronic discharge instructions given to patient. Clinical Quality Measures DVT/VTE Risk/Contraindication: Risk Factor Score Per Nursin RFS Level Per Nursing on Admit: 4+=Very High Contraindications-Pharm: Other *list below* Other: recent spine surgery Problem Qualifiers (1) Renal failure (ARF), acute on chronic: Chronic kidney disease stage: stage 4 (severe) (2) CKD (chronic kidney disease): Chronic kidney disease stage: stage 4 (severe) Qualified Codes: N18.4 - Chronic kidney disease, stage 4 (severe) (3) Constipation: Constipation type: drug induced constipation Qualified Codes: K59.03 - Drug induced constipation GARRICK MCKEON DO Jan 13, 2018 10:47
== END 2018-01-13 10:52 | DRG 684 ==
LOC: 4TH 17:12
PROVIDERS: ADMIT Internal Medicine; ATTEND Internal Medicine
DX: N17.9 Acute kidney failure, unspecified (principal); I12.9 Hypertensive chronic kidney disease with stage 1 through stage 4 chronic kidney disease, or unspecified chronic kidney disease; N18.4 Chronic kidney disease, stage 4 (severe); R41.0 Disorientation, unspecified; K59.03 Drug induced constipation; E11.9 Type 2 diabetes mellitus without complications; Z79.4 Long term (current) use of insulin; K21.9 Gastro-esophageal reflux disease without esophagitis; D64.9 Anemia, unspecified; E78.5 Hyperlipidemia, unspecified; Z98.1 Arthrodesis status; Z87.891 Personal history of nicotine dependence
CPT/HCPCS: 36415; 36600; 70450; 71045; 80053; 81000; 82805; 82962; 83605; 83880; 84484; 85025; 87040; 93005; 93306; 94640; 94760

== ENCOUNTER 2018-01-13 10:12 | Inpatient (IN) | payer MEDICARE, OTHER ==
[~2018-01-13] VITALS: Ht 175.3 cm; Wt 88.5 kg
[~2018-01-13 10:12] MED LIST changes: +ALLO300T2 PO; +CALC0.253 PO; +DICL100G31 TOP; +DOXA2TAB2 PO; +EPIN0.3P18 INJ; +FINA5TAB6 PO; +GLUC1KIT INJ; +INSU100I14 SC; +INSU200I4 SC; +LISI10TA2 PO; +TAMS0.4C2 PO; +TIZA4TAB3 PO
--- NOTE | 2018-01-13 11:41 | Physical Therapy Evaluation ---
PT Evaluation-General Medical Diagnosis Admission Date Jan 13, 2018 at 11:00 Medical Diagnosis: lumbar spine surgery Onset Date: Jan 11, 2018 Therapy Diagnosis Therapy Diagnosis: impaired mobility, strength, endurance Height/Weight Height (Feet): 5 Height (Inches): 5.00 Weight (Pounds): 200 Weight (Ounces): 0.0 Referral Physician: Praveen Reason for Referral: Evaluation/Treatment Medical History Pertinent Medical History: Arthritis, DM, GERD, HTN, Neuropathy, Renal Insufficiency Additional Medical History Past Medical History Surgeries: Orthopedic Respiratory: Sleep Apnea Currently Using CPAP: No Currently Using BIPAP: No Cardiac: High Cholesterol, Hypertension Neurological: Neuropathy Genitourinary: Prostate Problems, Renal Failure Gastrointestinal: Gastroesophageal Reflux, Chronic Constipation Musculoskeletal: Arthritis, Back Injury, Chronic Back Pain, Spasms Endocrine: Diabetes, Insulin dep Reviewed History: Yes Social History Home: Single Level Current Living Status: Other Family Entry Into Home: Stairs With Railing PT Steps Into Home: 3 Prior/Core FIM Prior Level of Function Functional [place] Measure 0=Not Assessed/NA 4=Minimal Assistance 1=Total Assistance 5=Supervision or Setup 2=Maximal Assistance 6=Modified [place] 3=Moderate Assistance 7=Complete [place] Bed Mobility: 7 Transfers (B,C,W/C) (FIM): 7 Gait: 7 PT Evaluation-Current Subjective Patient in bed pre tx, agrees to PT, has pain of 8/10 in low back. Patient is being transferred to rehab this morning. Pt/Family Goals to be independent at home Objective Patient Orientation: Person, Place, Situation TLSO - to be worn when out of bed ROM/Strength ROM Lower Extremities WNL Strenght Lower Extremities 4+/5 gross bilateral lower extremities Neuromuscular (Tone, Coordination, Reflexes) NT Sensory Vision: Functional Hearing: Functional Sensation Right Lower Extremit: Intact Sensation Left Lower Extremity: Intact Sensation Lower Extremities Patient states he does have occasional numbness and tingling in his legs, worse on the left side Transfers Functional [place] Measure 0=Not Assessed/NA 4=Minimal Assistance 1=Total Assistance 5=Supervision or Setup 2=Maximal Assistance 6=Modified [place] 3=Moderate Assistance 7=Complete IndependenceIRFPAI Quality Coding Scale 6 Independent with activity with or without an assistive device 5 Patient requires set up or clean up by helper. Patient completes activity by themselves 4 Supervision or touching assist (CGA). [place] provide cues , steadying assist 3 The helper provides less than half the effort to complete the activity 2 The helper provides more than half the effort to complete the activity 1 Dependent. The helper does all the effort to complete an activity 7 Patient refused to complete or attempt activity 9 The patient did not perform the activity before the current illness or injury 88 Not attempted due to Medical conditions or safety concerns Transfers (B, C, W/C) (FIM): 4 Scootin Rollin Roll Left to Right (QC): 4 Supine to/from Sit: 4 Sit to/from Stand: 4 bed t/f WC(FIM only if WC use): 4 Sit to Lying (QC): 3 Lying to Sitting/Side of Bed(Q: 3 Sit to Stand (QC): 4 Chair/Uzw-wt-Mysko Xfer(QC): 4 Car Transfer (QC): 4 Patient performs bed mobility with SBA, supine <-> sit min assist, stand pivot transfers CGA, car transfer CGA Gait Does the Patient Walk?: Yes Mode of Locomotion: Walk Anticipated Mode of Locomotion: Walk Gait (FIM): 4 Walk 10 feet (QC): 4 Walk 50 ft with 2 Turns(QC): 4 Walk 150 ft (QC): 4 Walking 10ft/uneven surface-QC: 4 Distance: 250' Gait Level of Assist: 4 Gait Persons Needed: 1 Gait Assistive Device: FWW Comments/Gait Description Patient can ambulate 250' with a rolling walker with CGA, including 50' with at least 2 turns of 90 degrees and 10' over an uneven surface. Patient ambulates antalgic and very slow but steady. Wheelchair Training Does the Pt Use a Wheelchair?: No Stairs Stairs (FIM): 2 #of Steps: 4 Level of Assist: 4 1 Step (curb) (QC): 4 4 Steps (QC): 4 Patient can go up and down 4 steps using 2 handrails with CGA, cues for safety and foot placement. Balance Sitting Static: Good Sitting Dynamic: Good Standing Static: Good Standing Dynamic: Good Treatment NuStep for 15 min level 5, seated AP and hip flexion x20, LAQ alternating for 5 min Assessment/Needs Patient has impaired mobility, strength, endurance post lumbar spine surgery. He has to wear a TLSO when out of bed. Rehab Potential: Fair PT Short Term Goals Short Term Goals Time Frame: Jan 20, 2018 Transfers (B,C,W/C) (FIM): 5 Gait (FIM): 5 Gait Distance Comment: 300' Gait Level of Assist: 5 Gait Assistive Device: FWW PT Shelter Goals Shelter Goals PT Shelter Goals Time Frame: Feb 03, 2018 Transfers (B,C,W/C) (FIM): 6 Sit to Lying (QC): 6 Lying-Sitting on Side/Bed(QC): 6 Sit to Stand (QC): 6 Rollin Roll Left to Right (QC): 6 Chair/Exj-xd-Xxqld Xfer(QC): 6 Car Transfer (QC): 6 Gait (FIM): 6 Distance: 400' Walk 10 feet (QC): 6 Walk 10ft-Uneven Surface(QC): 6 Walk 50ft with 2 Turns (QC): 6 Walk 150 ft (QC): 6 Gait Level of Assist: 6 Gait Assistive Device: FWW Stairs (FIM): 5 # of Steps: 12 1 Step (curb) (QC): 4 4 Steps (QC): 4 12 Steps (QC): 4 Stairs Level Of Assist: 5 PT Plan Problem List Problem List: Activity Tolerance, Functional Strength, Safety, Balance, Gait, Transfer, Bed Mobility Treatment/Plan Treatment Plan: Continue Plan of Care Treatment Plan: Bed Mobility, Education, Functional Activity Cristal, Functional Strength, Group Therapy, Gait, Safety, Therapeutic Exercise, Transfers Treatment Duration: Feb 03, 2018 Frequency: At least 5 of 7 days/Wk (IRF) Estimated Hrs Per Day: 1.5 hours per day Patient and/or Family Agrees t: Yes Safety Risks/Education Patient Education: Gait Training, Transfer Techniques, Steps, Correct Positioning, Safety Issues Teaching Recipient: Patient Teaching Methods: Demonstration, Discussion Response to Teaching: Reinforcement Needed Discharge Recommendations Plan Patient will perform bed mobility and transfer training, balance and endurance training, functional strengthening, stair training, gait training, and education , to improve functional mobility and independence at home. Therapy D/C Recommendations: Home w/ Family Support Time/GCodes Time In: 1045 Time Out: 1130 Total Billed Treatment Time: 45 Total Billed Treatment 1 visit EVM 15' GT 15' EX 15' DESIREE REZA PT Jan 13, 2018 11:41
[2018-01-13 12:00] VITALS: BP 103/65
[2018-01-13] MEDS ORDERED: ACETAMINOPHEN 500 MG TAB (TYLENOL) PO PRN (12:00)
[2018-01-13] MEDS ORDERED: PATIENT MAY USE OWN MED,SINGLE MED PO SCH ×2 (12:00→14:15)
[2018-01-13] MEDS ORDERED: PANTOPRAZOLE 20 MG TABLET (PROTONIX) PO PRN (12:00)
--- NOTE | 2018-01-13 12:16 | PM&R Post Admission Assessment ---
Post Admission Physician Asses Date seen by provider: Jan 13, 2018 Time seen by provider: 11:45 The preadmission screen agrees with the post admission assessment that the patient is a good candidate for inpatient rehabilitation. The patient will have a comprehensive program of inpatient rehabilitation with a goal of maximizing level of functional independence prior to discharge home with family. The patient will have PT/OT ninety minutes per day, each discipline, five days a week for 2 weeks for gait, strengthening, conditioning, balance, ADLs, any patient/family/caregiver training as necessary. Speech therapy to do cognitive assessment and treat as indicated. Rehabilitation nursing to assist with bowel, bladder, skin, wound care, medication administration, pain management. Cctv Technician to assist with discharge planning, community reentry. SCD's for DVT prophylaxis. He appears to be well motivated to participate in three hours of therapy a day. He should be able to tolerate three hours of therapy a day from a medical and surgical standpoint. He should benefit from the three hours of therapy a day. He has a reasonable discharge plan, reasonable discharge rehabilitation goals and a supportive family. He has various comorbidities that need to be closely monitored with medications and treatments adjusted on a daily basis as needed. These include: Postop nausea and emesis Postop urinary retention DM HTn GERD Chronic constipation Barriers to discharge for this patient who had been independent prior to this are for him to be modified independent to supervision for ADLs and mobility skills prior to discharge home with family, so as to lessen the burden of the caregivers. Risks for this patient include: 1. Fall 2. Fracture 3. DVT 4. Pulmonary embolism 5. Wound infection 6. Skin breakdown 7. Contractures 8. Poorly controlled pain 9. Urinary retention 10. UTI 11. Respiratory infection 12. Aspiration 13. Poorly controlled DM 14. Poorly controlled HTN Estimated Length of Stay: 10 days Prognosis: Rehab prognosis appears good for goal of discharge home with family modified independent to supervision for ADLs and mobility skills. General: Alert, Oriented X3, Cooperative, No Acute Distress HEENT: Atraumatic, PERRLA, EOMI, Mucous Memb Moist/[place] Neck: Supple, No JVD Lungs: Clear to Auscultation Heart: Regular Rate Abdomen: Normal Bowel Sounds, Soft, Other (mild tenderness Lumbar corset in place) Extremities: No Edema Neuro: Other (sensation intact Strength 4+/5) YOBANY RIOJAS MD Jan 13, 2018 12:16
--- NOTE | 2018-01-13 12:37 | HISTORY AND PHYSICAL ---
DATE OF SERVICE: 01/13/2018 CHIEF COMPLAINT: Difficulty with walking. 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 The patient postoperatively had urinary retention and confusion. The patient was transferred to [facility] by Dr. Varghese, hospitalist,and was seen in consultation by Cardiology. Medications were adjusted. The patient had catheter placed for urinary retention, is now voiding on medication. He remains with some nausea and emesis. Zofran is ordered. Currently, he is min assist for transfers and gait with walker. Reports decreased pain in the lumbar spine. Postoperatively, he is wearing a lumbar brace postoperatively. He is min assist for dressing, bathing and toileting. He lives in a single level home with family. PAST MEDICAL HISTORY: Original spine surgery done with Dr. Sanchez in [place], [place]. Then he had redo surgery at [facility] with Dr. Elizabeth about a year ago, then redo surgery for failed low back surgery on 01/09/2018. History of diabetes mellitus, GERD, hypertension, diabetic peripheral neuropathy. History of chronic back pain and chronic constipation. PAST SURGICAL HISTORY: As per above. ALLERGIES: PENICILLIN. FAMILY HISTORY: Noncontributory. 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 MEDICATIONS: 1. Allopurinol 300 mg p.o. daily. 2. ASA 81 mg p.o. every day. 3. Proscar 5 mg p.o. daily 4. Furosemide 20 mg p.o. daily 5. Lisinopril 10 mg p.o. daily. 6. Coreg 25 mg p.o. b.i.d. 7. Colace 100 mg p.o. b.i.d. 8. MiraLax 34 grams p.o. b.i.d. 9. Senokot-S 1 tablet p.o. b.i.d. 10. Simvastatin 5 mg p.o. at bedtime. 11. Norvasc 10 mg p.o. at bedtime 12. Gabapentin 400 mg p.o. at bedtime 13. Flomax 0.4 mg p.o. daily. 14. Bethanechol 25 mg p.o. q.i.d. a.c. and at bedtime 15. Insulin sliding scale regimen A. 16. Tylenol 500 mg p.o. q.4 hours p.r.n. mild pain 17. Protonix 20 mg p.o. b.i.d. p.r.n. heartburn. 18. Percocet generic 10/325 2 tablets p.o. q.4 hours p.r.n. moderate pain. 19. Zanaflex 4 mg p.o. t.i.d. p.r.n. muscle spasm. PHYSICAL EXAMINATION: GENERAL: Significant for a pleasant male sitting up in chair, alert and oriented with some nausea and recent emesis. VITAL SIGNS: Within normal limits. He is afebrile. HEENT: Vision, speech, hearing grossly intact. No oral lesion is noted. NECK: Supple without mass. HEART: Regular rhythm. CHEST: Clear. ABDOMEN: Soft only mild tenderness. Bowel sounds present. EXTREMITIES: No leg edema. No calf tenderness. MUSCULOSKELETAL: The patient has functional active range of motion in all 4 limbs. He has a lumbar brace in place. NEUROLOGIC: Cognition grossly intact. Sensation intact to light touch. Strength 4+/5 in all 4 limbs. IMPRESSION: 1. Failed low back syndrome, status post redo surgery, Dr. Alcantara on 01/09/2018 at [facility] in [place], [place]. 2. Chronic constipation. 3. Postop nausea and emesis, treat. 4. Chronic constipation, on meds. 5. Postoperative urinary retention, improved with meds. Monitor for urinary retention. 6. Diabetes mellitus, controlled with medication. 7. Hypertension, controlled with medication. 8. Gastroesophageal reflux disease, on medication. PLAN: The patient will have a comprehensive program of inpatient rehabilitation with goal of maximizing level of functional independence prior to discharge home with family. The patient will have PT and OT daily 5 days a week for 10 days. Please see post-admission physician evaluation, which is a separate document for details of plan of care. Speech therapy to assess cognition and treat as indicated. Rehabilitation nursing to assist with bowel, bladder, skin, wound care, medication administration, pain management and sr. social media & mobile manager with discharge planning, community reentry. Follow up with Dr. Varghese as per her schedule. Follow up with spine surgery as per their schedule. Treat nausea. Monitor for any further urinary retention, nausea, emesis or obstipation. Monitor Accu-Cheks and adjust medications as necessary.Continue with lumbar brace. ESTIMATED LENGTH OF STAY: 10 days. PROGNOSIS: Rehab prognosis appears good for goal of discharging home with family, modified independent to supervision for ADLs and mobility skills. DIET: Carb consistent. CODE STATUS: Full code. Job ID: [id number] DocumentID: [id number] Dictated Date: 01/13/2018 12:11:03 Concierge Date: 01/13/2018 12:36:55 Dictated By: YOBANY RIOJAS MD MTDD
--- NOTE | 2018-01-13 13:48 | Occupational Therapy Eval ---
OT Evaluation-General/PLF Medical Diagnosis Admission Date Jan 13, 2018 at 11:00 Medical Diagnosis: lumbar spine surgery Onset Date: Jan 11, 2018 Therapy Diagnosis Therapy Diagnosis: Weakness Height/Weight Height (Feet): 5 Height (Inches): 5.00 Weight (Pounds): 200 Weight (Ounces): 0.0 Weight Bear Status Weight Bearing Restriction: Weight Bearing/Tolerated Back precautions/lumbar brace. Referral Physician: Praveen Referral Reason: Activity Tolerance, Self Care, Evaluation/Treatment, Strengthening/ROM Medical History Pertinent Medical History: Arthritis, DM, GERD, HTN, Neuropathy, Renal Insufficiency Additional Medical History Pt. has had multiple back surgeries and pain stimulator. Current History Pt. had third back surgery for Lower spine. Reviewed History: Yes Social History Home: Single Level Current Living Status: Alone Entry Into Home: Stairs With Railing Steps Into Home: 3 ADL-Prior Level of Function ADL PLOF Comments Pt. was independent until he started to have increased back pain after last surgery, approximately one year ago. Began to use his cane again, as he had not been using any assistive device. Was independent with daily tasks such as bathing and dressing. DME/Equipment: Tub/Shower DME/Equipment Comments Pt. has a walker at home but no other equipment. 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 does not report pain, but becomes nauseated and vomits in room in bucket. Nursing notified. Appearance Pt. up in chair in gym. Agrees to ambulate back to room. Mental Status/Objective Patient Orientation: Person, Place, Time, Situation Current Glasses/Contacts: Yes Upper Extremity ROM WFL ADL-Treatment Functional [place] Measure 0=Not Assessed/NA 4=Minimal Assistance 1=Total Assistance 5=Supervision or Setup 2=Maximal Assistance 6=Modified [place] 3=Moderate Assistance 7=Complete IndependenceIRFPAI Quality Coding Scale 6 Independent with activity with or without an assistive device 5 Patient requires set up or clean up by helper. Patient completes activity by themselves 4 Supervision or touching assist (CGA). [place] provide cues , steadying assist 3 The helper provides less than half the effort to complete the activity 2 The helper provides more than half the effort to complete the activity 1 Dependent. The helper does all the effort to complete an activity 7 Patient refused to complete or attempt activity 9 The patient did not perform the activity before the current illness or injury 88 Not attempted due to Medical conditions or safety concerns Upper Body Dressing (FIM): 5 (Pt. able to remove and don back brace with SBA.) Upper Body Dressing (QC): 4 Transfers (B, C, W/C) (FIM): 5 (SBA to ambulate with walker to room.) Education OT Patient Education: Correct positioning, Modified ADL techniques, Progress toward Goal/Update tx plan, Purpose of tx/functional activities, Reviewed precautions, Rehab process, Transfer techniques Teaching Recipient: Patient Teaching Methods: Demonstration, Discussion Response to Teaching: Verbalize Understanding, Return Demonstration OT Short Term Goals Short Term Goals Transfers (B,C,W/C) (FIM): 5 1=Demonstrate adherence to instructed precautions during ADL tasks. 2=Patient will verbalize/demonstrate understanding of assistive devices/ modifications for ADL. 3=Patient will improve strength/tolerance for activity to enable patient to perform ADL's. OT Fdc Goals Fdc Goals Time Frame: Jan 27, 2018 Eating (FIM): 6 Eating (QC): 6 Groomin Oral Hygiene (QC): 6 Bathing(FIM): 5 Shower/Bathe Self (QC): 5 Upper Body Dressing(FIM): 6 Upper Body Dressing (QC): 6 Lower Body Dressing(FIM): 6 Lower Body Dressing (QC): 6 On/Off Footwear (QC): 6 Toileting(FIM): 6 Toileting Hygiene (QC): 6 Transfers (B,C,W/C) (FIM): 6 Toilet/Commode Transfer(FIM): 6 Toilet/Commode Transfer (QC): 6 Shower Transfer(FIM): 5 Additional Goals: 1-Demonstrate ADL Tasks, 2-Verbalize Understanding, 3- ImproveStrength/Cristal 1=Demonstrate adherence to instructed precautions during ADL tasks. 2=Patient will verbalize/demonstrate understanding of assistive devices/ modifications for ADL. 3=Patient will improve strength/tolerance for activity to enable patient to perform ADL's. OT Education/Plan Problem List/Assessment Assessment: Decreased Activ Tolerance, Impaired I ADL's, Impaired Self-Care Skills Discharge Recommendations Plan/Recommendations: Continue POC Therapy D/C Recommendations: Home Independently, Occupational Therapy Home Care Equpiment Recommendations-D/C: Bath Chair, Hip Kit Treatment Plan/Plan of Care Treatment,Training & Education: Yes Patient would benefit from OT for education, treatment and training to promote independence in ADL's, mobility, safety and/or upper extremity function for ADL' s. Plan of Care: ADL Retraining, Functional Mobility, Group Exercise/Act as Ind, UE Funct Exercise/Act Treatment Duration: Jan 27, 2018 Frequency: At least 5 of 7 days/Wk (IRF) Estimated Hrs Per Day: 1.5 hours per day Agreement: Yes Rehab Potential: Good Time/GCodes Start Time: 11:30 Stop Time: 11:55 Total Time Billed (hr/min): 25 Billed Treatment Time 1, EVM x 10minutes, FA x 15minutes DEVAUGHN GUTIERREZ OT Jan 13, 2018 13:48
--- NOTE | 2018-01-13 15:04 | Therapy Group Daily Note ---
Therapy Daily Group Note Patient Education Topic Other List Below (Memory:long and short term and strategies for recall) Exercises LE Seated Exercise, UE Exercise Other/Notes Pt. participated in group PT OT session this date. Pt. ambulated to from with FWW and SBA. Pts. were educated/reviewed on ARU practices and expectations. Education regarding long and short term memory was done and patients all shared their most significant memory of a historical event. Pts. all participated in seated U&L extremity exercises. A fun, engaging memory activity was enjoyed by all whereby memorizing and matching images was the focus. The importance of sleep and good rest habits was also a topic of education . Pt. to room after Rx with assist for toileting, in bed after with lyon at hand. Start Time: 13:00 Stop Time: 14:30 Total Billed Treatment Time: 90 Total Billed Treatment 1,GRP BENNY WONG SYNTHETIC GEM PRESS OPERATOR Jan 13, 2018 15:04
--- NOTE | 2018-01-13 15:32 | Occupational Ther Daily Note ---
OT Current Status-Daily Note Subjective No pain reported. Appearance Pt. is up in chair. Agrees to work with OT. Mental Status/Objective Patient Orientation: Person, Place, Time, Situation Functional [place] Measure 0=Not Assessed/NA 4=Minimal Assistance 1=Total Assistance 5=Supervision or Setup 2=Maximal Assistance 6=Modified [place] 3=Moderate Assistance 7=Complete [place] ADL-Treatment Functional [place] Measure 0=Not Assessed/NA 4=Minimal Assistance 1=Total Assistance 5=Supervision or Setup 2=Maximal Assistance 6=Modified [place] 3=Moderate Assistance 7=Complete IndependenceIRFPAI Quality Coding Scale 6 Independent with activity with or without an assistive device 5 Patient requires set up or clean up by helper. Patient completes activity by themselves 4 Supervision or touching assist (CGA). [place] provide cues , steadying assist 3 The helper provides less than half the effort to complete the activity 2 The helper provides more than half the effort to complete the activity 1 Dependent. The helper does all the effort to complete an activity 7 Patient refused to complete or attempt activity 9 The patient did not perform the activity before the current illness or injury 88 Not attempted due to Medical conditions or safety concerns Eating (FIM): 6 Eating (QC): 6 Grooming (FIM): 5 (SBA) Oral Hygiene (QC): 4 Bathing (FIM): 5 Shower/Bathe Self (QC): 5 Upper Body (FIM): 5 Upper Body Dressing (QC): 5 Lower Body Dressing (FIM): 5 Lower Body Dressing (QC): 5 On/Off Footwear (QC): 5 Transfers (B, C, W/C) (FIM): 5 Toilet/Commode Transfer (FIM): 5 Toilet Transfer (QC): 5 Shower Transfer(FIM): 5 Education OT Patient Education: Correct positioning, Modified ADL techniques, Progress toward Goal/Update tx plan, Purpose of tx/functional activities, Reviewed precautions, Rehab process, Transfer techniques Teaching Recipient: Patient Teaching Methods: Demonstration, Discussion Response to Teaching: Verbalize Understanding, Return Demonstration OT Short Term Goals Short Term Goals Transfers (B,C,W/C) (FIM): 5 1=Demonstrate adherence to instructed precautions during ADL tasks. 2=Patient will verbalize/demonstrate understanding of assistive devices/ modifications for ADL. 3=Patient will improve strength/tolerance for activity to enable patient to perform ADL's. OT Intermediate Goals Polymerization Oven Tender Goals Time Frame: Jan 27, 2018 Eating (FIM): 6 Eating (QC): 6 Groomin Oral Hygiene (QC): 6 Bathing(FIM): 5 Shower/Bathe Self (QC): 5 Upper Body Dressing(FIM): 6 Upper Body Dressing (QC): 6 Lower Body Dressing(FIM): 6 Lower Body Dressing (QC): 6 On/Off Footwear (QC): 6 Toileting(FIM): 6 Toileting Hygiene (QC): 6 Transfers (B,C,W/C) (FIM): 6 Toilet/Commode Transfer(FIM): 6 Toilet/Commode Transfer (QC): 6 Shower Transfer(FIM): 5 Additional Goals: 1-Demonstrate ADL Tasks, 2-Verbalize Understanding, 3- ImproveStrength/Cristal 1=Demonstrate adherence to instructed precautions during ADL tasks. 2=Patient will verbalize/demonstrate understanding of assistive devices/ modifications for ADL. 3=Patient will improve strength/tolerance for activity to enable patient to perform ADL's. OT Education/Plan Problem List/Assessment Assessment: Decreased Activ Tolerance, Impaired I ADL's, Impaired Self-Care Skills Discharge Recommendations Plan/Recommendations: Continue POC Therapy D/C Recommendations: Home Independently, Occupational Therapy Home Care Treatment Plan/Plan of Care Treatment,Training & Education: Yes Patient would benefit from OT for education, treatment and training to promote independence in ADL's, mobility, safety and/or upper extremity function for ADL' s. Plan of Care: ADL Retraining, Functional Mobility, Group Exercise/Act as Ind, UE Funct Exercise/Act Treatment Duration: Jan 27, 2018 Frequency: At least 5 of 7 days/Wk (IRF) Estimated Hrs Per Day: 1.5 hours per day Agreement: Yes Rehab Potential: Good Time/GCodes Start Time: 14:40 Stop Time: 15:25 Total Time Billed (hr/min): 35 Billed Treatment Time 1, ADL x 2 DEVAUGHN GUTIERREZ OT Jan 13, 2018 15:32
[2018-01-13] MEDS ORDERED: CATHETER FLUSH 10 ML SYR IV PRN (15:45)
[2018-01-13] MEDS: RT-ALBUTEROL SULF 2.5 MG/3 ML PRE-MIX VIAL INH SCH ×2 (15:55→19:22)
--- NOTE | 2018-01-13 16:07 | ST Cognitive Linguistic Eval ---
Speech Evaluation-General Medical Diagnosis lumbar spine surgery Onset Date: Jan 11, 2018 Therapy Diagnosis Therapy Diagnosis: Cognition Precautions Precautions/Isolations: Fall Prevention, Standard Precautions Referral Referring Physician: Dr. Morton Reason for Referral: Evaluation/Treatment Medical History Pertinent Medical History: Arthritis, DM, GERD, HTN, Neuropathy, Renal Insufficiency Current History lumbar spine surgery Reviewed History: Yes Social History Current Living Status: Alone Speech PLF-Current Status Prior Level of Function independent Subjective Pt pleasant and cooperative. Language Eval: Auditory Comprehends Simple Yes/No Ques: Functional Follows 1-Step Commands: Functional Follows Complex Directions: Functional Follows General Conversations: Functional Language Eval: Verbal Language Completes Spontaneous Greeting: Functional Requests Basic Needs: Functional States Basic Personal Info: Functional Expresses Complex Ideas: Functional Language Evaluation: Reading NT Cognitive Patient Orientation oriented x3 Objective Cognitive Domain Attention: WNL Memory: WNL Problem Solving: Functional Objective Impression The MAR was administered to assess cognitive-linguistic functioning. Results are as follows: Memory 3 word recall immediate 3/3; delayed 3/3 and remote delayed 3/3. Sequencing/organization 3/3 Problem Solving: simple 4/4 Abstract/complex: 2/2 Comparisons 4/4. Speech/language WNL. Communication/Social Cognition Comprehension: 7 Expression: 7 Social Interaction: 7 Problem Solvin Memory: 7 Speech Patient Assess Expression of Ideas/Wants: Expression (4) Understanding Verbal Content: Understands (4) Brief Interview-Mental Status: Yes Repetition of Three Words: Three (3) Temporal Orientation: Year: Correct (3) Temporal Orientation: Month: Accurate within 5 days(2) Temporal Orientation: Day: Correct (1) Recall : Wear to say "Sock": Yes, no cue required (2) Recall : Color: Yes, no cue required (2) Recall : Bed: Yes, no cue required (2) Speech Short Term Goals Short Term Goals Short Term Goals no STGs established as skilled ST not indicated at this time. Speech Reliability Specialist Goals Nursing Home Goals No LTGs established as skilled ST not indicated. Speech-Plan Patient/Family Goals Patient/Family Goals: to return home Treatment Plan Speech Therapy Treatment Plan: Modify Plan, See Comments (no ST indicated) no skilled ST indicated Frequency: Modified Program (IRF) (0) Estimated Hrs Per Day: Other (0) Rehab Potential: Good Pt/Family Agrees to Plan: Yes Safety Risks/Education Teaching Recipient: Patient Teaching Methods: Discussion Response to Teaching: Verbalize Understanding Time Speech Therapy Time In: 14:30 Speech Therapy Time Out: 14:45 Total Billed Time: 15 Billed Treatment Time 1, SPSNDCOMP LADAN Cantor Jan 13, 2018 16:07
[2018-01-13] MEDS: BETHANECHOL 25 MG (URECHOLINE) TAB PO SCH ×2 (16:14→21:17)
[2018-01-13] MEDS: inSUlin ASPART (NovoLOG) 1 UNIT/0.01 ML (CHARGE PER UNIT) SC SCH ×2 (16:14→21:21)
[2018-01-13] MEDS: oxyCODONE/APAP 10/325MG (PERCOCET 10) TABLET PO PRN (16:18)
[2018-01-13 17:45] VITALS: BP 92/57
[2018-01-13] MEDS: TAMSULOSIN 0.4 MG (FLOMAX) CAP PO SCH (18:29)
[2018-01-13 18:30] VITALS: BP 125/68
[2018-01-13] MEDS ORDERED: GABAPENTIN 400 MG (NEURONTIN) CAP PO ONE (21:00)
[2018-01-13] MEDS: amLODIPine 10 MG (NORVASC) TAB PO SCH (21:17)
[2018-01-13] MEDS: CARVEDILOL 12.5 MG (COREG) TABLET PO SCH (21:17)
[2018-01-13] MEDS: SIMvastatin 10 MG (ZOCOR) TAB PO SCH (21:17)
[2018-01-13] MEDS: DOCUSATE SODIUM 100 MG (COLACE) CAP PO SCH (21:20)
[2018-01-13] MEDS: POLYETHYLENE GLYCOL 17 GM (MIRALAX) PACK PO SCH (21:20)
[2018-01-13] MEDS: SENNA W/DOCUSATE (SENOKOT S) TABLET PO SCH (21:20)
[2018-01-13] MEDS: TRESIBA FLEXTOUCH 200 UNITS/ML SC SCH (21:26)
[2018-01-13] MEDS: CATHETER FLUSH 10 ML SYR IV SCH (21:45)
[2018-01-14] MEDS: oxyCODONE/APAP 10/325MG (PERCOCET 10) TABLET PO PRN ×3 (03:20→18:58)
[2018-01-14] MEDS: BETHANECHOL 25 MG (URECHOLINE) TAB PO SCH ×4 (06:12→21:57)
[2018-01-14] MEDS: CATHETER FLUSH 10 ML SYR IV SCH ×3 (06:12→22:24)
[2018-01-14] MEDS: inSUlin ASPART (NovoLOG) 1 UNIT/0.01 ML (CHARGE PER UNIT) SC SCH ×4 (06:12→21:58)
[2018-01-14 06:20] VITALS: BP 110/69
[2018-01-14] MEDS: RT-ALBUTEROL SULF 2.5 MG/3 ML PRE-MIX VIAL INH SCH ×4 (07:03→18:46)
--- NOTE | 2018-01-14 08:34 | PM & R (SOAP) Progress Note ---
Subjective This was a face to face visit with the patient. Date Seen by Provider: Jan 14, 2018 Time Seen by Provider: 08:00 Subjective/Events-last exam Patient was seen in his room this AM Patient CGA for transfers Progressing well with therapies,Voiding and having BMS Objective Physician Exam Last Set of Vital Signs Vital Signs Date Time Temp Pulse Resp B/P (MAP) Pulse Ox O2 Delivery O2 Flow Rate FiO2 01/14/18 07:03 94 Room Air 01/14/18 06:20 99.4 64 20 110/69 (83) Capillary Refill : I&O Intake and Output 01/14/18 00:00 Intake Total 200 ml Balance 200 ml Intake Oral 200 ml # Voids 1 Daily Weight Change No General: Alert, Oriented X3, Cooperative, No Acute Distress HEENT: Atraumatic, PERRLA, EOMI, Mucous Memb Moist/[place] Neck: Supple, No JVD Lungs: Clear to Auscultation Heart: Regular Rate Abdomen: Normal Bowel Sounds, Soft, Other (mild tenderness Lumbar corset in place) Extremities: No Edema Skin: Other ([place] dressing over lumbar spine clean and dry) Neuro: Other (sensation intact Strength 4+/5) Results Lab Data Laboratory Tests 01/13/18 15:57: Glucometer 75 01/13/18 21:20: Glucometer 145H 01/14/18 05:42: Glucometer 78 Assessment/Plan Assessment and Plan Failed low back syndrome s/p redo P[place] Post op nausea and emesis resolved Chronic constipation on meds Postop urinary retention resolved DM controlled with med HTN controlled GERD on med Plan Continue PT/OT Team Conference next week 01-18-18 Goal return to home Modified Independent for adls and mobility skills Co-Morbidities that are continuing to impact the rehab process: (include details ) YOBANY RIOJAS MD Jan 14, 2018 08:34
[2018-01-14] MEDS: FINASTERIDE (PROSCAR) 5 MG TAB PO SCH (08:59)
[2018-01-14] MEDS: DOCUSATE SODIUM 100 MG (COLACE) CAP PO SCH ×2 (08:59→22:23)
[2018-01-14] MEDS: ALLOPURINOL 300 MG (ZYLOPRIM) TAB PO SCH (08:59)
[2018-01-14] MEDS: ASPIRIN E.C. 81 MG (ECOTRIN) TAB PO SCH (09:00)
[2018-01-14] MEDS: POLYETHYLENE GLYCOL 17 GM (MIRALAX) PACK PO SCH ×2 (09:00→22:23)
[2018-01-14] MEDS: SENNA W/DOCUSATE (SENOKOT S) TABLET PO SCH ×2 (09:01→22:23)
[2018-01-14 09:50] VITALS: BP 91/44
[2018-01-14] MEDS: CARVEDILOL 12.5 MG (COREG) TABLET PO SCH (09:51)
[2018-01-14] MEDS: FUROSEMIDE 20 MG (LASIX) TAB PO SCH (09:53)
[2018-01-14] MEDS: lisINopril 10 MG (PRINIVIL) TABLET PO SCH (09:53)
--- NOTE | 2018-01-14 11:47 | Physical Therapy Daily Note ---
PT Daily Note-Current Subjective States that he is doing okay. Transfers Functional [place] Measure 0=Not Assessed/NA 4=Minimal Assistance 1=Total Assistance 5=Supervision or Setup 2=Maximal Assistance 6=Modified [place] 3=Moderate Assistance 7=Complete IndependenceIRFPAI Quality Coding Scale 6 Independent with activity with or without an assistive device 5 Patient requires set up or clean up by helper. Patient completes activity by themselves 4 Supervision or touching assist (CGA). [place] provide cues , steadying assist 3 The helper provides less than half the effort to complete the activity 2 The helper provides more than half the effort to complete the activity 1 Dependent. The helper does all the effort to complete an activity 7 Patient refused to complete or attempt activity 9 The patient did not perform the activity before the current illness or injury 88 Not attempted due to Medical conditions or safety concerns Transfers (B, C, W/C) (FIM): 5 Sit to/from Stand: 5 Gait Training Gait (FIM): 5 Distance (FIM): 3=150 ft Distance: 300' x 2 Gait Level of Assist: 5 Gait Persons Needed: 1 Gait Assistive Device: FWW Assessment Current Status: Excellent Progress Patient did well with all gait activities. PT Short Term Goals Short Term Goals Time Frame: Jan 20, 2018 Transfers (B,C,W/C) (FIM): 5 Gait (FIM): 5 Gait Distance Comment: 300' Gait Level of Assist: 5 Gait Assistive Device: FWW PT Rn Integrated Goals Senior Care Goals PT Rn Integrated Goals Time Frame: Feb 03, 2018 Transfers (B,C,W/C) (FIM): 6 Sit to Lying (QC): 6 Lying-Sitting on Side/Bed(QC): 6 Sit to Stand (QC): 6 Rollin Roll Left to Right (QC): 6 Chair/Ksm-gs-Iejfc Xfer(QC): 6 Car Transfer (QC): 6 Gait (FIM): 6 Distance: 400' Walk 10 feet (QC): 6 Walk 10ft-Uneven Surface(QC): 6 Walk 50ft with 2 Turns (QC): 6 Walk 150 ft (QC): 6 Gait Level of Assist: 6 Gait Assistive Device: FWW Stairs (FIM): 5 # of Steps: 12 1 Step (curb) (QC): 4 4 Steps (QC): 4 12 Steps (QC): 4 Stairs Level Of Assist: 5 PT Plan Treatment/Plan Treatment Plan: Continue Plan of Care Treatment Plan: Bed Mobility, Education, Functional Activity Cristal, Functional Strength, Group Therapy, Gait, Safety, Therapeutic Exercise, Transfers Treatment Duration: Feb 03, 2018 Frequency: At least 5 of 7 days/Wk (IRF) Estimated Hrs Per Day: 1.5 hours per day Patient and/or Family Agrees t: Yes Time/GCodes Time In: 1125 Time Out: 1140 Total Billed Treatment Time: 15 Total Billed Treatment 1, GT x 15 DO ZUÑIGA PT Jan 14, 2018 11:46
[2018-01-14] MEDS: TAMSULOSIN 0.4 MG (FLOMAX) CAP PO SCH (17:06)
[2018-01-14 18:01] VITALS: BP 122/64
[2018-01-14] MEDS: SIMvastatin 10 MG (ZOCOR) TAB PO SCH (21:57)
[2018-01-14] MEDS: GABAPENTIN 400 MG (NEURONTIN) CAP PO SCH (21:57)
[2018-01-14] MEDS: amLODIPine 10 MG (NORVASC) TAB PO SCH (21:57)
[2018-01-14] MEDS: TRESIBA FLEXTOUCH 200 UNITS/ML SC SCH (21:58)
[2018-01-15] MEDS: oxyCODONE/APAP 10/325MG (PERCOCET 10) TABLET PO PRN ×4 (04:28→23:25)
[2018-01-15 05:38] VITALS: BP 119/64
[2018-01-15] MEDS: inSUlin ASPART (NovoLOG) 1 UNIT/0.01 ML (CHARGE PER UNIT) SC SCH ×4 (06:07→22:00)
[2018-01-15] MEDS: BETHANECHOL 25 MG (URECHOLINE) TAB PO SCH ×4 (06:25→22:02)
[2018-01-15] MEDS: CATHETER FLUSH 10 ML SYR IV SCH ×3 (06:25→23:32)
[2018-01-15] MEDS: RT-ALBUTEROL SULF 2.5 MG/3 ML PRE-MIX VIAL INH SCH ×4 (07:42→18:36)
[2018-01-15] MEDS: ALLOPURINOL 300 MG (ZYLOPRIM) TAB PO SCH (08:07)
[2018-01-15] MEDS: lisINopril 10 MG (PRINIVIL) TABLET PO SCH (08:08)
[2018-01-15] MEDS: ASPIRIN E.C. 81 MG (ECOTRIN) TAB PO SCH (08:08)
[2018-01-15] MEDS: FUROSEMIDE 20 MG (LASIX) TAB PO SCH (08:08)
[2018-01-15] MEDS: FINASTERIDE (PROSCAR) 5 MG TAB PO SCH (08:08)
[2018-01-15] MEDS: POLYETHYLENE GLYCOL 17 GM (MIRALAX) PACK PO SCH ×2 (08:10→21:00)
[2018-01-15] MEDS: SENNA W/DOCUSATE (SENOKOT S) TABLET PO SCH ×2 (08:10→21:00)
[2018-01-15] MEDS: DOCUSATE SODIUM 100 MG (COLACE) CAP PO SCH ×2 (08:10→21:00)
[2018-01-15] MEDS ORDERED: CALCITRIOL 0.25 MCG (ROCALTROL) CAPSULE PO SCH (09:00)
[2018-01-15] MEDS: LOPERAMIDE 2 MG (IMODIUM) CAP PO PRN ×2 (13:12→16:46)
[2018-01-15 16:22] VITALS: BP 136/80
[2018-01-15] MEDS: TAMSULOSIN 0.4 MG (FLOMAX) CAP PO SCH (17:40)
[2018-01-15] MEDS ORDERED: COLESTIPOL 1 GM (COLESTID) TAB PO PRN (18:30)
[2018-01-15] MEDS: TRESIBA FLEXTOUCH 200 UNITS/ML SC SCH (22:00)
[2018-01-15] MEDS: amLODIPine 10 MG (NORVASC) TAB PO SCH (22:00)
[2018-01-15] MEDS: GABAPENTIN 400 MG (NEURONTIN) CAP PO SCH (22:01)
[2018-01-15] MEDS: SIMvastatin 10 MG (ZOCOR) TAB PO SCH (22:02)
[2018-01-16] MEDS: LOPERAMIDE 2 MG (IMODIUM) CAP PO PRN (05:34)
[2018-01-16 05:37] VITALS: BP 98/52
[2018-01-16] MEDS: inSUlin ASPART (NovoLOG) 1 UNIT/0.01 ML (CHARGE PER UNIT) SC SCH ×2 (06:00→11:00)
[2018-01-16] MEDS: BETHANECHOL 25 MG (URECHOLINE) TAB PO SCH ×2 (06:40→11:24)
[2018-01-16] MEDS: CATHETER FLUSH 10 ML SYR IV SCH ×2 (06:44→14:45)
[2018-01-16] MEDS ORDERED: NS IV 1000 ML 1,000 ML IV SCH ×3 (07:05→08:33)
[2018-01-16] MEDS ORDERED: NS IV 1000 ML 1,000 ML ONE (07:08)
[2018-01-16] MEDS ORDERED: ONDANSETRON 4 MG/2 ML (SDV) Z0FRAN IVP PRN (07:15)
[2018-01-16] MEDS: NS IV 1000 ML 1,000 ML IV SCH ×3 (07:32→08:33)
[2018-01-16] MEDS: RT-ALBUTEROL SULF 2.5 MG/3 ML PRE-MIX VIAL INH SCH ×4 (07:37→14:58)
[2018-01-16] MEDS: FUROSEMIDE 20 MG (LASIX) TAB PO SCH ×3 (08:30→09:00)
[2018-01-16] MEDS: FINASTERIDE (PROSCAR) 5 MG TAB PO SCH (08:30)
[2018-01-16] MEDS: ALLOPURINOL 300 MG (ZYLOPRIM) TAB PO SCH (08:30)
[2018-01-16] MEDS: lisINopril 10 MG (PRINIVIL) TABLET PO SCH (08:30)
--- NOTE | 2018-01-16 08:30 | Physical Therapy Daily Note ---
PT Daily Note-Current Subjective Patient needs to use restroom pre tx, walks to bathroom with SBA. Ambulates back with SBA. Patient doesn't need help with pants. Patient gets back to bed with mod assist (needs help with both legs getting into bed). Patient states he his very sick and has been up since midnight with low blood sugars. His nurse affirms this and says he is dehydrated and that is why he has an IV. Patient states he is weak, dizzy, and "feels awful". Patient does not want to participate in therapy at this time, more than what he has done already. Will check with doctor when he is in. Transfers Functional [place] Measure 0=Not Assessed/NA 4=Minimal Assistance 1=Total Assistance 5=Supervision or Setup 2=Maximal Assistance 6=Modified [place] 3=Moderate Assistance 7=Complete IndependenceIRFPAI Quality Coding Scale 6 Independent with activity with or without an assistive device 5 Patient requires set up or clean up by helper. Patient completes activity by themselves 4 Supervision or touching assist (CGA). [place] provide cues , steadying assist 3 The helper provides less than half the effort to complete the activity 2 The helper provides more than half the effort to complete the activity 1 Dependent. The helper does all the effort to complete an activity 7 Patient refused to complete or attempt activity 9 The patient did not perform the activity before the current illness or injury 88 Not attempted due to Medical conditions or safety concerns Treatments toileting, transfers, bed mobility Assessment Current Status: Poor Progress Patient is ill PT Short Term Goals Short Term Goals Time Frame: Jan 20, 2018 Transfers (B,C,W/C) (FIM): 5 Gait (FIM): 5 Gait Distance Comment: 300' Gait Level of Assist: 5 Gait Assistive Device: FWW PT Message Broker Developer Goals Snf Goals PT Snf Goals Time Frame: Feb 03, 2018 Transfers (B,C,W/C) (FIM): 6 Sit to Lying (QC): 6 Lying-Sitting on Side/Bed(QC): 6 Sit to Stand (QC): 6 Rollin Roll Left to Right (QC): 6 Chair/Gzu-qo-Whgmo Xfer(QC): 6 Car Transfer (QC): 6 Gait (FIM): 6 Distance: 400' Walk 10 feet (QC): 6 Walk 10ft-Uneven Surface(QC): 6 Walk 50ft with 2 Turns (QC): 6 Walk 150 ft (QC): 6 Gait Level of Assist: 6 Gait Assistive Device: FWW Stairs (FIM): 5 # of Steps: 12 1 Step (curb) (QC): 4 4 Steps (QC): 4 12 Steps (QC): 4 Stairs Level Of Assist: 5 PT Plan Problem List Problem List: Activity Tolerance, Functional Strength, Safety, Balance, Gait, Transfer, Bed Mobility Treatment/Plan Treatment Plan: Continue Plan of Care Treatment Plan: Bed Mobility, Education, Functional Activity Cristal, Functional Strength, Group Therapy, Gait, Safety, Therapeutic Exercise, Transfers Treatment Duration: Feb 03, 2018 Frequency: At least 5 of 7 days/Wk (IRF) Estimated Hrs Per Day: 1.5 hours per day Patient and/or Family Agrees t: Yes Safety Risks/Education Patient Education: Gait Training, Transfer Techniques, Correct Positioning, Safety Issues Teaching Recipient: Patient Teaching Methods: Demonstration, Discussion Response to Teaching: Reinforcement Needed Time/GCodes Time In: 0800 Time Out: 0900 Total Billed Treatment Time: 30 Total Billed Treatment 1 visit FA 30' DESIREE REZA PT Jan 16, 2018 08:30
[2018-01-16] MEDS: POLYETHYLENE GLYCOL 17 GM (MIRALAX) PACK PO SCH (08:31)
[2018-01-16] MEDS: SENNA W/DOCUSATE (SENOKOT S) TABLET PO SCH (08:31)
[2018-01-16] MEDS: DOCUSATE SODIUM 100 MG (COLACE) CAP PO SCH (08:31)
[2018-01-16] MEDS: ASPIRIN E.C. 81 MG (ECOTRIN) TAB PO SCH (08:31)
--- NOTE | 2018-01-16 11:20 | Occupational Ther Daily Note ---
OT Current Status-Daily Note Subjective Pt. reports that he is not feeling well at all. States that he was up all night with blood sugar issues. Pt. reports pain in back and in legs. Has had pain medication. Nursing was also notified that pt. reports having diarrhea throughout the night. Appearance Pt. is sitting on side of bed. Has already showered self in the night. Agrees to walk with OT. Mental Status/Objective Patient Orientation: Person, Place Functional Brooks Measure 0=Not Assessed/NA 4=Minimal Assistance 1=Total Assistance 5=Supervision or Setup 2=Maximal Assistance 6=Modified Brooks 3=Moderate Assistance 7=Complete Brooks Attachments: IV, Oxygen ADL-Treatment Functional Brooks Measure 0=Not Assessed/NA 4=Minimal Assistance 1=Total Assistance 5=Supervision or Setup 2=Maximal Assistance 6=Modified Brooks 3=Moderate Assistance 7=Complete IndependenceIRFPAI Quality Coding Scale 6 Independent with activity with or without an assistive device 5 Patient requires set up or clean up by helper. Patient completes activity by themselves 4 Supervision or touching assist (CGA). Ford provide cues , steadying assist 3 The helper provides less than half the effort to complete the activity 2 The helper provides more than half the effort to complete the activity 1 Dependent. The helper does all the effort to complete an activity 7 Patient refused to complete or attempt activity 9 The patient did not perform the activity before the current illness or injury 88 Not attempted due to Medical conditions or safety concerns Bathing (FIM): 6 (Per pt. report) Shower/Bathe Self (QC): 6 (per pt. report) Upper Body (FIM): 6 Upper Body Dressing (QC): 6 Lower Body Dressing (FIM): 6 Lower Body Dressing (QC): 6 (per pt. report) On/Off Footwear (QC): 6 Toileting (FIM): 6 Toileting Hygiene (QC): 6 Transfers (B, C, W/C) (FIM): 5 Toilet/Commode Transfer (FIM): 5 Toilet Transfer (QC): 4 Other Treatment Pt. agrees to ambulate with OT to "loosen my legs up." Pt. is wearing oxygen as he dropped in the night to 88%. Sats at 93% so pt. requested to doff oxygen to ambulate. Pt. ambulated approximately 100 feet with SBA, and requested to sit down to rest. Pt.'s sats taken and were 88%. However, they jumped rather quickly to 93%. After resting, pt. requested to ambulate back to room. Transferred back to side of bed and requested to sit for awhile. Pt. declines and further activity at this time. All needs met in room. Nursing is notified of pt not feeling well. Education OT Patient Education: Correct positioning, Modified ADL techniques, Progress toward Goal/Update tx plan, Purpose of tx/functional activities, Reviewed precautions, Rehab process, Transfer techniques Teaching Recipient: Patient Teaching Methods: Demonstration, Discussion Response to Teaching: Verbalize Understanding, Return Demonstration OT Short Term Goals Short Term Goals Transfers (B,C,W/C) (FIM): 5 1=Demonstrate adherence to instructed precautions during ADL tasks. 2=Patient will verbalize/demonstrate understanding of assistive devices/ modifications for ADL. 3=Patient will improve strength/tolerance for activity to enable patient to perform ADL's. 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 [employer] Goals Time Frame: Jan 27, 2018 Eating (FIM): 6 Eating (QC): 6 Groomin Oral Hygiene (QC): 6 Bathing(FIM): 5 Shower/Bathe Self (QC): 5 Upper Body Dressing(FIM): 6 Upper Body Dressing (QC): 6 Lower Body Dressing(FIM): 6 Lower Body Dressing (QC): 6 On/Off Footwear (QC): 6 Toileting(FIM): 6 Toileting Hygiene (QC): 6 Transfers (B,C,W/C) (FIM): 6 Toilet/Commode Transfer(FIM): 6 Toilet/Commode Transfer (QC): 6 Shower Transfer(FIM): 5 Additional Goals: 1-Demonstrate ADL Tasks, 2-Verbalize Understanding, 3- ImproveStrength/Cristal 1=Demonstrate adherence to instructed precautions during ADL tasks. 2=Patient will verbalize/demonstrate understanding of assistive devices/ modifications for ADL. 3=Patient will improve strength/tolerance for activity to enable patient to perform ADL's. OT Education/Plan Problem List/Assessment Assessment: Decreased Activ Tolerance, Decreased UE Strength, Dependent Transfers, Impaired I ADL's, Impaired Self-Care Skills Discharge Recommendations Plan/Recommendations: Continue POC Therapy D/C Recommendations: Home w/ Family Support Treatment Plan/Plan of Care Treatment,Training & Education: Yes Patient would benefit from OT for education, treatment and training to promote independence in ADL's, mobility, safety and/or upper extremity function for ADL' s. Plan of Care: ADL Retraining, Functional Mobility, Group Exercise/Act as Ind, UE Funct Exercise/Act Treatment Duration: Jan 27, 2018 Frequency: At least 5 of 7 days/Wk (IRF) Estimated Hrs Per Day: 1.5 hours per day Agreement: Yes Rehab Potential: Good Time/GCodes Start Time: 10:45 Stop Time: 11:05 Total Time Billed (hr/min): 20 Billed Treatment Time 1, FA x 20minutes Pt. ill and unable to tolerate further therapy at this time. DEVAUGHN GUTIERREZ OT Jan 16, 2018 11:20
[2018-01-16] MEDS: oxyCODONE/APAP 10/325MG (PERCOCET 10) TABLET PO PRN (11:25)
[2018-01-16 14:11] LABS: ALBUMIN 3.2 GM/DL (3.2-4.5); BILIRUBIN,TOTAL 0.8 MG/DL (0.1-1.0); CALCIUM 8.7 MG/DL (8.5-10.1); CREATININE SERUM 6.48 MG/DL (0.60-1.30); POTASSIUM 6.1 MMOL/L (3.6-5.0); TOTAL PROTEIN 6.1 GM/DL (6.4-8.2)
--- NOTE | 2018-01-16 14:25 | Diagnostic Imaging Report ---
INDICATION: Decreased oxygen saturation. TECHNIQUE: Single view chest at 2:01 PM. CORRELATION STUDY: 01/12/2018. FINDINGS: Limited depth of inspiration. Heart size is enlarged but generally stable. Vasculature is slightly increased. Suggestion of bilateral perihilar infiltrates present. Remaining more peripheral lung gay are otherwise clear and improved. Thoracic spine stimulator is noted. IMPRESSION: Cardiac enlargement with mild vascular congestion. There does appear to be some degree of mild perihilar infiltrate versus edema. The remaining lung gay are otherwise improved and partially cleared. Dictated by: Dictated on workstation # [id number]
--- NOTE | 2018-01-16 14:45 | Physical Therapy Progress Note ---
Therapy Progress Note Patient did not participate in group therapy this afternoon. He refused and stated that he was having cold sweats, tremors, and double vision. The tremors were visible. Nurse notified. DESIREE REZA PT Jan 16, 2018 14:45
--- NOTE | 2018-01-17 10:05 | Therapy Team Discharge Summary ---
Therapy Discharge Summary Discharge Recommendations Date of Discharge 01-16-18 Therapy D/C Recommendations: 24 hr Supervision Occupational Therapy Pt. has been seen by occupational therapy to increase independence. Pt. was doing well on rehab unit with physical activity. However, began to have medical issues and was transferred to ICU. Decreased Activ Tolerance, Decreased UE Strength, Dependent Transfers, Impaired I ADL's, Impaired Self-Care Skills PT Team Sports Sales Associate Goals Correction Goals PT Correction Goals Time Frame: Feb 03, 2018 Transfers (B,C,W/C) (FIM): 6 Roll Left to Right (QC): 6 Sit to Lying (QC): 6 Lying-Sitting on Side/Bed(QC): 6 Sit to Stand (QC): 6 Chair/Vfu-tw-Auose Xfer(QC): 6 Car Transfer (QC): 6 Gait (FIM): 6 Distance: 400' Walk 10 feet (QC): 6 Walk 10ft-Uneven Surface(QC): 6 Walk 50ft with 2 Turns (QC): 6 Walk 150 ft (QC): 6 Gait Level of Assist: 6 Gait Assistive Device: FWW Stairs (FIM): 5 # of Steps: 12 1 Step (curb) (QC): 4 4 Steps (QC): 4 12 Steps (QC): 4 Stairs Level Of Assist: 5 OT Correction Goals Team Sports Sales Associate Goals Time Frame: Jan 27, 2018 Eating (FIM): 6 (not met) Eating (QC): 6 (not met) Oral Hygiene (QC): 6 (not met) Grooming(FIM): 6 (not met) Bathing(FIM): 5 (not met) Shower/Bathe Self (QC): 5 (not met) Upper Body Dressing(FIM): 6 (not met) Upper Body Dressing (QC): 6 (not met) Lower Body Dressing(FIM): 6 (not met) Lower Body Dressing (QC): 6 (not met) On/Off Footwear (QC): 6 (not met) Toileting(FIM): 6 (not met) Toileting Hygiene (QC): 6 (not met) Transfers (B,C,W/C) (FIM): 6 (not met) Toilet/Commode Transfer(FIM): 6 (not met) Toilet/Commode Transfer (QC): 6 (not met) Shower Transfer(FIM): 5 (not met) Additional Goals: 1-Demonstrate ADL Tasks, 2-Verbalize Understanding, 3- ImproveStrength/Cristal 1=Demonstrate adherence to instructed precautions during ADL tasks. 2=Patient will verbalize/demonstrate understanding of assistive devices/ modifications for ADL. 3=Patient will improve strength/tolerance for activity to enable patient to perform ADL's. Speech Correction Goals Correction Goals No LTGs established as skilled ST not indicated. DEVAUGHN GUTIERREZ OT Jan 17, 2018 10:05
--- NOTE | 2018-01-17 10:18 | Therapy Team Discharge Summary ---
Therapy Discharge Summary Discharge Recommendations Date of Discharge Therapy D/C Recommendations: 24 hr Supervision Physical Therapy Patient came to rehab following lumbar spine surgery. Upon evaluation patient performed bed mobility with SBA, supine <-> sit min assist, stand pivot transfers CGA, car transfer CGA, ambulated 250' with a rolling walker with CGA, including 50' with at least 2 turns of 90 degrees and 10' over an uneven surface , and can go up and down 4 steps using 2 handrails with CGA. Patient has been performing bed mobility and transfer training, balance and endurance training, functional strengthening, stair training, gait training, and education. Patient recently had medical complications and had to be transferred to ICU. He has not met any of his terminal carman goals. Patient will be discharged at this time. Occupational Therapy Decreased Activ Tolerance, Decreased UE Strength, Dependent Transfers, Impaired I ADL's, Impaired Self-Care Skills PT Shelter Goals Shelter Goals PT Shelter Goals Time Frame: Feb 03, 2018 Transfers (B,C,W/C) (FIM): 6 Roll Left to Right (QC): 6 Sit to Lying (QC): 6 Lying-Sitting on Side/Bed(QC): 6 Sit to Stand (QC): 6 Chair/Msp-el-Mxtre Xfer(QC): 6 Car Transfer (QC): 6 Gait (FIM): 6 Distance: 400' Walk 10 feet (QC): 6 Walk 10ft-Uneven Surface(QC): 6 Walk 50ft with 2 Turns (QC): 6 Walk 150 ft (QC): 6 Gait Level of Assist: 6 Gait Assistive Device: FWW Stairs (FIM): 5 # of Steps: 12 1 Step (curb) (QC): 4 4 Steps (QC): 4 12 Steps (QC): 4 Stairs Level Of Assist: 5 OT Booking Officer Goals Booking Officer Goals Time Frame: Jan 27, 2018 Eating (FIM): 6 (not met) Eating (QC): 6 (not met) Oral Hygiene (QC): 6 (not met) Grooming(FIM): 6 (not met) Bathing(FIM): 5 (not met) Shower/Bathe Self (QC): 5 (not met) Upper Body Dressing(FIM): 6 (not met) Upper Body Dressing (QC): 6 (not met) Lower Body Dressing(FIM): 6 (not met) Lower Body Dressing (QC): 6 (not met) On/Off Footwear (QC): 6 (not met) Toileting(FIM): 6 (not met) Toileting Hygiene (QC): 6 (not met) Transfers (B,C,W/C) (FIM): 6 (not met) Toilet/Commode Transfer(FIM): 6 (not met) Toilet/Commode Transfer (QC): 6 (not met) Shower Transfer(FIM): 5 (not met) Additional Goals: 1-Demonstrate ADL Tasks, 2-Verbalize Understanding, 3- ImproveStrength/Cristal 1=Demonstrate adherence to instructed precautions during ADL tasks. 2=Patient will verbalize/demonstrate understanding of assistive devices/ modifications for ADL. 3=Patient will improve strength/tolerance for activity to enable patient to perform ADL's. Speech Shelter Goals Booking Officer Goals No LTGs established as skilled ST not indicated. DESIREE REZA PT Jan 17, 2018 10:18
--- NOTE | 2018-01-17 13:35 | Individualized Plan of Care ---
Individualized Plan of Care Rehab Nursing IPOC Order Admission Date Jan 13, 2018 at 11:00 Current Orders Orders Pt Evaluate/Treat Request (01/13/18 10:14) Request Ot Evaluate & Treat (01/13/18 10:14) Request For Cognitive Services (01/13/18 10:14) Admission Order(Inpt,Obs,Sdc) (01/13/18 11:51) Vital Signs: Routine (Order) 08,16,00 (01/13/18 11:51) Sequential Compression Device 08,20 (01/13/18 11:51) Research Soil Scientist-Inpt Rehab Con (01/13/18 11:51) Rehab Nursing Orders-Ipoc (01/13/18 11:51) Physical Therapy Rehab Orders (01/13/18 11:51) Occupational Therapy Rehab Ord (01/13/18 11:51) Speech Therapy Rehab Orders (01/13/18 11:51) Turn And Reposition Q2HR (01/13/18 11:51) Intake & Output 06,14,22 (01/13/18 11:51) Weekly Weight (Lbs) WEEK (01/13/18 11:51) Code/Resuscitation (01/13/18 11:51) Accucheck Achs ACHS (01/13/18 11:57) (Nf) Insulin Degludec (Tresiba Flextouch (01/13/18 21:00) Acetaminophen Tablet (Tylenol Tablet) (01/13/18 12:00) Albuterol Pre-Mix Nebs (Rt) (Proventil (01/13/18 15:00) Allopurinol Tablet (Zyloprim Tablet) (01/14/18 09:00) Aspirin Enteric Coated Tablet (Ecotrin T (01/14/18 09:00) Bethanechol Tablet (Urecholine Tablet) (01/13/18 16:00) Carvedilol Tablet (Coreg Tablet) (01/13/18 21:00) Docusate Sodium Capsule (Colace Capsule) (01/13/18 21:00) Finasteride Tablet (Proscar Tablet) (01/14/18 09:00) Furosemide Tablet (Lasix Tablet) (01/14/18 09:00) Pantoprazole Tablet (Protonix Tablet) (01/13/18 12:00) Patient May Use Own Med,Single (Patient (01/13/18 12:00) Polyethylene Glycol Powder Pkt (Miralax (01/13/18 21:00) Senna S Tablet (Senokot S Tablet) (01/13/18 21:00) Simvastatin Tablet (Zocor Tablet) (01/13/18 21:00) Tamsulosin Capsule (Flomax Capsule) (01/13/18 18:00) Amlodipine Tablet (Norvasc Tablet) (01/13/18 21:00) Insulin Aspart (Novolog) (Novolog (Charg (01/13/18 16:00) Lisinopril Tablet (Zestril Tablet) (01/14/18 09:00) Oxycodone/Acet 10/325mg Tablet (Percocet (01/13/18 12:00) Tizanidine Tablet (Zanaflex Tablet) (01/13/18 12:00) Svn Small Volume Nebulizer (01/13/18 11:57) Gabapentin Capsule/Tablet (Neurontin Cap (01/13/18 21:00) General/Regular (01/13/18 Lunch) Consult Hospitalist (01/13/18 12:23) Calcitriol Capsule (Rocaltrol Capsule) (01/15/18 09:00) Patient May Use Own Med,Single (Patient (01/13/18 14:15) Accucheck Achs ACHS (01/13/18 14:37) Sodium Chloride Flush (Catheter Flush Sy (01/13/18 15:45) Sodium Chloride Flush (Catheter Flush Sy (01/13/18 22:00) Ambulate TID (01/13/18 15:37) Sequential Compression Device 08,20 (01/13/18 15:37) Dvt/Vte Risk - Notifiy Physici 08 (01/13/18 15:37) Patient Visit (01/13/18 ) Pt Eval Moderate Complexity (01/13/18 ) Gait Training, Ea 15 Min (01/13/18 ) Exercise Therap, Ea 15 Min (01/13/18 ) Patient Visit (01/13/18 ) Therapeutic, Group (01/13/18 ) Patient Visit (01/13/18 ) Speech Sound Lang Comp (01/13/18 ) Nursing Communication (Order) (01/13/18 17:41) Patient Visit (01/14/18 ) Gait Training, Ea 15 Min (01/14/18 ) Gabapentin Capsule/Tablet (Neurontin Cap (01/14/18 21:00) Loperamide Capsule (Imodium Capsule) (01/15/18 12:00) Colestipol Tablet (Colestid Tablet) (01/15/18 18:30) Ns Iv 1000 Ml (Sodium Chloride 0.9%) (01/16/18 07:15) Ns Iv 1000 Ml (Sodium Chloride 0.9%) (01/16/18 07:05) Ondansetron Injection (Zofran Injectio (01/16/18 07:15) Ns Iv 1000 Ml (Sodium Chloride 0.9%) (01/16/18 07:45) Ns Iv 1000 Ml (Sodium Chloride 0.9%) (01/16/18 07:08) Patient Visit (01/16/18 ) Gait Training, Ea 15 Min (01/16/18 ) Functional Activities, Ea 15 (01/16/18 ) Patient Visit (01/16/18 ) Functional Activities, Ea 15 (01/16/18 ) BNP (01/16/18 13:28) Comprehensive Metabolic Panel (01/16/18 13:28) Fibrin Degradation Products (01/16/18 13:28) Chest 1 View, Ap/Pa Only (01/16/18 13:28) Ekg Tracing (01/16/18 14:43) Transfer To Intensive Care Uni (01/16/18 14:50) Rehab Nursing Orders: Ongoing Assess. of Cognitive Status, Ongoing Assess. of Function Status, Disease Management & Educaiton, DVT Prophylaxis, Fall Prevention, Fluid/Electrolyte/Nutrition Mgmt, Infection Prevention, Medication Management & Education, Management of Risks & Complications, Management of Skin Intergrity, Nutrition Management, Pain Management, Patient/Family Support PT IPOC Problem List: Activity Tolerance, Functional Strength, Safety, Balance, Gait, Transfer, Bed Mobility Treatment Plan: Modify Plan, see comments Bed Mobility, Education, Functional Activity Cristal, Functional Strength, Group Therapy, Gait, Safety, Therapeutic Exercise, Transfers Treatment Duration: Feb 03, 2018 Frequency: At least 5 of 7 days/Wk (IRF) Estimated Hrs Per Day: 1.5 hours per day OT IPOC Problems: Decreased Activ Tolerance, Decreased UE Strength, Dependent Transfers , Impaired I ADL's, Impaired Self-Care Skills OT Treatment, Training and Edu: Yes Plan of Care: ADL Retraining, Functional Mobility, Group Exercise/Act as Ind, UE Funct Exercise/Act Treatment Duration: Jan 27, 2018 Frequency: At least 5 of 7 days/Wk (IRF) Estimated Hrs Per Day: 1.[address] IPOC Speech Therapy Treatment Plan: Modify Plan, See Comments (no ST indicated) Treatment Duration: Jan 17, 2018 Frequency: Modified Program (IRF) (0) Estimated Hrs Per Day: Other (0) Research Soil Scientist/Case Mgmt Research Soil Scientist/Case Managemen: Discharge Planning, Patient/Family Counseling Dietitian/Mortuary Technician Dietitian/Mortuary Technician to monitor nutritional status and make changes and/or recommendations as needed and work with speech pathology on dietary upgrades as the occur. Physician IPOC Medical Issues being managed closely and that require the 24 hour availability of a physician: DM HTN Acute renal failure Medical Issues: Bowel/Bladder Function, DVT Prophylaxis, Falls Precautions, Fluid/Electrolyte/Nutrition Balance, Infection Protection, Pain Management, Wound Care, Other (List) (as per above) Brief Synthesis of Preadmission Screen, Post-Admission Evaluation, and Therapy Evaluations: 72 yo male referred to [facility] due topostop complications following a spinal procedue at OSH Referred to IRU on Tuesday01-13-18 by Hospitalist Was progressing well with therapies but became ill on Tuesday01-16-18 with Labs revealing ARF transfereed to Medical floor and now being referrred to OSH that has Renal service available Medical Prognosis: Fair Anticipated Length of Stay: Patient discharge to Acute floor 01-16-18 Discussed case with Administration As per above Anticipated d/c Destination: To [facility] with renal service YOBANY RIOJAS MD Jan 17, 2018 13:35
== END 2018-01-16 15:08 | disposition short-term general hospital (02) | DRG 560 ==
PROVIDERS: ADMIT Physical Medicine & Rehabilitation; ATTEND Physical Medicine & Rehabilitation
DX: Z47.89 Encounter for other orthopedic aftercare (principal); N17.9 Acute kidney failure, unspecified; R33.9 Retention of urine, unspecified; E11.42 Type 2 diabetes mellitus with diabetic polyneuropathy; I10 Essential (primary) hypertension; G47.30 Sleep apnea, unspecified; K21.9 Gastro-esophageal reflux disease without esophagitis; K59.09 Other constipation; E78.00 Pure hypercholesterolemia, unspecified; M19.90 Unspecified osteoarthritis, unspecified site; Z79.4 Long term (current) use of insulin
CPT/HCPCS: 36415; 71045; 80053; 82962; 83880; 85379; 93005; 94640; 94664; 94760

== ENCOUNTER 2018-01-16 14:58 | Inpatient (IN) | payer MEDICARE, OTHER ==
[~2018-01-16] VITALS: Ht 175.3 cm; Wt 94.3 kg
[2018-01-16] VITALS (14 sets, daily range): BP systolic 78–138; BP diastolic 44–68
--- NOTE | 2018-01-16 15:12 | History & Physical-Hospitalist ---
History of Present Illness HPI/Chief Complaint Pt is a 72yoCM with PMH IDDMI, HTN, CKD who is being admitted to the ICU for acute renal failure. He was in inpatient rehab recovering from back surgery when he began to have dizzy spells with diaphoresis. He had been constipated but had been given laxatives and over night had roughly 30 bowel movements. He otherwise had no complaints and had been participating with therapy well prior to today. Labs were obtained and he was found to be in a cute renal failure with severe hyperkalemia. He was transferred to the ICU for treatment. Source: patient Date Seen 01/16/18 Time Seen by Provider: 15:24 Attending Physician Mike Driscoll MD PCP Easu Ceron DO Referring Physician Date of Admission Home Medications & Allergies Home Medications Reviewed patient Home Medication Reconciliation performed by pharmacy medication reconciliations counter intelligence technician and/or nursing. Patients Allergies have been reviewed. Allergies Allergies Coded Allergies Penicillins (Verified Allergy, Unknown, 01/11/18) Past Fnvtncr-Crmixt-Uwtrcf Hx Past Med/Social Hx: Reviewed Nursing Past Med/Soc Hx Patient Social History Smoking Status: Former Smoker Former Smoker, Quit: Jun 13, 1966 Type Used: Cigarettes Recent Hopitalizations: Yes (back surgery) Immunizations Up To Date Date of Pneumonia Vaccine: Jun 13, 2015 Date of Influenza Vaccine: Mar 10, 2017 Seasonal Allergies Seasonal Allergies: No Past Medical History Surgeries: Orthopedic Respiratory: Sleep Apnea Currently Using CPAP: No Currently Using BIPAP: No Cardiac: High Cholesterol, Hypertension Neurological: Neuropathy Genitourinary: Prostate Problems, Renal Failure Gastrointestinal: Gastroesophageal Reflux Musculoskeletal: Arthritis, Back Injury, Chronic Back Pain, Spasms Endocrine: Diabetes, Insulin dep History of Blood Disorders: No Family History Reviewed Nursing Family Hx Patient reports no known family medical history. Diabetes Review of Systems Constitutional: see HPI EENTM: no symptoms reported Respiratory: no symptoms reported Cardiovascular: no symptoms reported Gastrointestinal: see HPI Genitourinary: no symptoms reported Musculoskeletal: no symptoms reported Skin: no symptoms reported Psychiatric/Neurological: No Symptoms Reported Physical Exam Physical Exam Vital Signs Vital Signs - First Documented 01/16/18 01/16/18 15:08 17:01 Temp 97.6 Pulse 88 Resp 20 B/P (MAP) 101/50 (67) Pulse Ox 95 O2 Delivery Nasal Cannula O2 Flow Rate 2.00 FiO2 28 Capillary Refill : Height, Weight, BMI Height: 5'9.00" Weight: 195lbs. 2.0oz. 88.518370ge; 28.8 BMI Method: General Appearance: No Apparent Distress, WD/WN HEENT: PERRL/EOMI, Moist Mucous Membranes Neck: Non Tender, Supple Respiratory: Lungs Clear, No Respiratory Distress Cardiovascular: Regular Rate, Rhythm, No Murmur Gastrointestinal: Normal Bowel Sounds, Non Tender, Soft Extremity: Normal Capillary Refill, No Calf Tenderness Neurologic/Psychiatric: Alert, Oriented x3, Normal Mood/Affect Skin: Normal Color, Warm/Dry Results Results/Procedures Labs Patient resulted labs reviewed. 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 Baseline around 1.8-2.0 Likely prerenal due to GI losses Will check FeUr as is receiving Lasix Discussed possible transfer to tertiary center with nephrology for more definitive treatment but patient declined and would prefer to stay here Discussed with accounts receivable specialist, Dr Hamilton, comfortable with plan to manage here Continue high volume fluid resuscitation Qualifiers: Acute renal failure type: unspecified Chronic kidney disease stage: stage 3 (moderate) Qualified Codes: N17.9 - Acute kidney failure, unspecified; N18.3 - Chronic kidney disease, stage 3 (moderate) (2) Hyperkalemia Status: Acute Assessment & Plan: Albuterol, Lasix, Kayexalate, and Insulin ordered EKG showed normal T waves Will repeat BMP after above measures (3) Elevated d-dimer Assessment & Plan: Elevated but likely due to recent surgery Not tachycardiac and has been ambulatory Will start prophylactic heparin only at this time bilateral LE dopplers ordered consider V/Q scan as unable to perform CTA due to renal failure (4) Insulin dependent diabetes mellitus Status: Chronic Assessment & Plan: Continue SSI (5) Essential (primary) hypertension Status: Chronic Assessment & Plan: Well controlled, trend hold MARISELA (6) Fusion of lumbar spine Status: Acute Assessment & Plan: management per ortho Was in IRU for rehab from this (7) Constipation Status: Acute Assessment & Plan: Resolved, hold laxatives Qualifiers: Constipation type: unspecified constipation type Qualified Codes: K59.00 - Constipation, unspecified (8) Prophylactic measure Assessment & Plan: Heparin Reg Diet IVF per orders MIKE DRISCOLL MD Jan 16, 2018 15:12
[2018-01-16] MEDS ORDERED: SOD POLYSTERENE 15 GM/60 ML (KAYEXALATE) UNIT DOSE PO ONE (15:15)
[2018-01-16] MEDS ORDERED: NS IV 1000 ML 1,000 ML IV ONE (15:15)
[2018-01-16] MEDS ORDERED: NS 1000 ML IV BAG IV ONE (15:15)
[2018-01-16] MEDS ORDERED: inSUlin (REGULAR) HUMAN 1 UNIT/0.01 ML (CHARGE PER UNIT) IV ONE ×2 (15:15→19:45)
[2018-01-16] MEDS ORDERED: SODIUM BICARB 8.4% 50 MEQ/50 ML (ABBOTT) SYR IV ONE (15:15)
[2018-01-16] MEDS ORDERED: DEXTROSE 50% 50 ML (IMS) SYR IV ONE ×2 (15:15→19:45)
[2018-01-16] MEDS ORDERED: ENOXAPARIN 30 MG/0.3 ML (LOVENOX) SYR SC SCH (15:15)
[2018-01-16] MEDS ORDERED: CALCIUM GLUC. 10% 4.65 MEQ/10 ML VIAL IV ONE (15:15)
[2018-01-16] MEDS ORDERED: RT-ALBUTEROL SULF 2.5 MG/3 ML PRE-MIX VIAL INH NR (15:30)
[2018-01-16] MEDS ORDERED: LIDOCAINE UROJET 2% GEL 10 ML PKG ONE (15:45)
--- NOTE | 2018-01-16 16:29 | Diagnostic Imaging Report ---
INDICATION: Bilateral lower extremity edema. COMPARISON: None. TECHNIQUE: Duplex, godinez-scale and color-flow imaging of the bilateral lower extremity venous system was performed. FINDINGS: The common femoral vein, superficial femoral vein, profunda femoris, and popliteal veins are normal. These vessels show normal compressibility, color flow, and doppler augmentation. The deep calf veins, although not very well seen, demonstrate no distinct intraluminal thrombus. IMPRESSION: Negative venous Doppler of the bilateral lower extremities. Dictated by: Dictated on workstation # [id number]
--- NOTE | 2018-01-16 16:31 | Diagnostic Imaging Report ---
PROCEDURE: US Renal Bilateral. INDICATION: Acute renal failure TECHNIQUE: Multiple real-time grayscale sonographic images were obtained of the kidneys. COMPARISON: None FINDINGS: RIGHT KIDNEY: 10.9 x 6.2 x 5.8 cm. LEFT KIDNEY: 10.8 x 5.6 x 5.6 cm. The kidneys have an unremarkable appearance. There is relatively normal echotexture of the renal parenchyma. No hydronephrosis. URINARY BLADDER: Unremarkable in appearance. Bilateral ureteral jets are not visualized. However, there are no findings to suggest obstruction. IMPRESSION: 1. Unremarkable renal sonogram. Dictated by: Dictated on workstation # [id number]
[2018-01-16] MEDS ORDERED: NS IV 1000 ML 1,000 ML IV SCH ×2 (17:15→21:15)
[2018-01-16] MEDS ORDERED: oxyCODONE/APAP 10/325MG (PERCOCET 10) TABLET PO PRN (17:15)
[2018-01-16] MEDS ORDERED: ACETAMINOPHEN 325 MG TABLET PO PRN (17:30)
[2018-01-16] MEDS ORDERED: COLESTIPOL 1 GM (COLESTID) TAB PO PRN (17:30)
[2018-01-16] MEDS ORDERED: TAMSULOSIN 0.4 MG (FLOMAX) CAP PO SCH (17:30)
[2018-01-16] MEDS ORDERED: PANTOPRAZOLE 20 MG TABLET (PROTONIX) PO PRN (17:50)
[2018-01-16 18:50] LABS: BASOPHILS % (AUTO) 0 % (0-10); EOSINOPHILS # (AUTO) 0.1 10^3/uL (0.0-0.3); EOSINOPHILS % (AUTO) 1 % (0-10); HEMATOCRIT 27 % (40-54); HEMOGLOBIN 8.9 G/DL (13.3-17.7); LYMPHOCYTES # (AUTO) 0.9 X 10^3 (1.0-4.0); LYMPHOCYTES % (AUTO) 7 % (12-44); MEAN CORPUSCULAR HEMOGLOBIN 33 PG (25-34); MEAN CORPUSCULAR HGB CONC 34 G/DL (32-36); MEAN CORPUSCULAR VOLUME 99 FL (80-99); MONOCYTES # (AUTO) 1.2 X 10^3 (0.0-1.0); MONOCYTES % (AUTO) 10 % (0-12); NEUTROPHILS # (AUTO) 10.1 X 10^3 (1.8-7.8); NEUTROPHILS % (AUTO) 82 % (42-75); PLATELET COUNT 205 10^3/uL (130-400); RED BLOOD COUNT 2.69 10^6/uL (4.35-5.85); RED CELL DISTRIBUTION WIDTH 13.2 % (10.0-14.5); WHITE BLOOD COUNT 12.2 10^3/uL (4.3-11.0)
[2018-01-16 19:08] LABS: CALCIUM 8.5 MG/DL (8.5-10.1); CREATININE SERUM 6.19 MG/DL (0.60-1.30); POTASSIUM 5.3 MMOL/L (3.6-5.0)
[2018-01-16 19:21] LABS: MAGNESIUM 2.9 MG/DL (1.8-2.4); PHOSPHORUS 8.3 MG/DL (2.3-4.7)
[2018-01-16] MEDS ORDERED: FUROSEMIDE 40 MG/4 ML INJ (LASIX) IVP ONE (19:45)
[2018-01-16] MEDS ORDERED: PIPERACILLIN SODIUM/TAZOBACTAM 4.5 GM in D5W 100 ML IVPB 100 ML IV NR (20:00)
[2018-01-16] MEDS: RT-ALBUTEROL/IPRATROPIUM 3 ML (DUONEB) VIAL INH SCH (20:30)
[2018-01-16] MEDS ORDERED: SIMvastatin 10 MG (ZOCOR) TAB PO SCH (21:00)
[2018-01-16] MEDS ORDERED: amLODIPine 10 MG (NORVASC) TAB PO SCH (21:00)
[2018-01-16] MEDS ORDERED: GABAPENTIN 300 MG (NEURONTIN) CAP PO SCH (21:00)
[2018-01-16] MEDS ORDERED: GABAPENTIN 100 MG (NEURONTIN) CAP PO SCH (21:00)
[2018-01-16] MEDS: CARVEDILOL 12.5 MG (COREG) TABLET PO SCH (21:34)
[2018-01-16] MEDS: doxAzosin 2 MG (CARDURA) TAB PO SCH (21:35)
[2018-01-16] MEDS: inSUlin ASPART (NovoLOG) 1 UNIT/0.01 ML (CHARGE PER UNIT) SC SCH (21:41)
[2018-01-16 23:03] LABS: BILIRUBIN,URINE NEGATIVE (NEGATIVE); CLARITY,URINE CLEAR; COLOR,URINE YELLOW; GLUCOSE, URINE (UA) NEGATIVE (NEGATIVE); KETONES,URINE NEGATIVE (NEGATIVE); LEUKOCYTE ESTERASE ,URINE 2+ (NEGATIVE); NITRITE,URINE NEGATIVE (NEGATIVE); PH,URINE 5 (5-9); PROTEIN,URINE 3+ (NEGATIVE); UROBILINOGEN,URINE NORMAL (NORMAL)
[2018-01-16 23:11] LABS: BACTERIA,URINE TRACE /HPF
[2018-01-16 23:12] LABS: AMORPHOUS SEDIMENT,UR FEW AMOR URATES /LPF; GRANULAR CASTS,URINE 0-2 /LPF; HYALINE CASTS, URINE 0-2 /LPF
[2018-01-17] VITALS (14 sets, daily range): BP systolic 72–152; BP diastolic 42–87
[2018-01-17] MEDS ORDERED: oxyCODONE/APAP 10/325MG (PERCOCET 10) TABLET PO ONE ×3 (00:07→00:30)
[2018-01-17] MEDS ORDERED: FUROSEMIDE 40 MG/4 ML INJ (LASIX) ONE (00:07)
[2018-01-17] MEDS ORDERED: FUROSEMIDE 40 MG/4 ML INJ (LASIX) IV ONE ×2 (00:30→01:00)
[2018-01-17] MEDS ORDERED: PIPERACILLIN SODIUM/TAZOBACTAM 4.5 GM in D5W 100 ML IVPB 100 ML IV SCH (02:00)
[2018-01-17 02:20] LABS: CALCIUM 8.2 MG/DL (8.5-10.1); CREATININE SERUM 6.31 MG/DL (0.60-1.30); MAGNESIUM 2.8 MG/DL (1.8-2.4); PHOSPHORUS 8.4 MG/DL (2.3-4.7); POTASSIUM 5.3 MMOL/L (3.6-5.0)
[2018-01-17] MEDS ORDERED: BUMETANIDE 1 MG/4 ML (BUMEX) VIAL IV ONE ×2 (03:30→04:30)
[2018-01-17] MEDS ORDERED: METOLAZONE 5 MG (ZAROXOLYN) TAB PO ONE (03:45)
[2018-01-17 06:04] LABS: BASOPHILS % (AUTO) 0 % (0-10); EOSINOPHILS # (AUTO) 0.1 10^3/uL (0.0-0.3); EOSINOPHILS % (AUTO) 1 % (0-10); HEMATOCRIT 25 % (40-54); HEMOGLOBIN 8.1 G/DL (13.3-17.7); LYMPHOCYTES # (AUTO) 0.9 X 10^3 (1.0-4.0); MEAN CORPUSCULAR HEMOGLOBIN 33 PG (25-34); MEAN CORPUSCULAR HGB CONC 32 G/DL (32-36); MEAN CORPUSCULAR VOLUME 100 FL (80-99); MEAN PLATELET VOLUME 10.5 FL (7.4-10.4); MONOCYTES # (AUTO) 0.7 X 10^3 (0.0-1.0); MONOCYTES % (AUTO) 6 % (0-12); NEUTROPHILS # (AUTO) 10.8 X 10^3 (1.8-7.8); PLATELET COUNT 171 10^3/uL (130-400); RED BLOOD COUNT 2.49 10^6/uL (4.35-5.85); RED CELL DISTRIBUTION WIDTH 13.3 % (10.0-14.5); WHITE BLOOD COUNT 12.5 10^3/uL (4.3-11.0)
[2018-01-17 06:13] LABS: LYMPHOCYTES % (AUTO) 8 % (12-44); NEUTROPHILS % (AUTO) 85 % (42-75)
[2018-01-17] MEDS ORDERED: inSUlin ASPART (NovoLOG) 1 UNIT/0.01 ML (CHARGE PER UNIT) IV NR (06:15)
[2018-01-17] MEDS ORDERED: SODIUM BICARBONATE 8.4% VIAL 100 MEQ in 1/2 NS IV SOLUTION 1,000 ML IV SCH (06:15)
[2018-01-17] MEDS ORDERED: DEXTROSE 50% 50 ML (IMS) SYR IV NR (06:15)
[2018-01-17] MEDS ORDERED: SODIUM BICARB 8.4% 50 MEQ/50 ML (ABBOTT) SYR IV NR (06:15)
--- NOTE | 2018-01-17 06:16 | Pulmonary Progress Note ---
Subjective Time Seen by Provider: 06:53 Subjective/Events-last exam PT is now requiring high flow oxygen and has accessory muscle use. Sepsis Event Evaluation Height, Weight, BMI Height: 5'9.00" Weight: 208lbs. 0.0oz. 94.660136te; 30.7 BMI Method: Focused Exam Lactate Level 01/16/18 20:53: Lactic Acid Level 1.76 Exam Exam Vital Signs Date Time Temp Pulse Resp B/P (MAP) Pulse Ox O2 Delivery O2 Flow Rate FiO2 01/17/18 05:00 82 35 131/56 (81) 96 OxyMask 5.00 01/17/18 04:00 94 OxyMask 5.00 01/17/18 04:00 99.4 83 25 125/56 (79) 95 OxyMask 5.00 01/17/18 03:00 84 29 125/56 (79) 96 OxyMask 5.00 01/17/18 02:00 90 15 152/60 (90) 95 OxyMask 7.00 01/17/18 01:00 92 01/17/18 01:00 92 17 133/67 (89) 96 OxyMask 7.00 01/17/18 00:00 99.1 98 27 139/87 (104) 92 OxyMask 7.00 01/17/18 00:00 92 OxyMask 7.00 01/16/18 23:50 91 17 104/49 (67) 93 OxyMask 7.00 01/16/18 23:32 94 27 107/44 (65) 91 OxyMask 8.00 01/16/18 23:00 89 25 126/60 (82) 88 Nasal Cannula 5.00 01/16/18 22:00 91 14 117/68 (84) 91 Nasal Cannula 5.00 01/16/18 21:00 87 19 138/60 (86) 92 Nasal Cannula 5.00 01/16/18 20:31 91 Nasal Cannula 5.00 01/16/18 20:20 86 19 135/66 (89) 93 Nasal Cannula 5.00 01/16/18 20:00 98.9 88 20 124/58 (80) 90 Nasal Cannula 2.00 01/16/18 20:00 92 Nasal Cannula 2.00 01/16/18 19:00 90 01/16/18 19:00 90 16 127/65 (85) 92 Nasal Cannula 2.00 01/16/18 18:00 91 17 117/67 (84) 96 Nasal Cannula 2.00 01/16/18 17:17 97.9 Nasal Cannula 2.00 01/16/18 17:15 93 14 107/68 (81) 93 Nasal Cannula 2.00 01/16/18 17:01 93 28 01/16/18 17:00 92 28 78/54 (62) 91 Nasal Cannula 2.00 01/16/18 16:00 92 16 105/56 (72) 93 Nasal Cannula 2.00 01/16/18 15:48 98 Nasal Cannula 2.00 01/16/18 15:45 Nasal Cannula 2.00 01/16/18 15:08 97.6 88 20 101/50 (67) 95 Nasal Cannula 2.00 I & O 01/17/18 07:00 Intake Total 2800 ml Output Total 325 ml Balance 2475 ml Height & Weight Height: 5'9.00" Weight: 208lbs. 0.0oz. 94.290373zn; 30.7 BMI Method: General Appearance: Moderate Distress HEENT: PERRL/EOMI, Pharynx Normal Neck: Full Range of Motion, Non Tender, Supple Respiratory: Accessory Muscle Use, Crackles, Decreased Breath Sounds, Respiratory Distress, Rhonci Cardiovascular: Regular Rate, Rhythm Gastrointestinal: non tender, soft, distended Neurologic/Psychiatric: Alert, Oriented x3 Skin: Normal Color, Warm/Dry Lymphatic: No Adenopathy Results Lab Laboratory Tests 01/16/18 18:45 01/17/18 01:45 Assessment/Plan Assessment/Plan Acute worsening respiratory failure and hypoxia Acute on chronic renal failure - with only 27cc/hr of urine output last night - - Baseline Cr is 1.8-2.0 -Will start Bicarb gtt Metabolic acidosis -repeat 2 amps of Bicarb Hyperkalemia -repeat 10 units of insulin followed by D50 -2amps of NaHC03 Volume overload IDDM HTN hx Fusion of lumbar spine -PT was transferred to our inpatient rehab unit post surgery Kidney function continues to worsen with oliguria. PT was given the option of transferring for HD yesterday however he declined. I explained to him extensively this AM regarding worsening renal function. He wants to talk to his family prior to deciding on transfer. I explained to him secondary to worsening respiratory failure and volumed overload he needs to be intubated prior to transfer however once he is dialyzed he will probably be extubated. If pt elects on not being transferred I recommend hospice care. Critical Care: Critically Ill Patient DICK JEFF DO Jan 17, 2018 06:16
[2018-01-17 06:21] LABS: INR 1.2 (0.8-1.4); PROTHROMBIN TIME PATIENT 15.4 SEC (12.2-14.7)
[2018-01-17] MEDS ORDERED: PROPOFOL DRIP (ICU) 100 ML IV ONE (06:26)
[2018-01-17 06:29] LABS: ALBUMIN 2.8 GM/DL (3.2-4.5); BILIRUBIN,TOTAL 0.6 MG/DL (0.1-1.0); CALCIUM 7.9 MG/DL (8.5-10.1); CREATININE SERUM 6.45 MG/DL (0.60-1.30); MAGNESIUM 2.7 MG/DL (1.8-2.4); PHOSPHORUS 8.4 MG/DL (2.3-4.7); POTASSIUM 5.5 MMOL/L (3.6-5.0); TOTAL PROTEIN 5.2 GM/DL (6.4-8.2)
[2018-01-17] MEDS: inSUlin ASPART (NovoLOG) 1 UNIT/0.01 ML (CHARGE PER UNIT) SC SCH ×2 (06:32→11:55)
[2018-01-17] MEDS ORDERED: SODIUM BICARB 8.4% 50 MEQ/50 ML (ABBOTT) SYR ONE (06:36)
[2018-01-17] MEDS ORDERED: DEXTROSE 50% 50 ML (IMS) SYR ONE (06:40)
[2018-01-17 07:13] LABS: ABG BASE EXCESS -4.6 MMOL/L (-2.5-2.5); ABG OXYGEN SATURATION 91 % (94-100); ABG PCO2 43 MMHG (35-45); ABG PO2 65 MMHG (79-93); ABG TCO2 21.8 MMOL/L (21.0-31.0)
[2018-01-17 07:14] LABS: ALLENS TEST YES-POS; INSPIRED O2 5L; VENTILATOR NO
[2018-01-17 07:16] LABS: ABG PH 7.31 (7.37-7.43)
[2018-01-17] MEDS ORDERED: NS IV 1000 ML 1,000 ML ONE (07:17)
--- NOTE | 2018-01-17 07:19 | Pulmonary Consultation ---
History of Present Illness History of Present Illness Date of Consultation 01/16/18 1600 Late note today is 01/17 Time Seen by Provider: 06:59 Date of Admission History of Present Illness 72yo with hx of CKD, HTN, IDDM, chronic pain with lumbar stenosis transferred to our rehab unit s/p lumbar surgery for rehabilitation. I was asked to see patient secondary to worsening renal failure and ICU management. PT is being transferred to ICU now. Dr. Driscoll and I both explained to patient extensively current medical condition and worsening renal failure Allergies and Home Medications Allergies Coded Allergies: Penicillins (Verified Allergy, Unknown, 01/11/18) Home Medications Acetaminophen 325 Mg Tablet, 650 MG PO DAILY PRN for PAIN-MILD, (Reported) TAKES 2 (325 MG) TABLETS Allopurinol 300 Mg Tablet, 300 MG PO DAILY, (Reported) Amlodipine Besylate 10 Mg Tablet, 10 MG PO HS, (Reported) Aspirin 81 Mg Tablet.dr, 81 MG PO DAILY, (Reported) Calcitriol 0.25 Mcg Capsule, 0.25 MCG PO Q48H, (Reported) Carvedilol 25 Mg Tablet, 25 MG PO BID, (Reported) Chlorthalidone 25 Mg Tablet, 25 MG PO HS, (Reported) Cholecalciferol (Vitamin D3) 2,000 Unit Capsule, 2,000 UNIT PO DAILY, (Reported) Colestipol HCl 1 Gm Tablet, 2 GM PO BID PRN for DIARRHEA, (Reported) TAKES 2 (1 GM) TABLETS Diclofenac Sodium 100 Gm Gel..gram., TOP QID PRN for JOINT PAIN, (Reported) Diphenoxylate HCl/Atropine 1 Each Tablet, 1 TAB PO BID PRN for DIARRHEA, ( Reported) Doxazosin Mesylate 2 Mg Tablet, 2 MG PO BID, (Reported) Epinephrine 0.3 Mg/0.3 Ml Auto.injct, 0.3 MG INJ UD PRN for BEE STINGS, ( Reported) Finasteride 5 Mg Tablet, 5 MG PO DAILY, (Reported) Furosemide 20 Mg Tablet, 20 MG PO DAILY, (Reported) Gabapentin 300 Mg Capsule, 300 MG PO HS, (Reported) TAKES ALONG WITH 100MG CAPSULE FOR A TOTAL DOSE OF 400MG Gabapentin 100 Mg Capsule, 100 MG PO HS, (Reported) TAKES ALONG WITH 300MG CAPSULES FOR A TOTAL DOSE OF 400MG Glucagon,Human Recombinant 1 Mg/Kit Soln, INJ UD PRN for BS, (Reported) Hydrocodone/Acetaminophen 1 Each Tablet, 1 TAB PO BID PRN for PAIN-MODERATE, ( Reported) Insulin Aspart 300 Units/3 Ml Solution, 5-15 UNITS SC AC, (Reported) Insulin Degludec 200 Unit/1 Ml Insuln.pen, 54 UNITS SC HS, (Reported) Lisinopril 10 Mg Tablet, 10 MG PO DAILY, (Reported) Lovastatin 10 Mg Tablet, 10 MG PO HS, (Reported) Omeprazole 20 Mg Capsule.dr, 20 MG PO BID PRN for HEARTBURN, (Reported) Tamsulosin HCl 0.4 Mg Cap.er.24h, 0.4 MG PO 1730, (Reported) Tizanidine HCl 4 Mg Tablet, 4 MG PO TID PRN for MUSCLE SPASMS, (Reported) Tramadol HCl 50 Mg Tablet, 100 MG PO Q6H PRN for PAIN-MODERATE, (Reported) Past Znkygxc-Hnwnmg-Pkqibx Hx Patient Social History Alcohol Use: Denies Use Recreational Drug Use: No Smoking Status: Former Smoker Type Used: Cigarettes Former Smoker, Quit: Jun 13, 1966 Recent Foreign Travel: No Contact w/Someone Who Travel: No Recent Infectious Disease Expo: No Recent Hopitalizations: Yes (back surgery) Immunizations Up To Date Date of Pneumonia Vaccine: Jun 13, 2015 Date of Influenza Vaccine: Mar 10, 2017 Seasonal Allergies Seasonal Allergies: No Past Medical History Surgeries: Yes Orthopedic Respiratory: Yes Sleep Apnea Currently Using CPAP: No Currently Using BIPAP: No Cardiac: Yes High Cholesterol, Hypertension Neurological: No Neuropathy Genitourinary: Yes (URINARY RETENTION, ARF) Prostate Problems, Renal Failure Gastrointestinal: Yes (IBS) Gastroesophageal Reflux Musculoskeletal: Yes Arthritis, Back Injury, Chronic Back Pain, Spasms Endocrine: Yes Diabetes, Insulin dep HEENT: No Cancer: No Psychosocial: No (POST OP DELERIUM) Integumentary: No Blood Disorders: No Family Medical History Patient reports no known family medical history. Diabetes Review of Systems Time Seen by Provider: 10:34 Sepsis Event Evaluation Height, Weight, BMI Height: 5'9.00" Weight: 208lbs. 0.0oz. 94.035158rr; 30.7 BMI Method: Exam Exam Vital Signs Date Time Temp Pulse Resp B/P (MAP) Pulse Ox O2 Delivery O2 Flow Rate FiO2 01/17/18 05:00 82 35 131/56 (81) 96 OxyMask 5.00 8/18 04:00 94 OxyMask 5.00 01/17/18 04:00 99.4 83 25 125/56 (79) 95 OxyMask 5.00 01/17/18 03:00 84 29 125/56 (79) 96 OxyMask 5.00 01/17/18 02:00 90 15 152/60 (90) 95 OxyMask 7.00 01/17/18 01:00 92 01/17/18 01:00 92 17 133/67 (89) 96 OxyMask 7.00 01/17/18 00:00 99.1 98 27 139/87 (104) 92 OxyMask 7.00 01/17/18 00:00 92 OxyMask 7.00 01/16/18 23:50 91 17 104/49 (67) 93 OxyMask 7.00 01/16/18 23:32 94 27 107/44 (65) 91 OxyMask 8.00 01/16/18 23:00 89 25 126/60 (82) 88 Nasal Cannula 5.00 01/16/18 22:00 91 14 117/68 (84) 91 Nasal Cannula 5.00 01/16/18 21:00 87 19 138/60 (86) 92 Nasal Cannula 5.00 01/16/18 20:31 91 Nasal Cannula 5.00 01/16/18 20:20 86 19 135/66 (89) 93 Nasal Cannula 5.00 01/16/18 20:00 98.9 88 20 124/58 (80) 90 Nasal Cannula 2.00 01/16/18 20:00 92 Nasal Cannula 2.00 01/16/18 19:00 90 01/16/18 19:00 90 16 127/65 (85) 92 Nasal Cannula 2.00 01/16/18 18:00 91 17 117/67 (84) 96 Nasal Cannula 2.00 01/16/18 17:17 97.9 Nasal Cannula 2.00 01/16/18 17:15 93 14 107/68 (81) 93 Nasal Cannula 2.00 01/16/18 17:01 93 28 01/16/18 17:00 92 28 78/54 (62) 91 Nasal Cannula 2.00 01/16/18 16:00 92 16 105/56 (72) 93 Nasal Cannula 2.00 01/16/18 15:48 98 Nasal Cannula 2.00 01/16/18 15:45 Nasal Cannula 2.00 01/16/18 15:08 97.6 88 20 101/50 (67) 95 Nasal Cannula 2.00 I & O 01/17/18 07:00 Intake Total 2800 ml Output Total 325 ml Balance 2475 ml Height & Weight Height: 5'9.00" Weight: 208lbs. 0.0oz. 94.393885qa; 30.7 BMI Method: General Appearance: Moderate Distress HEENT: PERRL/EOMI, Pharynx Normal Neck: Full Range of Motion, Non Tender, Supple Respiratory: Accessory Muscle Use, Crackles, Decreased Breath Sounds, Respiratory Distress, Rhonci Cardiovascular: Regular Rate, Rhythm Gastrointestinal: non tender, soft, distended Neurologic/Psychiatric: Alert, Oriented x3 Skin: Normal Color, Warm/Dry Lymphatic: No Adenopathy Results Lab Laboratory Tests 01/16/18 18:45 01/17/18 01:45 01/17/18 05:50 Assessment/Plan Assessment/Plan Acute on chronic renal failure -PT prefers not to be transferred for HD. Will transfer him to ICU and give him fluid in attempt to improve kidney function without HD. Metabolic acidosis -repeat 2 amps of Bicarb Hyperkalemia -repeat 10 units of insulin followed by D50 -2amps of NaHC03 -30gms of Kayexalate PO Volume overload IDDM HTN hx Fusion of lumbar spine -PT was transferred to our inpatient rehab unit post surgery Kidney function continues to worsen with oliguria. PT was given the option of transferring for HD yesterday however he declined. I explained to him extensively this AM regarding worsening renal function. He is wants to talk to his family prior to deciding on transfer. I explained to him secondary to worsening respiratory failure and volumed overload he needs to be intubated prior to transfer however once he is dialyzed he will probably be extubated. If pt elects on not being transferred I recommend hospice care. DICK JEFF DO Jan 17, 2018 07:18
[2018-01-17] MEDS ORDERED: NOREPINEPHRINE 4 MG/4 ML (LEVOPHED) AMP IV ONE (07:28)
[2018-01-17] MEDS ORDERED: NS (IVPB) 250 ML ONE (07:28)
--- NOTE | 2018-01-17 07:35 | Diagnostic Imaging Report ---
INDICATION: Hypoxemia. Compared 01/16 FINDINGS: No focal consolidation. No effusion or pneumothorax. There is some mild perihilar and basilar atelectasis with borderline prominence of the central vascularity. IMPRESSION: Slight zones of atelectasis with mild and borderline central vascular congestion. No effusion or pneumothorax. Dictated by: Dictated on workstation # [id number]
[2018-01-17] MEDS ORDERED: NOREPINEPHRINE 4 MG in NS (IVPB) 250 ML IV SCH (07:37)
[2018-01-17] MEDS: RT-ALBUTEROL/IPRATROPIUM 3 ML (DUONEB) VIAL INH SCH ×2 (07:40→11:02)
--- NOTE | 2018-01-17 08:08 | Discharge Summary-Hospitalist ---
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 Remains mildly hyperkalemic and now oliguric with acidosis Baseline around 1.8-2.0 Pending FeUr as is receiving Lasix Discussed possible transfer to tertiary center with nephrology for more definitive treatment on 01/16 but patient declined and would prefer to stay here Now given oliguria and respiratory failure patient agreeable to transfer (2) Acute respiratory failure Status: Acute Assessment & Plan: Intubated this AM by Dr Hamilton (3) Hyperkalemia Status: Acute Assessment & Plan: Albuterol, Lasix, Kayexalate, and Insulin ordered EKG showed normal T waves Will repeat BMP after above measures (4) Elevated d-dimer Assessment & Plan: Elevated but likely due to recent surgery Not tachycardiac and has been ambulatory Will start prophylactic heparin only at this time bilateral LE dopplers ordered consider V/Q scan as unable to perform CTA due to renal failure (5) Insulin dependent diabetes mellitus Status: Chronic Assessment & Plan: Continue SSI (6) Essential (primary) hypertension Status: Chronic Assessment & Plan: Well controlled, trend hold MARISELA (7) Fusion of lumbar spine Status: Acute Assessment & Plan: management per ortho Was in IRU for rehab from this (8) Constipation Status: Acute Assessment & Plan: Resolved, hold laxatives (9) Prophylactic measure Assessment & Plan: Heparin Reg Diet IVF per orders Discharge Summary Procedures/Consulations Dr Hamilton- Pul Discharge Physical Exam Allergies: Coded Allergies: Penicillins (Verified Allergy, Unknown, 01/11/18) Vitals & I&Os Vital Signs Date Time Temp Pulse Resp B/P (MAP) Pulse Ox O2 Delivery O2 Flow Rate FiO2 01/17/18 12:00 95 Mechanical Ventilator 70 01/17/18 11:00 96 121/55 (77) 5.00 01/17/18 10:54 16 01/17/18 04:00 99.4 General Appearance: Other (intubated, sedated) Respiratory: Clear to Auscultation, Other (intubated) Hospital Course Pt admitted to the ICU for acute renal failure with hyperkalemia after declining transfer to tertiary center for nephrology evaluation on 01/16. He received aggressive treatment for hyperkalemia and high volume fluid resuscitation as FAUSTO was thought to be prerenal etiology given diarrhea. Despite aggressive treatment his creatinine did not improve and he remained mildly hyperkalemic and acidotic. He had a normal renal ultrasound and FeUr is pending. Over night he developed oliguria and acute respiratory failure likely due to fluid overload. He was intubated by Dr Hamilton on 01/17 and central line was placed for hypotension following intubation. He was placed on low dose Levophed. Of note his d-dimer yesterday was found to be 7 yesterday but CTA was unable to be obtained due to renal failure. Plan was for V/Q scan this morning but he decompensated prior to testing. D-dimer elevation was thought to be due to surgery and thus he was started on prophylactic heparin only at this time until further testing could be done. He had negative bilateral lower extremity dopplers as well. Labs (last 24 hrs) Microbiology 01/16/18 Blood Culture - Preliminary, Resulted No growth 01/17/18 Gram Stain, Resulted Pending 01/17/18 Sputum Culture - Final, Resulted Sent To [facility] See Comments Patient resulted labs reviewed. Pending Labs Imaging: Reviewed Imaging Report Discussion & Recommendations Discharge Planning: >30 minutes discharge planning Discharge Home Medications: Active Scripts Active Reported Diclofenac Sodium 100 Gm Gel..gram. TOP QID PRN Epinephrine 0.3 Mg/0.3 Ml Auto.injct 0.3 Mg INJ UD PRN Glucagon Emergency Kit (Glucagon,Human Recombinant) 1 Mg/Kit Soln INJ UD PRN Tamsulosin HCl 0.4 Mg Cap.er.24h 0.4 Mg PO 1730 Gabapentin 100 Mg Capsule 100 Mg PO HS TAKES ALONG WITH 300MG CAPSULES FOR A TOTAL DOSE OF 400MG Doxazosin Mesylate 2 Mg Tablet 2 Mg PO BID Allopurinol 300 Mg Tablet 300 Mg PO DAILY Calcitriol 0.25 Mcg Capsule 0.25 Mcg PO Q48H Lisinopril 10 Mg Tablet 10 Mg PO DAILY Tizanidine HCl 4 Mg Tablet 4 Mg PO TID PRN Tresiba Flextouch U-200 (Insulin Degludec) 200 Unit/1 Ml Insuln.pen 54 Units SC HS Novolog Flexpen (Insulin Aspart) 300 Units/3 Ml Solution 5-15 Units SC AC Finasteride 5 Mg Tablet 5 Mg PO DAILY Hydrocodon-Acetaminophn 10-325 (Hydrocodone/Acetaminophen) 1 Each Tablet 1 Tab PO BID PRN Acetaminophen 325 Mg Tablet 650 Mg PO DAILY PRN TAKES 2 (325 MG) TABLETS Lovastatin 10 Mg Tablet 10 Mg PO HS Furosemide 20 Mg Tablet 20 Mg PO DAILY Colestipol HCl 1 Gm Tablet 2 Gm PO BID PRN TAKES 2 (1 GM) TABLETS Vitamin D3 (Cholecalciferol (Vitamin D3)) 2,000 Unit Capsule 2,000 Unit PO DAILY Carvedilol 25 Mg Tablet 25 Mg PO BID Aspirin EC (Aspirin) 81 Mg Tablet.dr 81 Mg PO DAILY Tramadol HCl 50 Mg Tablet 100 Mg PO Q6H PRN Omeprazole 20 Mg Capsule.dr 20 Mg PO BID PRN Gabapentin 300 Mg Capsule 300 Mg PO HS TAKES ALONG WITH 100MG CAPSULE FOR A TOTAL DOSE OF 400MG Diphenoxylate-Atrop 2.5-0.025 (Diphenoxylate HCl/Atropine) 1 Each Tablet 1 Tab PO BID PRN Amlodipine Besylate 10 Mg Tablet 10 Mg PO HS Chlorthalidone 25 Mg Tablet 25 Mg PO HS Instructions to patient/family Please see electronic discharge instructions given to patient. Clinical Quality Measures DVT/VTE Risk/Contraindication: Risk Factor Score Per Nursin RFS Level Per Nursing on Admit: 4+=Very High Problem Qualifiers (1) Renal failure (ARF), acute on chronic: Acute renal failure type: unspecified Chronic kidney disease stage: stage 3 ( moderate) Qualified Codes: N17.9 - Acute kidney failure, unspecified; N18.3 - Chronic kidney disease, stage 3 (moderate) (2) Acute respiratory failure: Respiratory failure complication: hypoxia Qualified Codes: J96.01 - Acute respiratory failure with hypoxia (3) Constipation: Constipation type: unspecified constipation type Qualified Codes: K59.00 - Constipation, unspecified MIKE DONALDSON MD Jan 17, 2018 08:08
--- NOTE | 2018-01-17 08:32 | Pulmonary Progress Note ---
Standard Progress Note Progress Notes Time Seen by Provider: 08:24 PT decided he is ok with intubation and transfer to [facility]. Assessment & Plan Acute worsening respiratory failure and hypoxia -Will proceed with intubation -PT signed consent Acute on chronic renal failure - with only 27cc/hr of urine output last night - - Baseline Cr is 1.8-2.0 - Bicarb gtt Metabolic acidosis -2 amps of Bicarb was given this AM Hyperkalemia - 10 units of insulin followed by D50 -2amps of NaHC03 -recheck electrolytes Volume overload IDDM HTN hx Fusion of lumbar spine -PT was transferred to our inpatient rehab unit post surgery then transferred to ICU secondary to worsening renal failure. Kidney function continues to worsen with oliguria. PT was given the option of transferring for HD yesterday however he declined yesterday. I explained to him extensively this AM regarding worsening renal function. He decided on accepting transfer and intubation. I explained to him secondary to worsening respiratory failure and volumed overload he needs to be intubated prior to transfer however once he is dialyzed he will probably be extubated. Dr. Driscoll has arranged for transfer to [place] and they accept. Pt has no contacts in system for family. He told RN that he already let his rastafari friends know what was going on. Pt has signed consent for transfer, and intubation. Update: After intubation pt became hypotensive with SBP 60's. Liter of NS is currently infusing. Despite IVF, holding diprivan pt continues to remain hypotensive. Will start Levophed and place central line. I believe hypotension is from positive pressure ventilation and sedation vs other. Will titrate for SBP >90 and wean to D/C if possible. I have discussed extensively with medical staff and Dr. Driscoll. Total time spent with patient and medical staff not including intubation and central line placement is >60min. Critical Care: Critically Ill Patient Time spent with patient (mins): 60 Focused Exam Lactate Level 01/16/18 20:53: Lactic Acid Level 1.76 DICK JEFF DO Jan 17, 2018 08:32
--- NOTE | 2018-01-17 08:35 | Pulmonary Procedures ---
Pulmonary Procedures Date of Procedure Date of Service: Jan 17, 2018 Lumen: triple (US guided) Central Line Procedure: betadine prep, sterile drapes applied, sterile dressing applied Position: internal jugular (R) Anesthesia: Lidocaine Volume Anesthetic (ccs): 5 Complications: none Post Position: sutured, good blood return, position confirmed w/ CXR (pending ) Reason for Intubation: progressive respiratory failure Time of Intubation: 06:30 Intubation Method: orotracheal Tube Size: 8 Medications: Propofol, Versed Positive End Tide CO2: Yes Breath Sounds after Intubation: bilateral-equal Intubation Complications: no complications Post Intubation Xray: Yes (pending) DICK JEFF DO Jan 17, 2018 08:35
--- NOTE | 2018-01-17 08:37 | Pulmonary Procedures ---
Pulmonary Procedures Date of Procedure Date of Service: Jan 17, 2018 Reason for Intubation: Acute respiratory failure Time of Intubation: 06:30 Intubation Method: orotracheal Tube Size: 8 Medications: Propofol, Versed Positive End Tide CO2: Yes Breath Sounds after Intubation: bilateral-equal Intubation Complications: no complications Post Intubation Xray: Yes (pending) DICK JEFF DO Jan 17, 2018 08:37
[2018-01-17] MEDS ORDERED: VITAMIN D3 1,000 UNITS (CHOLECALCIFEROL) TABLET PO SCH (09:00)
[2018-01-17] MEDS ORDERED: FINASTERIDE (PROSCAR) 5 MG TAB PO SCH (09:00)
[2018-01-17] MEDS ORDERED: CALCITRIOL 0.25 MCG (ROCALTROL) CAPSULE PO SCH (09:00)
--- NOTE | 2018-01-17 09:28 | Diagnostic Imaging Report ---
INDICATION: Intubation. COMPARISON: 01/17/2018 at 12:18 AM. FINDINGS: ET tube has tip 4.5 cm above the ramez. Enteric tube courses into the stomach and off the [id number]. Right IJ central venous catheter has tip in the superior cavoatrial junction. Stable low lung volumes. Patchy bilateral perihilar and basilar opacities are present. No pleural effusion or pneumothorax. IMPRESSION: 1. Well-positioned support devices. 2. No pneumothorax. 3. No change in perihilar and basilar pulmonary opacities which may relate to multifocal infection, atelectasis or early pulmonary edema. Dictated by: Dictated on workstation # [id number]
[2018-01-17] MEDS: doxAzosin 2 MG (CARDURA) TAB PO SCH (09:31)
[2018-01-17] MEDS: CARVEDILOL 12.5 MG (COREG) TABLET PO SCH (09:32)
[2018-01-17 10:37] LABS: CALCIUM 7.4 MG/DL (8.5-10.1); CREATININE SERUM 6.27 MG/DL (0.60-1.30); POTASSIUM 5.1 MMOL/L (3.6-5.0)
[2018-01-17] MEDS ORDERED: MIDAZOLAM 5 MG/5 ML (VERSED) VIAL IV ONE (12:42)
== END 2018-01-17 12:34 | disposition short-term general hospital (02) | DRG 682 ==
LOC: ICU 15:08
PROVIDERS: ADMIT Family Medicine; ATTEND Family Medicine
PROC: 5A1935Z Respiratory Ventilation, Less than 24 Consecutive Hours (ICD-10-PCS; principal; 2018-01-17)
DX: N17.9 Acute kidney failure, unspecified (principal); J96.01 Acute respiratory failure with hypoxia; E87.2 Acidosis; I12.9 Hypertensive chronic kidney disease with stage 1 through stage 4 chronic kidney disease, or unspecified chronic kidney disease; N18.3 Chronic kidney disease, stage 3 (moderate); E87.5 Hyperkalemia; E11.40 Type 2 diabetes mellitus with diabetic neuropathy, unspecified; R79.89 Other specified abnormal findings of blood chemistry; E78.00 Pure hypercholesterolemia, unspecified; K59.00 Constipation, unspecified; K21.9 Gastro-esophageal reflux disease without esophagitis; N42.9 Disorder of prostate, unspecified; M19.91 Primary osteoarthritis, unspecified site; E87.70 Fluid overload, unspecified; R33.9 Retention of urine, unspecified; K58.9 Irritable bowel syndrome, unspecified; Z79.4 Long term (current) use of insulin; Z98.1 Arthrodesis status; Z79.01 Long term (current) use of anticoagulants; Z87.891 Personal history of nicotine dependence
CPT/HCPCS: 36415; 71045; 76770; 80048; 80053; 81000; 82570; 82805; 82962; 83605; 83735; 83880; 84100; 84540; 85025; 85610; 87040; 87070; 87081; 87205; 93970; 94002; 94640; 94799